=== PATIENT | male | born 1950 | race Caucasian/White ===

== ENCOUNTER → 2020-04-01 15:28 | Outpatient (BNVA) | payer MEDICARE, SELFPAY | PROVIDERS: PCP Family Medicine; Visit Provider Internal Medicine | DX: Z13.89 Encounter for screening for other disorder (principal) | CPT/HCPCS: Q3014 ==

== ENCOUNTER 2020-07-29 14:28 | Outpatient (REF) | payer MEDICARE, SELFPAY ==
[2020-07-29 14:57] LABS: MANUAL DIFF FLAG NO
[2020-07-29 15:01] LABS: Basophils Percent Auto 0.4 % (0-2); Eosinophils Absolute Auto 0.4 X10*3/uL (0.0-0.4); Eosinophils Percent Auto 4.6 % (0-4); Hematocrit 38.9 % (42-52); Hemoglobin 12.8 g/dl (14.0-18.0); Imm Gran Abs Auto 0.03 X10*3/uL (0.00-0.03); Imm Gran Pct Auto 0.4 % (0.0-0.4); Lymphocytes Absolute Auto 2.3 X10*3/uL (1.2-4.9); Lymphocytes Percent Auto 29.2 % (20-40); Mean Corpuscular HGB Conc 32.9 g/dl (31.0-36.0); Mean Corpuscular Hemoglobin 30.1 pg (27.0-33.0); Mean Corpuscular Volume 91.5 fL (80-98); Mean Platelet Volume 9.9 fL (9.4-12.4); Monocytes Absolute Auto 0.9 X10*3/uL (0.1-1.2); Monocytes Percent Auto 11.8 % (2-11); Neutrophils Absolute Auto 4.2 X10*3/uL (2.0-8.3); Neutrophils Percent Auto 53.6 % (45-73); Platelet Count 189 X10*3/uL (160-400); Red Blood Count 4.25 X10*6/uL (4.60-5.80); Red Cell Distribution Width 13.3 % (11.0-16.0); White Blood Count 7.8 X10*3/uL (4.8-10.8)
[2020-07-29 15:25] LABS: Alanine Aminotransferase 35 U/L (0-40); Anion Gap 11 (12-20); Aspartate Amino Transferase 31 U/L (5-37); Blood Urea Nitrogen 17 mg/dL (9-16); Carbon Dioxide 25 mmol/L (22-29); Chloride 110 mmol/L (96-108); Estimated Glomerular Filt Rate > 60; Potassium 3.9 mmol/L (3.3-5.1); Sodium 142 mmol/L (135-145)
== END 2020-07-29 14:29 | disposition home or self-care (01) ==
LOC: HO.LAB 14:28
PROVIDERS: PCP Family Medicine; Visit Provider Family Medicine
DX: I10 Essential (primary) hypertension (principal); E78.00 Pure hypercholesterolemia, unspecified; R06.02 Shortness of breath; Z79.899 Other long term (current) drug therapy
CPT/HCPCS: 36415; 80051; 82550; 82565; 84450; 84460; 84520; 85025

== ENCOUNTER 2020-12-30 14:30 | Outpatient (REF) | payer MEDICARE, SELFPAY ==
[2020-12-30 15:18] LABS: Cholesterol 116 mg/dL; Glucose Fasting 126 mg/dL (60-99); HDL Cholesterol 30 mg/dL; LDL Cholesterol Calculated 55 mg/dl; Triglycerides 156 mg/dL
== END 2020-12-30 14:31 | disposition home or self-care (01) ==
LOC: HO.LAB 14:30
PROVIDERS: PCP Family Medicine; Visit Provider Family Medicine
DX: E78.00 Pure hypercholesterolemia, unspecified (principal); I10 Essential (primary) hypertension; Z79.899 Other long term (current) drug therapy
CPT/HCPCS: 36415; 80061; 82947

== ENCOUNTER 2021-02-23 16:13 | Outpatient (REF) | payer MEDICARE, SELFPAY ==
[2021-02-23 19:09] LABS: Alanine Aminotransferase 35 U/L (0-40); Anion Gap 13 (12-20); Aspartate Amino Transferase 30 U/L (5-37); Blood Urea Nitrogen 15 mg/dL (9-16); Carbon Dioxide 25 mmol/L (22-29); Chloride 106 mmol/L (96-108); Estimated Glomerular Filt Rate > 60; Potassium 4.3 mmol/L (3.3-5.1); Sodium 140 mmol/L (135-145)
== END 2021-02-23 16:14 | disposition home or self-care (01) ==
LOC: HO.LAB 16:13
PROVIDERS: PCP Family Medicine; Visit Provider Family Medicine
DX: I10 Essential (primary) hypertension (principal); E78.00 Pure hypercholesterolemia, unspecified; Z79.899 Other long term (current) drug therapy
CPT/HCPCS: 36415; 80051; 82550; 82565; 84450; 84460; 84520

== ENCOUNTER → 2021-05-06 14:49 | Outpatient (BNVA) | payer MEDICARE, SELFPAY | PROVIDERS: PCP Family Medicine; Visit Provider Internal Medicine | DX: I25.10 Atherosclerotic heart disease of native coronary artery without angina pectoris (principal); I10 Essential (primary) hypertension; E78.5 Hyperlipidemia, unspecified; K21.9 Gastro-esophageal reflux disease without esophagitis; Z79.899 Other long term (current) drug therapy; Z95.5 Presence of coronary angioplasty implant and graft | CPT/HCPCS: 93005; 99212 ==

== ENCOUNTER 2021-09-25 10:37 | Outpatient (REF) | payer MEDICARE, SELFPAY ==
[2021-09-25 11:07] LABS: COVID-19 Test Negative (Negative); IDNOW Serial# 08D9AD1C
== END 2021-09-25 10:38 | disposition home or self-care (01) ==
LOC: HO.LAB 10:37
PROVIDERS: Visit Provider Internal Medicine
DX: Z20.822 Contact with and (suspected) exposure to COVID-19 (principal)
CPT/HCPCS: 87635; C9803

== ENCOUNTER 2021-09-28 13:09 | Outpatient (REF) | payer MEDICARE, SELFPAY ==
--- NOTE | ~2021-09-28 | XR_ITS ---
EXAMINATION: XR CHEST CLINICAL INFORMATION: Cough. COPD. COMPARISON: Previous chest x-ray most recent December 2018 TECHNIQUE: 2 views of the chest were obtained. FINDINGS: The cardiac and mediastinal contours are stable. The lungs are well inflated. There are increased markings seen in the left lower lobe questionable for small infiltrate. There is blunting at the left costophrenic angle questionable for small left pleural effusion. The right lung is clear. There are degenerative changes of the spine. XR/XR chest 2V IMPRESSION: Well-inflated lungs. Question small left lower lobe infiltrate and left pleural effusion.
== END 2021-09-28 13:10 | disposition home or self-care (01) ==
LOC: HO.XRAY 13:09
PROVIDERS: PCP Family Medicine; Visit Provider Family Medicine
DX: J44.9 Chronic obstructive pulmonary disease, unspecified (principal); R05.9 Cough, unspecified
CPT/HCPCS: 71046

== ENCOUNTER 2021-10-21 16:21 | Outpatient (REF) | payer MEDICARE, SELFPAY ==
[2021-10-21 17:42] LABS: Alanine Aminotransferase 26 U/L (0-40); Anion Gap 12 (12-20); Aspartate Amino Transferase 30 U/L (5-37); Blood Urea Nitrogen 16 mg/dL (9-16); Carbon Dioxide 24 mmol/L (22-29); Chloride 108 mmol/L (96-108); Estimated Glomerular Filt Rate > 60; Potassium 4.3 mmol/L (3.3-5.1); Sodium 140 mmol/L (135-145)
== END 2021-10-21 16:22 | disposition home or self-care (01) ==
LOC: HO.LAB 16:21
PROVIDERS: PCP Family Medicine; Visit Provider Family Medicine
DX: I10 Essential (primary) hypertension (principal); K75.81 Nonalcoholic steatohepatitis (NASH)
CPT/HCPCS: 36415; 80051; 82565; 84450; 84460; 84520

== ENCOUNTER → 2021-11-10 15:11 | Outpatient (BNVA) | payer MEDICARE, SELFPAY | PROVIDERS: PCP Family Medicine; Referring Provider Family Medicine; Visit Provider Internal Medicine | DX: I25.10 Atherosclerotic heart disease of native coronary artery without angina pectoris (principal); I10 Essential (primary) hypertension; E78.5 Hyperlipidemia, unspecified; E66.01 Morbid (severe) obesity due to excess calories; K21.9 Gastro-esophageal reflux disease without esophagitis; Z95.5 Presence of coronary angioplasty implant and graft; Z68.41 Body mass index [BMI] 40.0-44.9, adult | CPT/HCPCS: 99212 ==

== ENCOUNTER → 2022-03-24 16:05 | Outpatient (BNVA) | payer MEDICARE, SELFPAY | PROVIDERS: PCP Family Medicine; Visit Provider Psychiatry & Neurology Psychiatry | DX: F41.0 Panic disorder [episodic paroxysmal anxiety] (principal); F41.1 Generalized anxiety disorder; F43.10 Post-traumatic stress disorder, unspecified; G25.0 Essential tremor; Z79.899 Other long term (current) drug therapy | CPT/HCPCS: 99212 ==

== ENCOUNTER 2022-04-05 16:53 | Outpatient (REF) | payer MEDICARE, SELFPAY ==
[2022-04-05 17:03] LABS: MANUAL DIFF FLAG NO
[2022-04-05 17:28] LABS: Basophils Absolute Auto 0.1 X10*3/uL (0.0-0.2); Basophils Percent Auto 0.6 % (0-2); Eosinophils Absolute Auto 0.4 X10*3/uL (0.0-0.4); Eosinophils Percent Auto 4.3 % (0-4); Hematocrit 39.3 % (42.0-52.0); Hemoglobin 13.3 g/dl (14.0-18.0); Imm Gran Abs Auto 0.02 X10*3/uL (0.00-0.03); Imm Gran Pct Auto 0.2 % (0.0-0.4); Lymphocytes Absolute Auto 3.1 X10*3/uL (1.2-4.9); Lymphocytes Percent Auto 37.8 % (20-40); Mean Corpuscular HGB Conc 33.8 g/dl (31.0-36.0); Mean Corpuscular Hemoglobin 30.4 pg (27.0-33.0); Mean Corpuscular Volume 89.7 fL (80.0-98.0); Mean Platelet Volume 10.2 fL (9.4-12.4); Monocytes Absolute Auto 0.7 X10*3/uL (0.1-1.2); Monocytes Percent Auto 8.8 % (2-11); Neutrophils Absolute Auto 3.9 x10*3/uL (2.0-8.3); Neutrophils Percent Auto 48.3 % (45-73); Platelet Count 219 X10*3/uL (160-400); Red Blood Count 4.38 X10*6/uL (4.60-5.80); Red Cell Distribution Width 13.2 % (11.0-16.0); White Blood Count 8.2 X10*3/uL (4.8-10.8)
[2022-04-05 17:48] LABS: Alanine Aminotransferase 23 U/L (0-40); Anion Gap 12 (12-20); Aspartate Amino Transferase 25 U/L (5-37); Blood Urea Nitrogen 18 mg/dL (9-16); Carbon Dioxide 23 mmol/L (22-29); Chloride 108 mmol/L (96-108); Estimated Glomerular Filt Rate > 60; Potassium 4.2 mmol/L (3.3-5.1); Sodium 139 mmol/L (135-145)
== END 2022-04-05 16:54 | disposition home or self-care (01) ==
LOC: HO.LAB 16:53
PROVIDERS: PCP Family Medicine; Visit Provider Family Medicine
DX: I10 Essential (primary) hypertension (principal); R06.02 Shortness of breath; E78.00 Pure hypercholesterolemia, unspecified; Z79.899 Other long term (current) drug therapy
CPT/HCPCS: 36415; 80051; 82550; 82565; 84450; 84460; 84520; 85025

== ENCOUNTER → 2022-06-15 16:37 | Outpatient (BNVA) | payer MEDICARE, SELFPAY | PROVIDERS: PCP Family Medicine; Visit Provider Psychiatry & Neurology Psychiatry | DX: F43.10 Post-traumatic stress disorder, unspecified (principal); F41.1 Generalized anxiety disorder; F41.0 Panic disorder [episodic paroxysmal anxiety]; G25.0 Essential tremor; I10 Essential (primary) hypertension; E66.01 Morbid (severe) obesity due to excess calories | CPT/HCPCS: 99212 ==

== ENCOUNTER 2022-06-16 13:13 | Day surgery (SDC) | payer MEDICARE, SELFPAY ==
[2022-06-16 13:29] VITALS: BP 153/72; PULSE 90; RESP 18; TEMP 36.9; O2SAT 96; BMI 44.6
[2022-06-16 13:43] VITALS: BMI 44.6
--- NOTE | 2022-06-16 13:51 | P.CONAN_ITS ---
[facility] Active Problems Active Problems: All Active Problems (Updated 04/21/22 @ 11:22 by Alan Navarro MD) Benign essential tremor (Acute) Post traumatic stress disorder (PTSD) (Acute) Generalized anxiety disorder (Acute) Panic disorder (Acute) Morbid obesity due to excess calories (Acute) Other and unspecified hyperlipidemia (Acute) GERD (gastroesophageal reflux disease) (Acute) Essential hypertension (Acute) Stented coronary artery (Acute) Atherosclerotic cardiovascular disease (Acute) Past Medical History Medical History (Updated 04/21/22 @ 11:22 by Alan Navarro MD) Atherosclerotic cardiovascular disease Benign essential tremor Essential hypertension GERD (gastroesophageal reflux disease) Other and unspecified hyperlipidemia Panic disorder Post traumatic stress disorder (PTSD) Family History Family History Father Stroke Mother No problems noted. Family history of problems with anesthesia: No Surgical History Surgical History History of cardiac catheterization (~06/19/19) Stented coronary artery History of Problems with Anesthesia: No Social History Social History Are you DNR?: No Advance Directives: No Advance Directives Information Provided: Yes Meds Allergies Allergy/AdvReac Type Severity Reaction Status Date / Time No Known Allergies Allergy Verified 11/10/21 15:23 [No Known Allergies*] Active Medications: Current Medications Lactated Ringer's (Lr) 1,000 mls @ 50 mls/hr IVCONT .Q20H [facility] Home Medications Medication Instructions Recorded Confirmed Last Taken Type amlodipine 5 mg tablet 5 mg PO DAILY 04/01/20 06/16/22 Unknown History cholecalciferol (vitamin D3) 25 25 mcg PO DAILY 04/01/20 06/16/22 Unknown History mcg (1,000 unit) capsule fenofibrate 160 mg tablet 160 mg PO DAILY 04/01/20 06/16/22 Unknown History isosorbide mononitrate 30 mg 30 mg PO DAILY 04/01/20 06/16/22 Unknown History tablet,extended release 24 hr loratadine 10 mg tablet (Allergy 10 mg PO DAILY 04/01/20 06/16/22 Unknown History Relief (loratadine)) nitroglycerin 0.4 mg sublingual 0.4 mg sublingual Q5M 04/01/20 06/16/22 Unknown History tablet omeprazole 40 mg capsule,delayed 40 mg PO BID 03/24/22 06/16/22 Unknown History release trazodone 100 mg tablet 50 mg PO BEDTIME 03/24/22 06/15/22 Unknown History propranolol 60 mg tablet 60 mg PO BID 06/15/22 06/16/22 Unknown History Exam Exam Date and Time: June 16, 2022 1351 Height,Weight and Vital Signs: Height 5 ft 11 in Weight 145.15 kg Last Vital Signs Temp 98.4 F 06/16/22 13:29 Pulse 90 06/16/22 13:29 Resp 18 06/16/22 13:29 BP 153/72 H 06/16/22 13:29 Pulse Ox 96 06/16/22 13:29 O2 Del Method 06/16/22 13:29 Airway Mallampati Class: II (Poor dentition, noting loose) TM Dist: >3cm Neck ROM: Full Heart: rrr Lungs: cta Assessment and Plan Assessment Anesthesia Assessment: Anesthesia Plan Discussed and Chart Reviewed Final Anesthetic Review Family History of Problems with Anesthesia: No History of Problems with Anesthesia: No NPO: Yes ASA Class: III Final Preanesthetic Review: No Changes in Pt Med Stat, Meds/Allgs Chart Reviewed and Consent Obtained/Reviewed Patient Risk: Intermediate Procedure Risk: Intermediate Anesthetic Plan Anesthetic Plan: MAC: Disposition: Standard PACU
[2022-06-16 13:54] VITALS: BP 153/76; PULSE 90; RESP 18; TEMP 36.9; O2SAT 96
[2022-06-16] MEDS: Lactated Ringers 1,000 ML 50 ML IVCONT (14:10)
--- NOTE | 2022-06-16 14:46 | MHC.SHP ---
Pre-Procedural Eval Section A Date of Service: 06/16/22 The patient is an INPATIENT: No Changes since office visit: No Cold of Flu in the past 2 weeks, No New Medical Problems, No Changes in Medication and No Patient answered all questions The History & Physical has been completed within 30 days and I have reviewed it.: Yes Section B Chief Complaint: reflux disease,screening Allergies: Allergies Allergy/AdvReac Type Severity Reaction Status Date / Time No Known Allergies Allergy Verified 11/10/21 15:23 [No Known Allergies*] Plan I have reviewed the history and physical and performed a pertinent physical examination on my patient. No changes have occurred unless specified. Time Spent With Patient Time: Total time managing care of this patient today ____ minutes.
--- NOTE | 2022-06-16 15:51 | P.BOP_ITS ---
Brief Operative Note Date of Service: 06/16/22 Pre-op diagnosis: gerd screening Post-op diagnosis: same Procedure: egd/colonoscopy Surgeon: Jono Lay Anesthesia: MAC Was an Telemetry Registered Nurse used for this Procedure?: No Estimated blood loss (mL): 5 Pathology: other Condition: stable Disposition: PACU
[2022-06-16 15:53] VITALS: BP 104/40; PULSE 70; RESP 16; TEMP 36.1; O2SAT 99
[2022-06-16 16:08] VITALS: BP 140/79; PULSE 77; RESP 16; O2SAT 94
[2022-06-16 16:23] VITALS: BP 126/66; PULSE 72; RESP 17; TEMP 36.6; O2SAT 96
--- NOTE | 2022-06-17 03:27 | OP_ITS ---
SURGEON: Jono Lay MD PREOPERATIVE DIAGNOSIS: Gastroesophageal reflux disease, colon cancer screening and constipation. POSTOPERATIVE DIAGNOSIS: PROCEDURE PERFORMED: Upper endoscopy with biopsy, colonoscopy to the right colon with snare polypectomy. ESTIMATED BLOOD LOSS: COMPLICATIONS: ANESTHESIA: ASSISTANTS: SPECIMENS: MEDICATIONS: Monitored anesthesia care. PROCEDURE DESCRIPTION: The procedure was performed on 06/16/2022. A history and physical performed. The risks and benefits of the procedure were explained to the patient and informed consent was obtained. The patient was placed in the left lateral decubitus position. The Olympus video gastroscope was introduced into the esophagus, stomach, and duodenum. Examination was performed. The scope was removed. He was repositioned for colonoscopy. A digital rectal exam was performed and was found to be normal. The Olympus pediatric video colonoscope was introduced into the rectum. The scope could only be advanced to the right colon. The scope was removed. The Olympus adult colonoscope was inserted and advanced to the right colon with the assistance of abdominal wall pressure. The cecum could be identified, but the scope could not be passed down below the ileocecal valve it was estimated at 95% of the colon was examined. Examination was performed. The scope was removed. He tolerated both procedures well and was taken to the recovery area in stable condition. FINDINGS: Upper endoscopy: Esophagus, the esophagus was normal. The EG junction was biopsied. There was no esophagitis. The stomach was normal. Biopsies were obtained from the antrum. Duodenum. The bulb and 2nd portion were normal. Colonoscopy. The terminal ileum was not examined. There were some segments of the colon, particularly the sigmoid with moderate amounts of stool limiting the omkar examination for detection of small polyps this was washed and suctioned. In the right colon was a 6 mm polyp was removed with a cold snare and recovered with biopsy forceps. No other polyps were identified. Retroflexed examination showed internal hemorrhoids. There was moderate sigmoid diverticulosis. IMPRESSION: 1. Gastroesophageal reflux disease. 2. Colon polyp. RECOMMENDATION: 1. Follow up the biopsy results. 2. The colonoscopy was 95% complete, but because of looping, the cecum could not be well seen. Recommendation is for repeat colonoscopy within 12 months.. MD BETTE Rao/BECKY / [id number] [facility]
== END 2022-06-16 17:00 | disposition home or self-care (01) ==
PROVIDERS: PCP Family Medicine; Visit Provider Internal Medicine Gastroenterology
PROC: (CPT 45385; principal; 2022-06-16 14:20)
DX: Z12.11 Encounter for screening for malignant neoplasm of colon (principal); D12.2 Benign neoplasm of ascending colon; K57.30 Diverticulosis of large intestine without perforation or abscess without bleeding; K64.8 Other hemorrhoids; K59.00 Constipation, unspecified; K21.9 Gastro-esophageal reflux disease without esophagitis; I25.10 Atherosclerotic heart disease of native coronary artery without angina pectoris; Z98.61 Coronary angioplasty status; I10 Essential (primary) hypertension; E78.00 Pure hypercholesterolemia, unspecified; G25.0 Essential tremor; F43.10 Post-traumatic stress disorder, unspecified; Z79.899 Other long term (current) drug therapy; Z87.891 Personal history of nicotine dependence
CPT/HCPCS: 45385; 45380; 43239; 88305; 88342

== ENCOUNTER 2022-09-27 16:34 | Outpatient (REF) | payer MEDICARE, SELFPAY ==
[2022-09-27 16:45] LABS: MANUAL DIFF FLAG NO
[2022-09-27 17:39] LABS: Basophils Percent Auto 0.4 % (0-2); Eosinophils Absolute Auto 0.7 X10*3/uL (0.0-0.4); Eosinophils Percent Auto 8.8 % (0-4); Hematocrit 39.6 % (42.0-52.0); Hemoglobin 13.4 g/dl (14.0-18.0); Imm Gran Abs Auto 0.03 X10*3/uL (0.00-0.03); Imm Gran Pct Auto 0.4 % (0.0-0.4); Lymphocytes Absolute Auto 2.7 X10*3/uL (1.2-4.9); Lymphocytes Percent Auto 32.3 % (20-40); Mean Corpuscular HGB Conc 33.8 g/dl (31.0-36.0); Mean Corpuscular Hemoglobin 30.7 pg (27.0-33.0); Mean Corpuscular Volume 90.6 fL (80.0-98.0); Mean Platelet Volume 10.6 fL (9.4-12.4); Monocytes Absolute Auto 0.7 X10*3/uL (0.1-1.2); Monocytes Percent Auto 8.9 % (2-11); Neutrophils Absolute Auto 4.1 x10*3/uL (2.0-8.3); Neutrophils Percent Auto 49.2 % (45-73); Platelet Count 224 X10*3/uL (160-400); Red Blood Count 4.37 X10*6/uL (4.60-5.80); White Blood Count 8.3 X10*3/uL (4.8-10.8)
[2022-09-27 18:09] LABS: Alanine Aminotransferase 24 U/L (0-40); Anion Gap 14 (12-20); Aspartate Amino Transferase 26 U/L (5-37); Blood Urea Nitrogen 15 mg/dL (9-16); Carbon Dioxide 25 mmol/L (22-29); Chloride 109 mmol/L (96-108); Estimated Glomerular Filt Rate > 60; Potassium 4.5 mmol/L (3.3-5.1); Sodium 143 mmol/L (135-145)
== END 2022-09-27 16:35 | disposition home or self-care (01) ==
LOC: HO.LAB 16:34
PROVIDERS: PCP Family Medicine; Visit Provider Family Medicine
DX: I10 Essential (primary) hypertension (principal); E78.00 Pure hypercholesterolemia, unspecified; R06.02 Shortness of breath; Z79.899 Other long term (current) drug therapy
CPT/HCPCS: 36415; 80051; 82550; 82565; 84450; 84460; 84520; 85025

== ENCOUNTER 2022-09-30 14:52 | Outpatient (AMB) | payer MEDICARE, SELFPAY ==
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
== END 2022-09-30 16:33 | disposition home or self-care (01) ==
LOC: HO.HOP 14:52
PROVIDERS: PCP Family Medicine; Visit Provider Psychiatry & Neurology Psychiatry
DX: G25.0 Essential tremor (principal); F43.10 Post-traumatic stress disorder, unspecified; F41.1 Generalized anxiety disorder; F41.0 Panic disorder [episodic paroxysmal anxiety]
CPT/HCPCS: 99214

== ENCOUNTER → 2022-09-30 14:52 | Outpatient (BNVA) | payer MEDICARE, SELFPAY | PROVIDERS: PCP Family Medicine; Visit Provider Psychiatry & Neurology Psychiatry | DX: G25.0 Essential tremor (principal); G47.33 Obstructive sleep apnea (adult) (pediatric); F43.10 Post-traumatic stress disorder, unspecified; F41.1 Generalized anxiety disorder; F41.0 Panic disorder [episodic paroxysmal anxiety]; Z95.5 Presence of coronary angioplasty implant and graft; Z98.890 Other specified postprocedural states | CPT/HCPCS: 99212 ==

== ENCOUNTER 2022-11-15 15:10 | Outpatient (AMB) | payer MEDICARE, SELFPAY ==
--- NOTE | 2022-11-15 15:12 | A.OFFVIS_ITS ---
Intake Vital Signs 11/15/22 15:13 Height 5 ft 11 in Weight 318 lb 5.56 oz BMI 44.4 BP 122/76 Blood Pressure Location Rt brachial Position Sitting Pulse 56 Intake Visit Reasons: 1 YEAR FOLLOW UP Intake Note: 1 year follow up w/ EKG [employer] Professor Required: No Accompanied by: Self / Same As Patient Allergies No Known Allergies [No Known Allergies*] Allergy (Verified 11/15/22 15:15) Medication List - Last Reconciled 11/15/22 by Judah Soni MD amlodipine 5 mg PO DAILY cholecalciferol (vitamin D3) 25 mcg PO DAILY clonazepam 1 mg PO TID clopidogrel 75 mg PO DAILY escitalopram oxalate 20 mg PO DAILY 90 days fenofibrate 160 mg PO DAILY gabapentin mg PO isosorbide mononitrate ER 30 mg PO DAILY loratadine (Allergy Relief (loratadine)) 10 mg PO DAILY nitroglycerin 0.4 mg sublingual Q5M omeprazole 40 mg PO BID primidone orally; 1 tab in the am 3 tabs bedtime propranolol 60 mg PO BID rosuvastatin 40 mg PO DAILY trazodone 50 mg PO BEDTIME HPI HPI Comments History of Present Illness Details Yoshi returns for follow-up regarding coronary disease. In the past, due to symptoms of heartburn, he underwent noninvasive testing with stress testing followed by coronary CT. These were abnormal leading to cardiac catheterization. He underwent stenting of the right coronary artery. Overall, feeling good. No specific complaints like angina or shortness of breath. He also has some acid reflux symptoms but that is better now as well. He also has underlying anxiety and according to patient he feels also better from that standpoint. [facility] Medical History (Updated 04/21/22 @ 11:22 by Alan Navarro MD) Atherosclerotic cardiovascular disease Benign essential tremor Essential hypertension GERD (gastroesophageal reflux disease) Other and unspecified hyperlipidemia Panic disorder Post traumatic stress disorder (PTSD) Surgical History History of cardiac catheterization (~06/19/19) Stented coronary artery Family History Father Stroke Mother No problems noted. Review of Systems Const Denies weakness ENT Denies dizziness Card Denies chest pain, Denies chest pain with activity, Denies syncope, Denies rapid heart rate, Denies pedal edema, Denies edema, Denies leg edema, Denies lightheadedness, Denies palpitations, Denies dyspnea, Denies dyspnea on exertion and Denies orthopnea Resp Denies cough, Denies dyspnea and Denies dyspnea on exertion GI Denies hematochezia and Denies change in stool character Musc Denies abnormal gait, Denies muscle cramps, Denies muscle weakness, Denies n umbness, Denies radiating pain into limb and Denies tingling Neuro Denies abnormal gait, Denies dizziness, Denies syncope, Denies numbness, Denies tingling and Denies weakness Endo Denies palpitations Physical Exam Vital Signs: Last Vital Signs Pulse 56 11/15/22 15:13 BP 122/76 11/15/22 15:13 BMI result Body Mass Index 44.4 Const General: comfortable and no acute distress Orientation/consciousness: patient oriented x3 HEENT Other: Unremarkable Head: Yes normal to inspection Neck Neck: Yes normal visual inspection Chest Chest palpation & inspection: normal inspection of the chest Resp Auscultation: clear to auscultation bilaterally Cardio Palpation: normal PMI Heart sounds: S1 normal heart sound present, S2 normal heart sound present, no gallops, no murmurs and no rubs GI Palpation (GI): Soft to palpation Back/Spine/Pelvis Other: unremarkable Skin General skin exam: no rashes or lesions noted Neuro General: patient oriented x3 Extrem General: Yes normal to inspection Psych Mental Status: mental status grossly normal Office Procedures EKG Details: EKG with sinus rhythm at 56/Min; possible left atrial enlargement; lateral T inversions. Overall, unchanged from before. [id number], Complete Assessment & Plan Assessment & Plan (1) Atherosclerotic cardiovascular disease: Code(s): I25.10 - Atherosclerotic heart disease of [place] coronary artery without angina pectoris (2) Stented coronary artery: Code(s): Z95.5 - Presence of coronary angioplasty implant and graft (3) Essential hypertension: Code(s): I10 - Essential (primary) hypertension (4) Other and unspecified hyperlipidemia: Code(s): E78.5 - Hyperlipidemia, unspecified (5) Morbid obesity due to excess calories: Code(s): E66.01 - Morbid (severe) obesity due to excess calories (6) GERD (gastroesophageal reflux disease): Code(s): K21.9 - Gastro-esophageal reflux disease without esophagitis Qualifiers: Esophagitis presence: esophagitis presence not specified Qualified Code(s): K21.9 - Gastro-esophageal reflux disease without esophagitis Plan Cardiac catheterization in the past with moderate distal left main lesion; additional lesions in both the 1st diagonal as well as right coronary artery. He underwent intervention to right coronary artery (05/2019). He remains stable without any angina. Continue Plavix only. He does not need aspirin as he has lot of acid reflux as well. Seems he might still be taking advised to stop. Continue long-acting nitrates/amlodipine. Stable blood pressure. Continue statins. Obesity still an issue, but doubt if he can lose meaningful weight. Otherwise, stable and we will see him in 1 year. He will call us with any concerns. Medications: New nitroglycerin do not exceed 3 doses per episode 0.4 mg sublingual Q5M PRN 30 tabs 5RF chest pain R07.2 - Precordial pain Coding Level of Care Code Est Pt Level 4 (92795) Diagnoses Atherosclerotic cardiovascular disease I25.10 Stented coronary artery Z95.5 Essential hypertension I10 Other and unspecified hyperlipidemia E78.5 Morbid obesity due to excess calories E66.01 GERD (gastroesophageal reflux disease) K21.9 Esophagitis presence: esophagitis presence not specified CPT Codes EKG - CPT: 32766-[id number], Complete ([id number])
[2022-11-15 15:13] VITALS: BP 122/76; PULSE 56; BMI 44.4
== END 2022-11-15 15:34 | disposition home or self-care (01) ==
PROVIDERS: Visit Provider Internal Medicine
DX: I25.10 Atherosclerotic heart disease of native coronary artery without angina pectoris (principal); Z95.5 Presence of coronary angioplasty implant and graft; I10 Essential (primary) hypertension; E78.5 Hyperlipidemia, unspecified; E66.01 Morbid (severe) obesity due to excess calories; K21.9 Gastro-esophageal reflux disease without esophagitis
CPT/HCPCS: 93010; 99214

== ENCOUNTER → 2022-11-15 15:10 | Outpatient (BNVA) | payer MEDICARE, SELFPAY | PROVIDERS: Visit Provider Internal Medicine | DX: I25.10 Atherosclerotic heart disease of native coronary artery without angina pectoris (principal); I10 Essential (primary) hypertension; E78.5 Hyperlipidemia, unspecified; E66.01 Morbid (severe) obesity due to excess calories; K21.9 Gastro-esophageal reflux disease without esophagitis; Z95.5 Presence of coronary angioplasty implant and graft; Z68.41 Body mass index [BMI] 40.0-44.9, adult | CPT/HCPCS: 93005; 99212 ==

== ENCOUNTER 2023-01-18 16:11 | Outpatient (REF) | payer MEDICARE, SELFPAY | END 2023-01-18 16:12 | disposition home or self-care (01) | LOC: HO.US 16:11 | PROVIDERS: PCP Family Medicine; Visit Provider Family Medicine | DX: N40.1 Benign prostatic hyperplasia with lower urinary tract symptoms (principal); R35.0 Frequency of micturition | CPT/HCPCS: 76857 ==

== ENCOUNTER → 2023-02-22 16:31 | Outpatient (BNVA) | payer MEDICARE, SELFPAY | PROVIDERS: PCP Family Medicine; Visit Provider Psychiatry & Neurology Psychiatry ==

== ENCOUNTER 2023-03-29 16:50 | Outpatient (REF) | payer MEDICARE, SELFPAY ==
[2023-03-29 17:03] LABS: MANUAL DIFF FLAG NO
[2023-03-29 18:07] LABS: Alanine Aminotransferase 25 U/L (0-40); Anion Gap 12 (12-20); Aspartate Amino Transferase 29 U/L (5-37); Blood Urea Nitrogen 18 mg/dL (9-16); Carbon Dioxide 24 mmol/L (22-29); Chloride 109 mmol/L (96-108); Estimated Glomerular Filt Rate > 60; Potassium 4.2 mmol/L (3.3-5.1); Sodium 141 mmol/L (135-145)
[2023-03-29 18:08] LABS: Basophils Absolute Auto 0.1 X10*3/uL (0.0-0.2); Basophils Percent Auto 0.5 % (0-2); Eosinophils Absolute Auto 0.5 X10*3/uL (0.0-0.4); Eosinophils Percent Auto 5.8 % (0-4); Hemoglobin 13.4 g/dl (14.0-18.0); Imm Gran Abs Auto 0.02 X10*3/uL (0.00-0.03); Imm Gran Pct Auto 0.2 % (0.0-0.4); Lymphocytes Absolute Auto 2.6 X10*3/uL (1.2-4.9); Lymphocytes Percent Auto 28.5 % (20-40); Mean Corpuscular HGB Conc 33.5 g/dl (31.0-36.0); Mean Corpuscular Hemoglobin 30.7 pg (27.0-33.0); Mean Corpuscular Volume 91.7 fL (80.0-98.0); Mean Platelet Volume 10.5 fL (9.4-12.4); Monocytes Absolute Auto 0.9 X10*3/uL (0.1-1.2); Monocytes Percent Auto 9.7 % (2-11); Neutrophils Absolute Auto 5.1 x10*3/uL (2.0-8.3); Neutrophils Percent Auto 55.3 % (45-73); Platelet Count 213 X10*3/uL (160-400); Red Blood Count 4.36 X10*6/uL (4.60-5.80); Red Cell Distribution Width 13.2 % (11.0-16.0); White Blood Count 9.2 X10*3/uL (4.8-10.8)
== END 2023-03-29 16:51 | disposition home or self-care (01) ==
LOC: HO.LAB 16:50
PROVIDERS: PCP Family Medicine; Visit Provider Family Medicine
DX: I10 Essential (primary) hypertension (principal); E78.00 Pure hypercholesterolemia, unspecified; D64.9 Anemia, unspecified; Z79.899 Other long term (current) drug therapy
CPT/HCPCS: 36415; 80051; 82550; 82565; 84450; 84460; 84520; 85025

== ENCOUNTER 2023-06-28 17:22 | Outpatient (AMB) | payer MEDICARE, SELFPAY ==
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
== END 2023-06-28 17:23 | disposition home or self-care (01) ==
LOC: HO.HOP 17:23
PROVIDERS: PCP Family Medicine; Visit Provider Psychiatry & Neurology Psychiatry
DX: F43.11 Post-traumatic stress disorder, acute (principal); F41.1 Generalized anxiety disorder; G25.0 Essential tremor; E66.01 Morbid (severe) obesity due to excess calories
CPT/HCPCS: 99213

== ENCOUNTER → 2023-06-28 17:22 | Outpatient (BNVA) | payer MEDICARE, SELFPAY | PROVIDERS: PCP Family Medicine; Visit Provider Psychiatry & Neurology Psychiatry | DX: F43.10 Post-traumatic stress disorder, unspecified (principal); F41.1 Generalized anxiety disorder; G25.0 Essential tremor; E66.01 Morbid (severe) obesity due to excess calories | CPT/HCPCS: 99212 ==

== ENCOUNTER 2023-09-13 16:11 | Outpatient (REF) | payer MEDICARE, SELFPAY ==
[2023-09-13 17:04] LABS: Alanine Aminotransferase 23 U/L (0-40); Anion Gap 11 (12-20); Aspartate Amino Transferase 22 U/L (5-37); Carbon Dioxide 26 mmol/L (22-29); Chloride 107 mmol/L (96-108); Estimated Glomerular Filt Rate > 60; Potassium 4.4 mmol/L (3.3-5.1); Sodium 140 mmol/L (135-145)
[2023-09-13 17:26] LABS: Prostate Specific Antigen 0.86 ng/mL (<0.05-4.0)
== END 2023-09-13 16:12 | disposition home or self-care (01) ==
LOC: HO.LAB 16:11
PROVIDERS: PCP Family Medicine; Visit Provider Family Medicine
DX: I10 Essential (primary) hypertension (principal); E78.00 Pure hypercholesterolemia, unspecified; Z12.5 Encounter for screening for malignant neoplasm of prostate
CPT/HCPCS: 36415; 80051; 82550; 82565; 84153; 84450; 84460

== ENCOUNTER 2023-10-18 09:55 | Day surgery (SDC) | payer MEDICARE, SELFPAY ==
--- NOTE | 2023-10-10 12:37 | P.CONAN_ITS ---
Documented by User: Kiera Aldridge NP 10/10/23 12:39 HPI - Anesthesia Eval Consult details Narrative: 73yo M for Colonoscopy CAD s/p stent 2019. Follows [facility] cardiology yearly. Stable at 10/2022 visit. Plavix only (no asa d/t GI symptoms) PMFSH Active Problems Active Problems: All Active Problems Benign essential tremor (Acute) Post traumatic stress disorder (PTSD) (Acute) Generalized anxiety disorder (Acute) Panic disorder (Acute) Morbid obesity due to excess calories (Acute) Other and unspecified hyperlipidemia (Acute) GERD (gastroesophageal reflux disease) (Acute) Essential hypertension (Acute) Stented coronary artery (Acute) Atherosclerotic cardiovascular disease (Acute) Past Medical History Medical History Benign essential tremor Post traumatic stress disorder (PTSD) Panic disorder Other and unspecified hyperlipidemia GERD (gastroesophageal reflux disease) Essential hypertension Atherosclerotic cardiovascular disease Family History Family History Father Stroke Mother No problems noted. Family history of problems with anesthesia: No Surgical History Surgical History History of surgery on lower extremity Hx of decompression of ulnar nerve History of hernia repair Stented coronary artery History of cardiac catheterization (~06/19/19) History of Problems with Anesthesia: No Social History Social History Patient Tobacco Use Status: Former Tobacco user Meds Allergies Allergy/AdvReac Type Severity Reaction Status Date / Time No Known Allergies Allergy Verified 10/18/23 11:05 [No Known Allergies*] Home Medications ?Medication ?Instructions ?Recorded ?Confirmed ?Last Taken ?Type amlodipine 5 mg tablet 5 mg PO DAILY 04/01/20 10/18/23 06/16/22 History cholecalciferol (vitamin D3) 25 25 mcg PO DAILY 04/01/20 06/28/23 Unknown History mcg (1,000 unit) capsule fenofibrate 160 mg tablet 160 mg PO DAILY 04/01/20 10/18/23 Unknown History isosorbide mononitrate 30 mg 30 mg PO DAILY 04/01/20 10/18/23 Unknown History tablet,extended release 24 hr loratadine 10 mg tablet (Allergy 10 mg PO DAILY 04/01/20 10/18/23 Unknown History Relief (loratadine)) omeprazole 40 mg capsule,delayed 40 mg PO BID 03/24/22 10/18/23 Unknown History release propranolol 60 mg tablet 60 mg PO BID 06/15/22 10/18/23 Unknown History gabapentin 600 mg tablet 600 mg PO DAILY 09/30/22 10/18/23 Unknown History Exam Pertinent Lab Results Pertinent Lab Results: Laboratory Tests 03/29/23 09/13/23 17:02 16:23 WBC 9.2 Hgb 13.4 L Hct 40.0 L Plt Count 213 Sodium 140 Potassium 4.4 Chloride 107 Carbon Dioxide 26 BUN 18 H Creatinine 0.95 Narrative Narrative: EKG 10/2022 sinus rhythm at 56/Min; possible left atrial enlargement; lateral T inversions. Overall, unchanged from before. Assessment and Plan Assessment Anesthesia Assessment: Chart Reviewed Final Anesthetic Review Family History of Problems with Anesthesia: No History of Problems with Anesthesia: No Documented by User: Sarah Mendieta MD 10/18/23 11:50 HPI - Anesthesia Eval Consult details Narrative: 73yo M for Colonoscopy CAD s/p stent 2019. Follows [facility] cardiology yearly. Stable at 10/2022 visit. Plavix only (no asa d/t GI symptoms). Patient states taking Atenolol now, not propanolol PMFSH Active Problems Active Problems: All Active Problems Benign essential tremor (Acute) Post traumatic stress disorder (PTSD) (Acute) Generalized anxiety disorder (Acute) Panic disorder (Acute) Morbid obesity due to excess calories (Acute) Other and unspecified hyperlipidemia (Acute) GERD (gastroesophageal reflux disease) (Acute) Essential hypertension (Acute) Stented coronary artery (Acute) Atherosclerotic cardiovascular disease (Acute) DANK. Uses CPAP nightly Past Medical History Medical History Benign essential tremor Post traumatic stress disorder (PTSD) Panic disorder Other and unspecified hyperlipidemia GERD (gastroesophageal reflux disease) Essential hypertension Atherosclerotic cardiovascular disease Family History Family History Father Stroke Mother No problems noted. Family history of problems with anesthesia: No Surgical History Surgical History History of surgery on lower extremity Hx of decompression of ulnar nerve History of hernia repair Stented coronary artery History of cardiac catheterization (~06/19/19) History of Problems with Anesthesia: No Social History Social History Patient Tobacco Use Status: Former Tobacco user Meds Allergies Allergy/AdvReac Type Severity Reaction Status Date / Time No Known Allergies Allergy Verified 10/18/23 11:05 [No Known Allergies*] Home Medications ?Medication ?Instructions ?Recorded ?Confirmed ?Last Taken ?Type amlodipine 5 mg tablet 5 mg PO DAILY 04/01/20 10/18/23 06/16/22 History cholecalciferol (vitamin D3) 25 25 mcg PO DAILY 04/01/20 06/28/23 Unknown History mcg (1,000 unit) capsule fenofibrate 160 mg tablet 160 mg PO DAILY 04/01/20 10/18/23 Unknown History isosorbide mononitrate 30 mg 30 mg PO DAILY 04/01/20 10/18/23 Unknown History tablet,extended release 24 hr loratadine 10 mg tablet (Allergy 10 mg PO DAILY 04/01/20 10/18/23 Unknown History Relief (loratadine)) omeprazole 40 mg capsule,delayed 40 mg PO BID 03/24/22 10/18/23 Unknown History release propranolol 60 mg tablet 60 mg PO BID 06/15/22 10/18/23 Unknown History gabapentin 600 mg tablet 600 mg PO DAILY 09/30/22 10/18/23 Unknown History Exam Height,Weight and Vital Signs: Height 5 ft 11 in Weight 143.789 kg Vital Signs Temp Pulse Resp BP Pulse Ox O2 Del Method 10/18/23 11:27 98.2 F 60 18 147/75 H 96 Room Air Airway Mallampati Class: III TM Dist: >3cm Neck ROM: Full Loose/Missing/Broken Teeth: Yes (Poor dentition. Many broken. Many missing. Denies loose) Heart: RRR Lungs: CTAB Assessment and Plan Assessment Anesthesia Assessment: Anesthesia Plan Discussed and Chart Reviewed Final Anesthetic Review Family History of Problems with Anesthesia: No History of Problems with Anesthesia: No NPO: Yes ASA Class: III Final Preanesthetic Review: No Changes in Pt Med Stat, Meds/Allgs Chart Reviewed, Consent Obtained/Reviewed and Anes Risks/Benef Reviewed Patient Risk: Intermediate Procedure Risk: Low Assessment/Block/Sedation in SS: Assess/Block/Sedation-SS Anesthetic Plan Anesthetic Plan: GA and TIVA Disposition: Standard PACU
--- NOTE | ~2023-10-18 | CT_ITS ---
EXAMINATION: CT COLONOGRAPHY CLINICAL INFORMATION: Incomplete colonoscopy. COMPARISON: None available. TECHNIQUE: Bowel preparation: There is some retained fecal residue. Stool tagging with Gastrografin and barium: Stool tagging was not used. Colonic distention: CO2 mechanical insufflator used via enema tube with incomplete distention. Acquisition: Low dose imaging targeted to colonic was performed in the supine and prone positions. Procedure: No immediate complication reported. Review: The acquired images were reviewed in axial, coronal and sagittal planes. Additional 3-D fly through images were reviewed at an independent workstation. This CT examination was performed using dose optimization techniques as appropriate, variously including the following: *Automated exposure control *Adjustment of mA and/or kV according to patient size (this includes techniques or standardized protocols for targeted exams where dose is matched to indication/reason for exam; i.e. extremities or head) *Use of iterative reconstruction technique DLP: 784 mGy-cm FINDINGS: Colonic findings: The colon is tortuous. The colon is not fully distended. There are colonic diverticula with muscular wall thickening. There is no large colonic mass or large polyp demonstrated. Non-colonic findings: Multiple varying sized renal cysts. Due to the patient habitus and low dose technique these are not fully characterized but there is no convincing solid mass. These do not require any specific imaging follow-up. There has been abdominal wall repair. I suspect the prone images are incorrectly annotated right versus left. Some nonspecific chronic changes in the visualized lower lungs. CT/CT colonography IMPRESSION: Limited study. No large colonic mass or polyp demonstrated
[2023-10-18 11:27] VITALS: BP 147/75; PULSE 60; RESP 18; TEMP 36.8; O2SAT 96; BMI 44.2
[2023-10-18] MEDS: Lactated Ringers 1,000 ML 100 ML IVCONT (11:31)
--- NOTE | 2023-10-18 11:49 | MHC.SHP ---
Pre-Procedural Eval Section A - 24 Hr Update-Section A only Date of Service: 10/18/23 The patient is an INPATIENT: No Changes since office visit: No Cold of Flu in the past 2 weeks, No New Medical Problems, No Changes in Medication and No Patient answered all questions The patient has been examined within 24 hours of the surgical procedure. The History & Physical has been completed within 30 days and I have reviewed it.: Yes Section B - Complete if H&P > 30 days Chief Complaint: Encounter for screening for malignant neoplasm of Allergies: Allergies Allergy/AdvReac Type Severity Reaction Status Date / Time No Known Allergies Allergy Verified 10/18/23 11:05 [No Known Allergies*] Plan I have reviewed the history and physical and performed a pertinent physical examination on my patient. No changes have occurred unless specified. Time Spent With Patient Time: Total time managing care of this patient today ____ minutes.
[2023-10-18 12:31] VITALS: BP 94/40; PULSE 63; RESP 16; TEMP 36.1; O2SAT 97
--- NOTE | 2023-10-18 12:45 | OP_ITS ---
DATE OF SERVICE: 10/18/2023 SURGEON: Jono Lay MD INDICATIONS: Colon cancer screening and incomplete colonoscopy with poor prep at last visit. PREOPERATIVE DIAGNOSIS: POSTOPERATIVE DIAGNOSIS: PROCEDURE PERFORMED: Colonoscopy to the right colon. ESTIMATED BLOOD LOSS: COMPLICATIONS: ANESTHESIA: Monitored anesthesia care. ASSISTANTS: SPECIMENS: DESCRIPTION OF PROCEDURE: A history and physical was performed. The risks and benefits of the procedure were explained to the patient and informed consent was obtained. The patient was placed in the left lateral decubitus position. The Olympus video colonoscope was introduced into the rectum after digital rectal exam was performed and was found to be normal. The scope was advanced to the right colon, but could be advanced no further due to looping in the sigmoid despite the application of abdominal wall pressure. The ileocecal valve was visible, but the area below the valve could not be seen. It is estimated that 95% of the colon was examined. Examination was performed and the scope was removed. He tolerated the procedure well and was returned to recovery area in stable condition. FINDINGS: The visualized colonic mucosa was normal. There was some liquid stool left, which was suctioned. This limited the sensitivity examination for detection of small polyps. There was moderate sigmoid diverticulosis. Retroflexed examination showed small internal hemorrhoids and hypertrophic anal papillae. IMPRESSION: 1. Normal colonoscopy. 2. Incomplete examination. RECOMMENDATION: The patient will be sent x-ray for imaging with either CT colonography or barium enema if he is agreeable. MD BETTE Rao/BOBBYL / [phone]
[2023-10-18 12:46] VITALS: BP 122/30; PULSE 68; RESP 16; O2SAT 97
--- NOTE | 2023-10-18 12:58 | PC.NURSE ---
Transport here to take pt to CT
[2023-10-18 13:38] VITALS: BP 150/76; PULSE 83; RESP 16; TEMP 36.1; O2SAT 96
--- NOTE | 2023-10-18 14:24 | PC.NURSE ---
DR. RAMIREZ'S OFFICE CALLED AND LEFT. REQUESTED THAT HIS OFFICE KNOW WHETHER OR NOT TO RESTART HIS BABY ASA AND PLAVIX TODAY.
== END 2023-10-18 14:25 | disposition home or self-care (01) ==
PROVIDERS: PCP Family Medicine; Visit Provider Internal Medicine Gastroenterology
PROC: 0DJD8ZZ Inspection of Lower Intestinal Tract, Via Natural or Artificial Opening Endoscopic (ICD-10-PCS; CPT 45378; principal; 2023-10-18 12:20)
DX: Z12.11 Encounter for screening for malignant neoplasm of colon (principal); K57.30 Diverticulosis of large intestine without perforation or abscess without bleeding; K64.8 Other hemorrhoids; K56.2 Volvulus; K62.89 Other specified diseases of anus and rectum; Z86.010 Personal history of colon polyps; I10 Essential (primary) hypertension; E78.5 Hyperlipidemia, unspecified; K21.9 Gastro-esophageal reflux disease without esophagitis; F41.1 Generalized anxiety disorder; G25.0 Essential tremor; F43.10 Post-traumatic stress disorder, unspecified; F41.0 Panic disorder [episodic paroxysmal anxiety]; Z95.5 Presence of coronary angioplasty implant and graft; Z79.82 Long term (current) use of aspirin; Z79.899 Other long term (current) drug therapy; Z79.02 Long term (current) use of antithrombotics/antiplatelets
CPT/HCPCS: G0105; 74261

== ENCOUNTER 2023-11-22 14:17 | Outpatient (AMB) | payer MEDICARE, SELFPAY ==
[2023-11-22 14:20] VITALS: BP 122/70; PULSE 66; BMI 43.5
--- NOTE | 2023-11-22 14:20 | A.OFFVIS_ITS ---
Vital Signs 11/22/23 14:20 Height 5 ft 11 in Weight 312 lb 2.793 oz BMI 43.5 BP 122/70 Blood Pressure Location Rt brachial Position Sitting Pulse 66 Intake Visit Reasons: 1 YEAR FOLLOW UP Console Assembler Required: No Accompanied by: Self / Same As Patient Allergies No Known Allergies [No Known Allergies*] Allergy (Verified 10/18/23 11:05) Medication List - Last Reconciled 11/22/23 by Judah Soni MD amlodipine 5 mg PO DAILY aspirin (Adult Low Dose Aspirin) 81 mg PO DAILY cetirizine (Zyrtec) 10 mg PO DAILY PRN cholecalciferol (vitamin D3) 25 mcg PO DAILY clonazepam 1 mg PO TID clopidogrel 75 mg PO DAILY escitalopram oxalate 20 mg PO DAILY gabapentin 600 mg PO DAILY isosorbide mononitrate ER 30 mg PO DAILY nitroglycerin 0.4 mg sublingual Q5M PRN omeprazole 40 mg PO BID oxybutynin chloride 5 mg PO DAILY primidone orally; 1 tab in the am 3 tabs bedtime propranolol 60 mg PO BID rosuvastatin 40 mg PO DAILY trazodone 50 mg (1/2 x 100 mg) PO BEDTIME 90 days HPI Comments Details: Yoshi returns for follow-up regarding coronary disease. In the past, due to symptoms of heartburn, he underwent noninvasive testing with stress testing followed by coronary CT. These were abnormal leading to cardiac catheterization. He underwent stenting of the right coronary artery. For the most part, he is doing fine. He still gets the acid reflux type symptoms but that is very erratic and can happen any time. No clear exertional pattern. He also has significant anxiety at baseline but that seems controlled as well. [facility] Medical History Benign essential tremor Post traumatic stress disorder (PTSD) Panic disorder Other and unspecified hyperlipidemia GERD (gastroesophageal reflux disease) Essential hypertension Atherosclerotic cardiovascular disease Surgical History History of surgery on lower extremity Hx of decompression of ulnar nerve History of hernia repair Stented coronary artery History of cardiac catheterization (~06/19/19) Family History Father Stroke Mother No problems noted. Social History (Updated 11/22/23 @ 14:29 by Precious White CMA) Alcohol intake: former Patient Tobacco Use Status: Former Tobacco user Review of Systems Const Denies chills, Denies fatigue, Denies fever(s), Denies weight gain and Denies weight loss ENT Denies dizziness Card Denies chest pain, Denies leg edema, Denies lightheadedness, Denies palpitations, Denies dyspnea on exertion, Denies orthopnea and Denies other Resp Denies cough and Denies dyspnea on exertion GI Denies hematochezia and Denies change in stool character Musc Denies abnormal gait, Denies muscle weakness, Denies numbness, Denies radiating pain into limb and Denies tingling Neuro Denies abnormal gait, Denies dizziness, Denies numbness and Denies tingling Endo Denies fatigue and Denies palpitations Physical Exam Vital Signs: Last Vital Signs Pulse 66 11/22/23 14:20 BP 122/70 11/22/23 14:20 BMI result Body Mass Index 43.5 Const General: comfortable and no acute distress Orientation/consciousness: patient oriented x3 HEENT Other: Unremarkable Head: Yes normal to inspection Neck Neck: Yes normal visual inspection Chest Chest palpation & inspection: normal inspection of the chest Resp Auscultation: clear to auscultation bilaterally Cardio Palpation: normal PMI Heart sounds: S1 normal heart sound present, S2 normal heart sound present, no gallops, no murmurs and no rubs GI Palpation (GI): Soft to palpation Back/Spine/Pelvis Other: unremarkable Skin General skin exam: no rashes or lesions noted Neuro General: patient oriented x3 Extrem General: Yes normal to inspection Psych Mental Status: mental status grossly normal Office Procedures EKG Details: EKG with underlying sinus rhythm at 66/Min; possible left atrial enlargement; nonspecific ST-[place] [id number], Complete Assessment & Plan Assessment & Plan (1) Atherosclerotic cardiovascular disease: Code(s): I25.10 - Atherosclerotic heart disease of [place] coronary artery without angina pectoris Category: Medical (2) Stented coronary artery: Code(s): Z95.5 - Presence of coronary angioplasty implant and graft Category: Surgical (3) Essential hypertension: Code(s): I10 - Essential (primary) hypertension Category: Medical (4) Other and unspecified hyperlipidemia: Code(s): E78.5 - Hyperlipidemia, unspecified Category: Medical (5) Morbid obesity due to excess calories: Code(s): E66.01 - Morbid (severe) obesity due to excess calories Category: Medical (6) GERD (gastroesophageal reflux disease): Code(s): K21.9 - Gastro-esophageal reflux disease without esophagitis Category: Medical Qualifiers: Esophagitis presence: esophagitis presence not specified Qualified Code(s): K21.9 - Gastro-esophageal reflux disease without esophagitis Plan Cardiac catheterization from 2019 with moderate distal left main lesion; additional lesions in both the 1st diagonal as well as right coronary artery. He underwent intervention to right coronary artery (05/2019). Because of the acid reflux type symptoms, we will stop his aspirin and just keep him on Plavix. Considering his risk factor profile including morbid obesity, we will repeat a stress test to assess ischemic burden. Echocardiogram for cardiac function. Regarding other medications, he is on long-acting nitrates, amlodipine and statins. Blood pressure seems stable. No recent lipids but previously, well controlled. With regard to weight, long-term issue and doubt any meaningful change. Orders: Orders CA echo transthoracic complete Today I25.10 - Atherosclerotic heart disease of [place] coronary artery without angina pectoris CA lexiscan stress w yin Today I20.9 - Angina pectoris, unspecified, I25.10 - Atherosclerotic heart disease of [place] coronary artery without angina pectoris NM cardiolite stress test Today I25.10 - Atherosclerotic heart disease of [place] coronary artery without angina pectoris, R07.2 - Precordial pain Coding Level of Care Code Est Pt Level 4 (29489) Diagnoses Atherosclerotic cardiovascular disease I25.10 Stented coronary artery Z95.5 Essential hypertension I10 Other and unspecified hyperlipidemia E78.5 Morbid obesity due to excess calories E66.01 Gastroesophageal reflux disease, unspecified whether esophagitis present K21.9 Esophagitis presence: esophagitis presence not specified CPT Codes EKG - CPT: 20366-[id number], Complete ([id number])
== END 2023-11-22 14:48 | disposition home or self-care (01) ==
PROVIDERS: PCP Family Medicine; Visit Provider Internal Medicine
DX: I25.10 Atherosclerotic heart disease of native coronary artery without angina pectoris (principal); Z95.5 Presence of coronary angioplasty implant and graft; I10 Essential (primary) hypertension; E78.5 Hyperlipidemia, unspecified; E66.01 Morbid (severe) obesity due to excess calories; K21.9 Gastro-esophageal reflux disease without esophagitis
CPT/HCPCS: 93010; 99214

== ENCOUNTER → 2023-11-22 14:17 | Outpatient (BNVA) | payer MEDICARE, SELFPAY | PROVIDERS: PCP Family Medicine; Visit Provider Internal Medicine | DX: I25.10 Atherosclerotic heart disease of native coronary artery without angina pectoris (principal); I10 Essential (primary) hypertension; E78.5 Hyperlipidemia, unspecified; E66.01 Morbid (severe) obesity due to excess calories; K21.9 Gastro-esophageal reflux disease without esophagitis; R07.2 Precordial pain; Z95.5 Presence of coronary angioplasty implant and graft | CPT/HCPCS: 93005; 99212 ==

== ENCOUNTER 2023-12-12 14:36 | Outpatient (AMB) | payer MEDICARE, SELFPAY ==
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
== END 2023-12-12 16:24 | disposition home or self-care (01) ==
LOC: HO.HOP 14:36
PROVIDERS: PCP Family Medicine; Visit Provider Psychiatry & Neurology Psychiatry
DX: F41.1 Generalized anxiety disorder (principal); F43.10 Post-traumatic stress disorder, unspecified
CPT/HCPCS: 90833; 99213

== ENCOUNTER → 2023-12-12 14:36 | Outpatient (BNVA) | payer MEDICARE, SELFPAY | PROVIDERS: PCP Family Medicine; Visit Provider Psychiatry & Neurology Psychiatry | DX: F41.1 Generalized anxiety disorder (principal); F43.10 Post-traumatic stress disorder, unspecified | CPT/HCPCS: 99212 ==

== ENCOUNTER → 2023-12-30 08:53 | Outpatient (REF) | payer MEDICARE, SELFPAY ==
--- NOTE | ~2023-12-30 | NM_ITS ---
Lexiscan Myocardial perfusion study Indication: Coronary artery disease Technique: The patient was brought in for a Lexiscan perfusion study on 12/30/2023 and was injected 0.4 mg of Lexiscan intravenously. Within a minute of this injection 40 mCi of sestamibi was given intravenously. Images were obtained using the SPECT gamma camera interlaced with the gating device. Images were obtained in supine position. Resting perfusion study was performed on 01/02/2024. Patient was administered 40 mCi of sestamibi intravenously at rest. Images were then obtained in supine position. Total DLP 165 mGy-cm. Images were processed with the software and compared side to side in short axis, horizontal long axis and vertical long axis views. Findings: Raw aquisition reviewed. The stress perfusion study showed diminished tracer uptake along the inferior wall. There is improvement with CT attenuation correction and hence could indicate components of diaphragmatic attenuation artifact. The gated study shows normal LV systolic function with calculated LVEF of 69%. LV cavity is normal in size. The gated study shows reduced thickening in the basal to mid inferior wall. Resting study shows diminished tracer uptake in the basal to mid inferior wall. There is improvement with CT attenuation correction and hence could indicate components of diaphragmatic attenuation artifact. Gating at rest reveals reduced thickening in the basal to mid inferior wall and LVEF of 67% The findings are consistent with mostly fixed perfusion defect in the basal to mid inferior wall with some reversibility. There is also improvement with CT attenuation correction during both stress and rest. NM/NM cardiolite stress test Impression: 1. Myocardial perfusion imaging study shows probable basal to mid inferior infarct pattern with gutierrez-infarct ischemia and additionally components of diaphragmatic attenuation artifact. Difficult to differentiate the extent of perfusion defect vs attenuation artifact. 2. Gated LVEF is 69% during stress and 67% during rest. 3. Transient ischemic dilatation not present. EKG component of the test reported separately. Electronically signed by: Judah Soni MD 01/02/2024 04:10 PM EDT
--- NOTE | 2023-12-30 08:57 | CA_ITS ---
Acquisition Time: 2023-12-30 09:52:14 Total Exercise Time: 00:02:00 Test Indications: Precordial Pain. ASHD Medications: see med sheet Protocol: LEXISCAN Max HR: 076 BPM 51% of Pred: 149 BPM Max BP: 120/062 mmHG Max Work Load: 1.0 METS Pharmacological stress test with Lexiscan injection while sitting and kicking his legs, without anginal symptoms, without arrhythmias, with normotensive response to injection, with nondiagnoisitic EKGs. Aminophylline 75mg IVP given to reverse Lexiscan injection. Nuclear images pending. Test reviewed with Dr. Strickland . Referred By: Judah Soni Overread By: Airam White
--- NOTE | 2023-12-30 08:57 | CA_ITS ---
Transthoracic Echocardiogram Patient (Last, First, Middle): Yoshi Mackenzie A Gender: Male Date of : 1950 Age: 73 Procedure Date: 12/30/2023 Procedure Type: Transthoracic Echocardiogram Location: OP Height: 180. cm Weight: 145.15 kg BSA: 2.57 m2 Heart Rate: 55 bpm BP: 125 / 75 mmHg Crab Butcher: MADHAVI Referring MD: Judah Soni MD Symptoms: I25.10 - Atherosclerotic heart disease of [place] coronary artery without... Study Quality: Adequate w/Contrast ECG Rhythm: Bradycardia Conclusions: - Normal left ventricular size and systolic function. There is severely increased left ventricular wall thickness. The visually estimated ejection fraction is between 60-65%. - E/E prime ratio is between 8 and 15 consistent with indeterminate filling pressures. - Normal right ventricular cavity size and systolic function. - There is mild dilatation of the sinuses of Valsalva measuring 4.20 cm and mild dilatation of the ascending aorta measuring 3.90 cm. Findings Procedure Information Contrast agent, definity, is being given per protocol without apparent complications. Left Ventricle Normal left ventricular size and systolic function. There is severely increased left ventricular wall thickness. The visually estimated ejection fraction is between 60-65%. There is no evidence of regional wall motion abnormalities. Abnormal diastolic function is noted. Spectral Doppler is indicative of an impaired relaxation filling pattern. E/E prime ratio is between 8 and 15 consistent with indeterminate filling pressures. Right Ventricle Normal right ventricular cavity size and systolic function. Atria The left atrium is normal in size. The right atrium is normal in size. Aortic Valve Normal aortic valve structure and function. There is no aortic valve stenosis. There is no aortic valve regurgitation. Mitral Valve The mitral valve appears normal. There is no mitral valve regurgitation. There is no mitral valve stenosis. Pulmonic Valve The pulmonic valve is normal. There is no pulmonic valve regurgitation. Tricuspid Valve Normal tricuspid valve structure. There is no tricuspid valve regurgitation. Tricuspid regurgitation envelope is inadequate for calculation of right ventricular systolic pressure. Normal right atrial pressure. Great Vessels There is mild dilatation of the sinuses of Valsalva measuring 4.20 cm and mild dilatation of the ascending aorta measuring 3.90 cm. Venous The inferior vena cava is normal in size and collapses greater than 50% with inspiration. Pericardium/Pleural There is no evidence of pericardial effusion. Prior Study Comparison Changes noted compared to prior study dated: 03/29/2019. Severe LVH. Mild dilation of aorta. Measurements 2D Linear Measurements IVSd: 1.63 0.6-0.9/0.6-1.0 cm LVIDd: 5.00 3.9-5.3/4.2-5.9 cm LVIDd Index: 1.95 2.4-3.2/2.2-3.1 cm/m2 LVIDs: 3.00 2.0-3.6 cm LVPWd: 1.47 0.7-1.1 cm LA Diam: 3.40 2.7-3.8/3.0-4.0 cm LAIDs Index: 1.32 1.5-2.3 cm/m2 LV Mass: 422.70 67-162/88-224 g LV Mass Index: 164.47 43-95/49-115 g/m2 LVOT Diam: 2.20 3.0+(-)1.3 cm 2D Systolic Function EF 4C: 60.10 >55% EF 2C: 76.60 >55% EF BiP: 67.90 >55% Mitral Valve MV Pk E: 0.79 MV PK A: 0.85 MV Decel Time: 239.00 E/A: 0.90 E'Lateral: 6.74 E'Medial: 5.55 E/E' Med: 14.20 E/E' Lat: 11.70 PHT: 70.00 MVA PHT: 3.14 Decel Ventura: 3.29 Aortic Valve AoV Pk Justin: 1.39 AoV Mn Justin: 0.91 AoV VTI: 0.32 AoV Pk Grad: 8.00 Aov Mn Grad: 4.00 KAREN Cont.VTI: 3.38 LVOT LVOT Pk Justin: 1.37 LVOT Mn Justin: 0.83 LVOT VTI: 0.28 LVOT Pk Grad: 8.00 LVOT Mn Grad: 3.00 LVOT Diam: 2.20 LVOT Area: 3.80 Diastolic Function MV Pk E: 0.79 MV Pk A: 0.85 E/A: 0.90 E'Medial: 5.55 E/E' Med: 14.20 E' Laterial: 6.74 E/E' Lat: 11.70 Right Ventricle TAPSE (mm): 24.40 TVS' Justin: 14.60 Tricuspid Valve TR Pk Justin: 2.20 TR Pk Grad: 19.00 Great Vessels Aorta Sinus of Valsalva: 4.20 2.0-3.5 cm Ao Asc: 3.90 2.1-3.4 cm Ao Arch: 3.30 Pulmonary Valve PV Pk Justin: 0.98 Peak PV Grad: 4.00 Updated in Other Vendor System with Status of Final Renato Strickland MD electronically signed on 12/31/2023 11:35:45 PM with status of Final
== END ==
LOC: HO.CARD 08:53
PROVIDERS: PCP Family Medicine; Visit Provider Internal Medicine
DX: R07.2 Precordial pain (principal); I25.119 Atherosclerotic heart disease of native coronary artery with unspecified angina pectoris
CPT/HCPCS: 78452; 93017; 93306; A9500; J0280; J2785; Q9957

== ENCOUNTER → 2023-12-30 08:57 | Outpatient (BNV) | payer MEDICARE, SELFPAY | PROVIDERS: PCP Family Medicine; Visit Provider Nurse Practitioner | DX: I25.10 Atherosclerotic heart disease of native coronary artery without angina pectoris (principal); R93.1 Abnormal findings on diagnostic imaging of heart and coronary circulation | CPT/HCPCS: 78452; 93016; 93018; 93320; 93325; 93350; 93352 ==

== ENCOUNTER 2024-03-21 15:22 | Outpatient (AMB) | payer MEDICARE, SELFPAY ==
--- NOTE | 2024-03-21 15:27 | A.OFFVIS_ITS ---
Intake Visit Reasons: urinary incontinence Intake Note: Patient is present for URINARY INCONTINENCE Urology Medication:TAMSULOSIN,OXYBUTYNIN Antibiotic Allergy:NONE Blood Thinner:NONE TODAY'S PVR: 17ML'S Nutrition Intern Required: No Allergies No Known Allergies [No Known Allergies*] Allergy (Verified 03/21/24 15:28) HPI Comments Details: Yoshi is a pleasant male. He is a patient of Dr. Delgado. He is seen for the following urologic conditions - urinary urgency and frequency Lower urinary tract symptoms Primarily urinary urgency and frequency PSA 09/08 0.86 Current medications include tamsulosin and oxybutynin [facility] Medical History Benign essential tremor Post traumatic stress disorder (PTSD) Panic disorder Other and unspecified hyperlipidemia GERD (gastroesophageal reflux disease) Essential hypertension Atherosclerotic cardiovascular disease Surgical History History of surgery on lower extremity Hx of decompression of ulnar nerve History of hernia repair Stented coronary artery History of cardiac catheterization (~06/19/19) Family History Father Stroke Mother No problems noted. Social History (Updated 11/22/23 @ 14:29 by Precious White CMA) Alcohol intake: former Patient Tobacco Use Status: Former Tobacco user Office Procedures Post Void Residual Post Residual Void Post Void Residual (PVR): 17 [id number] Void Residual by ultrasound Results AMB Urinalysis, Automated UA Leukoctes 0 Leena/uL Last Edit by SONIA Chua on 03/21/24 15:46 UA Nitrite Negative Last Edit by SONIA Chua on 03/21/24 15:46 UA Urobilinogen 0.2 mg/dL Last Edit by SONIA Chua on 03/21/24 15:4 6 UA Protein 0 mg/dL Last Edit by SONIA Chua on 03/21/24 15:46 UA pH 6.5 Last Edit by SONIA Chua on 03/21/24 15:46 UA Blood 0 Moy/uL Last Edit by SONIA Chua on 03/21/24 15:46 UA Specific [facility] [place] 1.010 Last Edit by SONIA Chua on 03/21/24 15: 46 UA Ketone Negative Last Edit by SONIA Chua on 03/21/24 15:46 UA Bilirubin 0 mg/dL Last Edit by SONIA Chua on 03/21/24 15:46 UA Glucose 0 mg/dL Last Edit by SONIA Chua on 03/21/24 15:46 Results Reviewed Results Reviewed: Laboratory Last Values Urine pH (Auto) 6.5 03/21/24 15:45 Specific [facility] [place] (Auto) 1.010 03/21/24 15:45 Urine Protein (Auto) 0 mg/dL 03/21/24 15:45 Glucose (UA)(Auto) 0 mg/dL 03/21/24 15:45 Urine Ketones (Auto) Negative 03/21/24 15:45 Urine Blood (Auto) 0 Moy/uL 03/21/24 15:45 Urine Nitrite (Auto) Negative 03/21/24 15:45 Urine Bilirubin (Auto) 0 mg/dL 03/21/24 15:45 Urine Urobilinogen (Auto) 0.2 mg/dL 03/21/24 15:45 Leukocyte Esterase (Auto) 0 Leena/uL 03/21/24 15:45 Assessment & Plan Assessment & Plan (1) Urinary urgency: Code(s): R39.15 - Urgency of urination Category: Medical Orders: Orders AMB Urinalysis Automated Today Z13.9 - Encounter for screening, unspecified Medications: New fesoterodine ER 8 mg PO DAILY 30 days 30 tabs 1RF R39.15 - Urgency of urination Coding Diagnoses Urinary urgency R39.15 CPT Codes Post Residual Void - PVR CPT Code: 29902-Ytzf Void Residual by ultrasound ([id number])
--- OUTSIDE RECORDS SUMMARY | 2024-03-27 20:58 | XMS_ITS ---
Author Organization [facility] Address [address] [place] [address] Care Team Providers Care Water Server Name Role Phone Danny BENSON, Osorio Primary Care Provider Unavailab Jono Arana Jr Unavailable [phone] REASON FOR VISIT can pt resume plavix and aspirin Encounters Encounter Location Date Provider Diagnosis [facility] [address] [place] [address] 10/18/2023 Jono Lay Jr PLAN OF TREATMENT No Information
--- OUTSIDE RECORDS SUMMARY | 2024-03-27 20:58 | XMS_ITS ---
Author Organization [facility] Address [address] [place] [address] Care Team Providers Care Air Cargo Agent Name Role Phone Danny BENSON, Osorio Primary Care Provider Unavailab Jono Arana Jr Unavailable [phone] REASON FOR VISIT screening Encounters Encounter Location Date Provider Diagnosis [facility] Outpatient [address] [place] [id number] 10/18/2023 Jono Lay Jr Encounter for screening colonoscopy Z12.11 and Personal history of colonic polyps Z86.010 ASSESSMENTS Encounter Date Diagnosis Assessment Notes Treatment Notes Treatment Clinical Notes 10/18/2023 Encounter for screening colonoscopy (ICD-10 - Z12.11) 10/18/2023 Personal history of colonic polyps (ICD-10 - Z86.010) PLAN OF TREATMENT No Information
--- OUTSIDE RECORDS SUMMARY | 2024-03-27 20:58 | XMS_ITS ---
Author Organization [facility] Address [address] [place] [address] Care Team Providers Care Track Repair Worker Name Role Phone Danny BENSON, Osorio Primary Care Provider Unavailab Jono Arana Jr Unavailable REASON FOR VISIT requesting CT results done at [facility]/ update. been unable to get CT Encounters Encounter Location Date Provider Diagnosis [facility] [address] [place] [id number] 11/08/2023 Jono Lay Jr PLAN OF TREATMENT No Information
--- OUTSIDE RECORDS SUMMARY | 2024-03-27 20:59 | XMS_ITS | Continuity of Care Document ---
Author Name [facility] Organization [facility] Care Team Providers Care Residence Life Coordinator Name Role Phone [facility] Unavailable Unavailable Problems Combined list of problems from Department of Defense and Veterans Affairs facilities. It does not include entries that were removed or entered in error. Problem Status Onset Date Problem Type Date of Resolution Comments Source Dermatitis or Eczema * (ICD-9-CM 692.9) Active Condition [facility] Hyperlipidemia * (ICD-9-CM 272.4) Active Condition [facility] Hypertension * (ICD-9-CM 401.9) Active Condition [facility] [place] [facility] Immunizations Combined list of available immunizations from the Department of Defense and Veterans Affairs facilities. Immunization Series Date Given Administered By Site Reaction Lot Number CVX Code Drug Senior Military Analyst Status Comments Source FLU,3 YRS (HISTORICAL) 2007 88 complet ed [facility] Social History Combined list of available smoking, tobacco, and other social history from Department of Defense and Veterans Affairs facilities. Social History Type Response Date Comment Source Tobacco smoking status NCIS QUIT TOBACCO USE 1-7 YEARS AGO 09/13/2008 [facility] History of tobacco use QUIT TOBACCO USE 1-7 YEARS AGO 09/13/2008 Quit smoking about 5-6 years ago. 1 1/2- 2 PPD x 30 years [facility]
--- OUTSIDE RECORDS SUMMARY | 2024-03-27 20:59 | XMS_ITS | Patient Health Record ---
Author Organization [facility] Address [address] [place] [address] Care Team Providers Care Inspector Eyeglass Name Role Phone Danny BENSON, Osorio Primary Care Provider Unavailab Jono Arana Jr Unavailable ALLERGIES No Known Allergies RESULTS Component Value Reference Range Notes CT colonography Reviewed date:11/15/2023 04:36:56 PM Interpretation: Performing Lab: Notes/Report: [facility] [address] [place] [address] Scan Report Signed Patient: Yoshi Rinaldi MR#: [id number] 1446 : 1950 Acct:[id number] Age/Sex: 73 / M ADM Date: 10/18/23 Loc: .[facility] Attending Dr: Jono Lay MD Ordering Physician: Jono Lay MD Date of Service: 10/18/23 Procedure(s): CT colonography Accession Number(s): [id number] cc: Jono Lay MD; Osorio Delgado MD EXAMINATION: CT COLONOGRAPHY CLINICAL INFORMATION: Incomplete colonoscopy. COMPARISON: None available. TECHNIQUE: Bowel preparation: There is some retained fecal residue. Stool tagging with Gastrografin and barium: Stool tagging was not used. Colonic distention: CO2 mechanical insufflator used via enema tube with incomplete distention. Acquisition: Low dose imaging targeted to colonic was performed in the supine and prone positions. Procedure: No immediate complication reported. Review: The acquired images were reviewed in axial, coronal and sagittal planes. Additional 3-D fly through images were reviewed at an independent workstation. This CT examination was performed using dose optimization techniques as appropriate, variously including the following: *Automated exposure control *Adjustment of mA and/or kV according to patient size (this includes techniques or standardized protocols for targeted exams where dose is matched to indication/reason for exam; i.e. extremities or head) *Use of iterative reconstruction technique DLP: 784 mGy-cm FINDINGS: Colonic findings: The colon is tortuous. The colon is not fully distended. There are colonic diverticula with muscular wall thickening. There is no large colonic mass or large polyp demonstrated. Non-colonic findings: Multiple varying sized renal cysts. Due to the patient habitus and low dose technique these are not fully characterized but there is no convincing solid mass. These do not require any specific imaging follow-up. There has been abdominal wall repair. I suspect the prone images are incorrectly annotated right versus left. Some nonspecific chronic changes in the visualized lower lungs. CT/CT colonography IMPRESSION: Limited study. No large colonic mass or polyp demonstrated Dictated By: Floyd Amaral MD Signed By: <Electronically signed by Floyd Amaral MD in OV> 11/15/23 0641 DD/ 1322 TD/TT: Abrasive Mixer: BETTE REASON FOR REFERRAL No Information MEDICATIONS Medication SIG (Take, Route, Frequency, Duration) Notes Start Date End Date Status MiraLax (colon prep) 17 GM/SCOOP mixed with Gatorade or Crystal Light Orally begin at 5:00 p.m. the day before the procedure for 1 day 09/29/2023 Active Clopidogrel Bisulfate 75 MG Oral for 90 Active Rosuvastatin Calcium 40 MG 1 tablet Oral ly Once a day Active amLODIPine Besylate 5 MG Oral for 90 Active Zinc Active Isosorbide Mononitrate ER 30 MG Oral for 90 Active Vitamin C Active Escitalopram Oxalate 20 MG Oral for 90 Active Vitamin D3 Active Fenofibrate 160 MG Oral for 90 Active Gabapentin 600 MG Oral for 90 Active Magnesium 250 MG 1 tablet with a meal Orally Once a day for 30 day(s) Active traZODone HCl 100 MG Oral for 90 Active Aspir-81 81mg Active Propranolol HCl 60 MG Oral for 90 Active clonazePAM 1 MG Oral for 30 Ac tive Metoprolol Tartrate 50 MG Oral for 90 Active Omeprazole 40 MG 1 capsule 30 minutes before morning meal Orally Once a day for 30 day(s) Active LORazepam 1 MG Oral for 30 Act mariam Nitroglycerin Active IMMUNIZATIONS Vaccine Route Administration Date Status Comme nts Influenza Unknown 02/16/2017 Administered Influenza Unknown 01/16/2022 Administered SOCIAL HISTORY Sex Assigned At : Social History Observation Description Sex Assigned At Unknown PROBLEMS Problem Type ICD Code Onset Dates Problem Status W/U Status Risk SNOMED Code Notes Problem Colon cancer screening (Z12.11) Active confirmed 718410175 Problem Personal history of colonic polyps (Z86.010) Active confirmed 319879692 Problem Gastroesophageal reflux disease (K21.9) Active confirmed Gastroesophagea l reflux disease (492856445) Problem Gastroesophageal reflux disease without esophagitis (K21.9) Active confirmed 677134891 Problem Long-term use of aspirin therapy (Z79.82) Active confirmed 297645067 Problem Constipation, unspecified constipation type (K59.00) Active confirmed 17832530 VITAL SIGNS Blood pressure diastolic 00 mm Hg 09/29/2023 Height 71.5 in 09/29/2023 Blood pressure systolic 000 mm Hg 09/29/2023 Weight 316 lbs 09/29/2023 BMI 43.45 kg/m2 09/29/2023 Encounters Encounter Location Date Provider Diagnosis [facility] Out[place] [address] [place] [phone] 10/11/2023 Jono Lay Jr [facility] Out[place] [address] [place] [address] [id number] 10/18/2023 Jono Lay Jr Encounter for screening colonoscopy Z12.11 and Personal history of colonic polyps Z86.010 [facility] [address] [place] [phone] 09/29/2023 Jono Lay Jr Colon cancer screening Z12.11 ; Long-term use of aspirin therapy Z79.82 and Personal history of colonic polyps Z86.010 [facility] [address] [place] [phone] 10/18/2023 Jono Lay Jr [facility] [address] [place] [phone] 11/08/2023 Jono Lay Jr ASSESSMENTS Encounter Date Diagnosis Assessment Notes Treatment Notes Treatment Clinical Notes 10/18/2023 Encounter for screening colonoscopy (ICD-10 - Z12.11) 10/18/2023 Personal history of colonic polyps (ICD-10 - Z86.010) 09/29/2023 Colon cancer screening (ICD-10 - Z12.11) With standard adult colonoscope 09/29/2023 Long-term use of aspirin therapy (ICD-10 - Z79.82) 09/29/2023 Personal history of colonic polyps (ICD-10 - Z86.010) PLAN OF TREATMENT Future Test Test Name Order Date COLONOSCOPY 09/16/2011 UPPER GI ENDOSCOPY 09/29/2017 COLONOSCOPY 09/29/2017 UPPER GI ENDOSCOPY 05/20/2022 COLONOSCOPY 05/20/2022 COLONOSCOPY 09/29/2023 Insurance Providers Payer Name Payer Address Payer Phone Subscriber Number Group Number Insured Name Patient Relationship to Insured Coverage Start Date Coverage End Date MEDICARE OF [place] [address] [place] [address] [id number] YOSHI RINALDI Self - patient is the insured MEDEX ATTN CLAIMS [address] [place] [address] [id number] YOSHI RINALDI Self - patient is the insured MEDICAL (GENERAL) HISTORY Medical History History ICD Code Hyperlipidemia hypertension Gastroesophageal reflux dise ase, EGD 12/03 no H. pylori or Chatterjee's esophagus. Allergies Acne Anxiety Colonoscopy 07/08, multiple p olyps, poor prep, incomplete examination, one year followup with 2 day prep. obstructive sleep apnea, CPAP COPD cardiac stent Surgical History Surgery Date(Month/Year) Abdominal wall hernia repair with mesh Ulnar nerve repair Left right knee surgery kidney stones removed cardiac stent 2020
== END 2024-03-21 16:20 | disposition home or self-care (01) ==
PROVIDERS: PCP Family Medicine; Visit Provider Urology
DX: Z13.9 Encounter for screening, unspecified (principal)

== ENCOUNTER → 2024-03-21 15:22 | Outpatient (BNVA) | payer MEDICARE, SELFPAY | PROVIDERS: PCP Family Medicine; Visit Provider Urology | DX: R39.15 Urgency of urination (principal) | CPT/HCPCS: 51798; 81003; 99202 ==

== ENCOUNTER 2024-03-26 14:35 | Outpatient (AMB) | payer MEDICARE, SELFPAY ==
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
--- OUTSIDE RECORDS SUMMARY | 2024-03-28 16:11 | XMS_ITS ---
Author Organization [facility] Address [address] [place] [address] Care Team Providers Care Coremaker Supervisor Name Role Phone Danny BENSON, Osorio Primary Care Provider Unavailab Jono Arana Jr Unavailable REASON FOR VISIT requesting CT [place] [facility] update. been unable to get CT Encounters Encounter Location Date Provider Diagnosis [facility] [address] [place] [phone] 11/08/2023 Jono Lay Jr PLAN OF TREATMENT No Information
--- OUTSIDE RECORDS SUMMARY | 2024-03-28 16:11 | XMS_ITS ---
Author Organization [facility] Address [address] [place] [address] Care Team Providers Care Mangle Feeder Name Role Phone Danny BENSON, Osorio Primary Care Provider Unavailab Jono Arana Jr Unavailable REASON FOR VISIT screening Encounters Encounter Location Date Provider Diagnosis [facility] [facility] Out[place] [address] [place] [phone] 10/18/2023 Jono Lay Jr Encounter for screening colonoscopy Z12.11 and Personal history of colonic polyps Z86.010 ASSESSMENTS Encounter Date Diagnosis Assessment Notes Treatment Notes Treatment Clinical Notes 10/18/2023 Encounter for screening colonoscopy (ICD-10 - Z12.11) 10/18/2023 Personal history of colonic polyps (ICD-10 - Z86.010) PLAN OF TREATMENT No Information
--- OUTSIDE RECORDS SUMMARY | 2024-03-28 16:11 | XMS_ITS ---
Author Organization [facility] Address [address] [place] [address] Care Team Providers Care Nuclear Reactor Operator Name Role Phone Danny BENSON, Osorio Primary Care Provider Unavailab Jono Arana Jr Unavailable [phone] REASON FOR VISIT can pt resume plavix and aspirin Encounters Encounter Location Date Provider Diagnosis [facility] [address] [place] [address] 10/18/2023 Jono Lay Jr PLAN OF TREATMENT No Information
--- OUTSIDE RECORDS SUMMARY | 2024-03-28 16:12 | XMS_ITS | Continuity of Care Document ---
Author Name [facility] Organization [facility] Care Team Providers Care Pay Clerk Name Role Phone [facility] Unavailable Unavailable Problems Combined list of problems from Department of Defense and Veterans Affairs facilities. It does not include entries that were removed or entered in error. Problem Status Onset Date Problem Type Date of Resolution Comments Source Dermatitis or Eczema * (ICD-9-CM 692.9) Active Condition [facility] Hyperlipidemia * (ICD-9-CM 272.4) Active Condition [facility] Hypertension * (ICD-9-CM 401.9) Active Condition [facility] [place] [facility] Immunizations Combined list of available immunizations from the Department of Defense and Veterans Affairs facilities. Immunization Series Date Given Administered By Site Reaction Lot Number CVX Code Drug Market Basket Maker Status Comments Source FLU,3 YRS (HISTORICAL) 2007 88 complet ed [facility] [place] [facility] Social History Combined list of available smoking, tobacco, and other social history from Department of Defense and Veterans Affairs facilities. Social History Type Response Date Comment Source Tobacco smoking status NDIS QUIT TOBACCO USE 1-7 YEARS AGO 09/13/2008 [facility] History of tobacco use QUIT TOBACCO USE 1-7 YEARS AGO 09/13/2008 Quit smoking about 5-6 years ago. 1 1/2- 2 PPD x 30 years [facility]
--- OUTSIDE RECORDS SUMMARY | 2024-03-28 16:12 | XMS_ITS | Patient Health Record ---
Author Organization [facility] Address [address] [place] [address] Care Team Providers Care Mill Work Name Role Phone Danny BENSON, Osorio Primary Care Provider Unavailab Jono Arana Jr Unavailable ALLERGIES No Known Allergies RESULTS Component Value Reference Range Notes CT colonography Reviewed date:11/15/2023 04:36:56 PM Interpretation: Performing Lab: Notes/Report: [facility] [address] [place] [address] Scan Report Signed Patient: Yoshi Rinaldi MR#: [id number] 1446 : 1950 Acct:[id number] Age/Sex: 73 / M ADM Date: 10/18/23 Loc: .[facility] Attending Dr: Jono Lay MD Ordering Physician: Jono Lay MD Date of Service: 10/18/23 Procedure(s): CT colonography Accession Number(s): [id number] cc: Jono Lay MD; Osorio Delgado MD [...] in OV> 11/15/23 0641 DD/ 1322 TD/TT: Insole Beveler: BETTE REASON FOR REFERRAL No Information MEDICATIONS [...] Problem Colon cancer screening (Z12.11) Active confirmed 007589405 Problem Personal history of colonic polyps (Z86.010) Active confirmed 051800640 Problem Gastroesophageal reflux disease (K21.9) Active confirmed Gastroesophagea l reflux disease (718456263) Problem Gastroesophageal reflux disease without esophagitis (K21.9) Active confirmed 825106315 Problem Long-term use of aspirin therapy (Z79.82) Active confirmed 649273059 Problem Constipation, unspecified constipation type (K59.00) Active confirmed 30326449 VITAL SIGNS Blood pressure diastolic 00 mm Hg 09/29/2023 Height 71.5 in 09/29/2023 Blood pressure systolic 000 mm Hg 09/29/2023 Weight 316 lbs 09/29/2023 BMI 43.45 kg/m2 09/29/2023 Encounters Encounter Location Date Provider Diagnosis [facility] Out[facility] [address] [place] [id number] 10/11/2023 Jono Lay Jr [facility] Outpatient [address] [place] [id number] 10/18/2023 Jono Lay Jr Encounter for screening colonoscopy Z12.11 and Personal history of colonic polyps Z86.010 [facility] [address] [place] [phone] 09/29/2023 Jono Lay Jr Colon cancer screening Z12.11 ; Long-term use of aspirin therapy Z79.82 and Personal history of colonic polyps Z86.010 [facility] [address] [place] [phone] 10/18/2023 Jono Lay Jr [facility] [address] [place] [phone] 11/08/2023 Jono Lay Jr ASSESSMENTS Encounter Date [...] OF [place] [address] [place] [address] [phone] [id number] YOSHI RINALDI Self - patient is the insured [employer] ATTN CLAIMS [address] [place] [address] [id number] YOSHI RINALDI Self - patient is the [...]
== END 2024-03-26 17:24 | disposition home or self-care (01) ==
LOC: HO.HOP 14:35
PROVIDERS: PCP Family Medicine; Visit Provider Psychiatry & Neurology Psychiatry
DX: F32.89 Other specified depressive episodes (principal)
CPT/HCPCS: 90833; 99213

== ENCOUNTER → 2024-03-26 14:35 | Outpatient (BNVA) | payer MEDICARE, SELFPAY | PROVIDERS: PCP Family Medicine; Visit Provider Psychiatry & Neurology Psychiatry | DX: F32.A Depression, unspecified (principal); Z79.899 Other long term (current) drug therapy; Z79.01 Long term (current) use of anticoagulants | CPT/HCPCS: 99212 ==

== ENCOUNTER 2024-05-15 16:38 | Outpatient (REF) | payer MEDICARE, SELFPAY ==
--- OUTSIDE RECORDS SUMMARY | 2024-05-15 16:41 | XMS_ITS | Continuity of Care Document ---
Author Name [facility] Organization [facility] Care Team Providers Care Photographic Lithographer Name Role Phone [facility] Unavailable Unavailable Problems Combined list of problems from Department of Defense and Veterans Affairs facilities. It does not include entries that were removed or entered in error. Problem Status Onset Date Problem Type Date of Resolution Comments Source Dermatitis or Eczema * (ICD-9-CM 692.9) Active Condition [facility] Hyperlipidemia * (ICD-9-CM 272.4) Active Condition [facility] Hypertension * (ICD-9-CM 401.9) Active Condition [facility] [place] [facility] Immunizations Combined list of available immunizations from the Department of Defense and Veterans Affairs facilities. Immunization Series Date Given Administered By Site Reaction Lot Number CVX Code Drug Load Tallier Status Comments Source FLU,3 YRS (HISTORICAL) 2007 88 complet ed [facility] [place] [facility] Social History Combined list of available smoking, tobacco, and other social history from Department of Defense and Veterans Affairs facilities. Social History Type Response Date Comment Source Tobacco smoking status CAIS QUIT TOBACCO USE 1-7 YEARS AGO 09/13/2008 [facility] History of tobacco use QUIT TOBACCO USE 1-7 YEARS AGO 09/13/2008 Quit smoking about 5-6 years ago. 1 1/2- 2 PPD x 30 years [facility]
--- OUTSIDE RECORDS SUMMARY | 2024-05-15 16:41 | XMS_ITS ---
Author Organization [facility] Address [address] [place] [address] Care Team Providers Care Drying Machine Back Tender Name Role Phone Danny BENSON, Osorio Primary Care Provider Unavailab Jono Arana Jr Unavailable [phone] REASON FOR VISIT screening Encounters Encounter Location Date Provider Diagnosis [facility] Outpatient [address] [place] [phone] 10/18/2023 Jono Lay Jr Encounter for screening colonoscopy Z12.11 and Personal history of colonic polyps Z86.010 ASSESSMENTS Encounter Date Diagnosis Assessment Notes Treatment Notes Treatment Clinical Notes 10/18/2023 Encounter for screening colonoscopy (ICD-10 - Z12.11) 10/18/2023 Personal history of colonic polyps (ICD-10 - Z86.010) PLAN OF TREATMENT No Information
--- OUTSIDE RECORDS SUMMARY | 2024-05-15 16:42 | XMS_ITS ---
Author Organization [facility] Address [address] [place] [address] Care Team Providers Care Sweet Dough Mixer Name Role Phone Danny BENSON, Osorio Primary Care Provider Unavailab Jono Arana Jr Unavailable [phone] REASON FOR VISIT can pt resume plavix and aspirin Encounters Encounter Location Date Provider Diagnosis [facility] [address] [place] [address] 10/18/2023 Jono Lay Jr PLAN OF TREATMENT No Information
--- OUTSIDE RECORDS SUMMARY | 2024-05-15 16:42 | XMS_ITS | Patient Health Record ---
Author Organization [facility] Address [address] [place] [address] Care Team Providers Care Answering Service Operator Name Role Phone Danny BENSON, Osorio Primary Care Provider Unavailab Jono Arana Jr Unavailable ALLERGIES No Known Allergies RESULTS Component Value Reference Range Notes CT colonography Reviewed date:11/15/2023 04:36:56 PM Interpretation: Performing Lab: Notes/Report: [facility] [address] [place] [address] Scan Report Signed Patient: Yoshi Rinaldi MR#: [id number] 1446 : 1950 Acct:[id number] Age/Sex: 73 / M ADM Date: 10/18/23 Loc: [facility] Attending Dr: Jono Lay MD Ordering Physician: Jono Lay MD Date of Service: 10/18/23 Procedure(s): CT colonography Accession Number(s): [id number] cc: Jono Lay MD; Osorio Delgado MD [...] in OV> 11/15/23 0641 DD/ 1322 TD/TT: Strip Mine Supervisor: BETTE REASON FOR REFERRAL No Information MEDICATIONS [...] Problem Colon cancer screening (Z12.11) Active confirmed 818106985 Problem Personal history of colonic polyps (Z86.010) Active confirmed 987473295 Problem Gastroesophageal reflux disease (K21.9) Active confirmed Gastroesophagea l reflux disease (442546124) Problem Gastroesophageal reflux disease without esophagitis (K21.9) Active confirmed 330008308 Problem Long-term use of aspirin therapy (Z79.82) Active confirmed 062883994 Problem Constipation, unspecified constipation type (K59.00) Active confirmed 90911444 VITAL SIGNS Blood pressure diastolic 00 mm Hg 09/29/2023 Height 71.5 in 09/29/2023 Blood pressure systolic 000 mm Hg 09/29/2023 Weight 316 lbs 09/29/2023 BMI 43.45 kg/m2 09/29/2023 Encounters Encounter Location Date Provider Diagnosis [facility] [place] [address] [place] [phone] 10/11/2023 Jono Lay Jr [facility] [place] [address] [place] [address] [phone] 10/18/2023 Jono Lay Jr Encounter for screening colonoscopy Z12.11 and Personal history of colonic polyps Z86.010 [facility] [address] [place] [phone] 09/29/2023 Jono Lay Jr Colon cancer screening Z12.11 ; Long-term use of aspirin therapy Z79.82 and Personal history of colonic polyps Z86.010 [facility] [address] [place] [phone] 10/18/2023 Jono Lay Jr [facility] [address] [place] [phone] 11/08/2023 Jono Lay Jr ASSESSMENTS Encounter Date [...] OF [place] [address] [place] [address] [id number] YOSHI RINALDI Self - patient is the insured [employer] ATTN CLAIMS [address] [place] [address] [phone] [id number] YOSHI RINALDI Self - patient is the [...]
[2024-05-15 17:45] LABS: Alanine Aminotransferase 30 U/L (0-40); Anion Gap 12 (12-20); Aspartate Amino Transferase 36 U/L (5-37); Blood Urea Nitrogen 19 mg/dL (9-16); Carbon Dioxide 24 mmol/L (22-29); Chloride 108 mmol/L (96-108); Estimated Glomerular Filt Rate > 60; Potassium 4.4 mmol/L (3.3-5.1); Sodium 140 mmol/L (135-145)
== END 2024-05-15 16:39 | disposition home or self-care (01) ==
LOC: HO.LAB 16:38
PROVIDERS: PCP Family Medicine; Visit Provider Family Medicine
DX: I10 Essential (primary) hypertension (principal); E78.00 Pure hypercholesterolemia, unspecified
CPT/HCPCS: 36415; 80051; 82550; 82565; 84450; 84460; 84520

== ENCOUNTER → 2024-05-23 14:55 | Outpatient (BNVA) | payer MEDICARE, SELFPAY | PROVIDERS: PCP Family Medicine; Visit Provider Urology | DX: R39.15 Urgency of urination (principal) | CPT/HCPCS: 52000; 81003; 99212 ==

== ENCOUNTER 2024-06-18 15:52 | Outpatient (AMB) | payer MEDICARE, SELFPAY ==
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
--- OUTSIDE RECORDS SUMMARY | 2024-06-18 18:37 | XMS_ITS | Patient Health Record ---
Author Organization [facility] Address [address] [place] [address] Care Team Providers Care Sulfur Chloride Operator Name Role Phone Danny BENSON, Osorio Primary Care Provider Unavailab Jono Arana Jr Unavailable ALLERGIES No Known Allergies RESULTS Component Value Reference Range Notes CT colonography Reviewed date:11/15/2023 04:36:56 PM Interpretation: Performing Lab: Notes/Report: [facility] [address] [place] [id number] Scan Report Signed Patient: Yoshi Rinaldi MR#: [id number] : 1950 Acct:[id number] Age/Sex: 73 / M ADM Date: 10/18/23 Loc: .[facility] Attending Dr: Jono Lay MD Ordering Physician: Joon Lay MD Date of Service: 10/18/23 Procedure(s): CT colonography Accession Number(s): [id number] cc: Jono Lay MD; Osorio Delgado MD [...] in OV> 11/15/23 0641 DD/ 1322 TD/TT: Paradichlorobenzene Machine Operator: BETTE REASON FOR REFERRAL No Information MEDICATIONS [...] Problem Colon cancer screening (Z12.11) Active confirmed 880806300 Problem Personal history of colonic polyps (Z86.010) Active confirmed 725043283 Problem Gastroesophageal reflux disease (K21.9) Active confirmed Gastroesophagea l reflux disease (202333870) Problem Gastroesophageal reflux disease without esophagitis (K21.9) Active confirmed 495348849 Problem Long-term use of aspirin therapy (Z79.82) Active confirmed 821347548 Problem Constipation, unspecified constipation type (K59.00) Active confirmed 97718830 VITAL SIGNS Blood pressure diastolic 00 mm Hg 09/29/2023 Height 71.5 in 09/29/2023 Blood pressure systolic 000 mm Hg 09/29/2023 Weight 316 lbs 09/29/2023 BMI 43.45 kg/m2 09/29/2023 Encounters Encounter Location Date Provider Diagnosis [facility] Outpatient [address] [place] [address] [id number] 10/11/2023 Jono Lay Jr [facility] Outpatient [address] [place] [address] [id number] 10/18/2023 Jono Lay Jr Encounter for screening colonoscopy Z12.11 and Personal history of colonic polyps Z86.010 [facility] [address] [place] [phone] 09/29/2023 Jono Lay Jr Colon cancer screening Z12.11 ; Long-term use of aspirin therapy Z79.82 and Personal history of colonic polyps Z86.010 [facility] [address] [place] [id number] 10/18/2023 Jono Lay Jr [facility] [address] [place] [phone] 11/08/2023 Jono Lay Jr ASSESSMENTS Encounter Date [...] OF [place] [address] [place] [address] [id number] YOSHI RINALDI Self - patient is the insured [employer] ATT[employer] CLAIMS [address] [place] [phone] [id number] YOSHI RINALDI Self - patient is the [...]
--- OUTSIDE RECORDS SUMMARY | 2024-06-18 18:37 | XMS_ITS ---
Author Organization [facility] Address [address] [place] [address] Care Team Providers Care Foundry Worker Name Role Phone Danny BENSON, Osorio Primary Care Provider Unavailab Jono Arana Jr Unavailable [phone] REASON FOR VISIT screening Encounters Encounter Location Date Provider Diagnosis [facility] Outpatient [address] [place] [id number] 10/18/2023 Jono Lay Jr Encounter for screening colonoscopy Z12.11 and Personal history of colonic polyps Z86.010 ASSESSMENTS Encounter Date Diagnosis Assessment Notes Treatment Notes Treatment Clinical Notes 10/18/2023 Encounter for screening colonoscopy (ICD-10 - Z12.11) 10/18/2023 Personal history of colonic polyps (ICD-10 - Z86.010) PLAN OF TREATMENT No Information
--- OUTSIDE RECORDS SUMMARY | 2024-06-18 18:37 | XMS_ITS ---
Author Organization [facility] Address [address] [place] [address] Care Team Providers Care Space Physicist Name Role Phone Danny BENSON, Osorio Primary Care Provider Unavailab Jono Arana Jr Unavailable REASON FOR VISIT requesting CT results done at [facility]/ update. been unable to get CT Encounters Encounter Location Date Provider Diagnosis [facility] [address] [place] [phone] 11/08/2023 Jono Lay Jr PLAN OF TREATMENT No Information
--- OUTSIDE RECORDS SUMMARY | 2024-06-18 18:37 | XMS_ITS ---
Author Organization [facility] Address [address] [place] [address] Care Team Providers Care Casing Builder Name Role Phone Danny BENSON, Osorio Primary Care Provider Unavailab Jono Arana Jr Unavailable REASON FOR VISIT can pt resume plavix and aspirin Encounters Encounter Location Date Provider Diagnosis [facility] [address] [place] [address] 10/18/2023 Jono Lay Jr PLAN OF TREATMENT No Information
--- OUTSIDE RECORDS SUMMARY | 2024-06-18 18:37 | XMS_ITS | Continuity of Care Document ---
Author Name [facility] Organization [facility] Care Team Providers Care Riding Teacher Name Role Phone [facility] Unavailable Unavailable Problems Combined list of problems from Department of Defense and Veterans Affairs facilities. It does not include entries that were removed or entered in error. Problem Status Onset Date Problem Type Date of Resolution Comments Source Dermatitis or Eczema * (ICD-9-CM 692.9) Active Condition [facility] Hyperlipidemia * (ICD-9-CM 272.4) Active Condition [facility] Hypertension * (ICD-9-CM 401.9) Active Condition [facility] Immunizations Combined list of available immunizations from the Department of Defense and Veterans Affairs facilities. Immunization Series Date Given Administered By Site Reaction Lot Number CVX Code Drug Medicare Insurance Specialist Status Comments Source FLU,3 YRS (HISTORICAL) 2007 88 complet ed [facility] Social History Combined list of available smoking, tobacco, and other social history from Department of Defense and Veterans Affairs facilities. Social History Type Response Date Comment Source Tobacco smoking status PRIS QUIT TOBACCO USE 1-7 YEARS AGO 09/13/2008 [facility] History of tobacco use QUIT TOBACCO USE 1-7 YEARS AGO 09/13/2008 Quit smoking about 5-6 years ago. 1 1/2- 2 PPD x 30 years [facility]
== END 2024-06-18 16:42 | disposition home or self-care (01) ==
LOC: HO.HOP 15:52
PROVIDERS: PCP Family Medicine; Visit Provider Psychiatry & Neurology Psychiatry
DX: F41.1 Generalized anxiety disorder (principal); F43.10 Post-traumatic stress disorder, unspecified
CPT/HCPCS: 99214

== ENCOUNTER → 2024-06-18 15:52 | Outpatient (BNVA) | payer MEDICARE, SELFPAY | PROVIDERS: PCP Family Medicine; Visit Provider Psychiatry & Neurology Psychiatry | DX: F41.1 Generalized anxiety disorder (principal); F43.10 Post-traumatic stress disorder, unspecified | CPT/HCPCS: 99212 ==

== ENCOUNTER 2024-10-12 10:57 | Outpatient (REF) | payer MEDICARE, SELFPAY ==
--- OUTSIDE RECORDS SUMMARY | 2024-10-12 12:07 | XMS_ITS | Patient Health Record ---
Author Organization [facility] [place] Address [address] [place] [address] Care Team Providers Care Metal Machine Operator Name Role Phone Osorio Delgado MD Primary Care Provider Shmuel Villarreal Unavailable [phone] Reason For Referral No Information Medications Medication SIG (Take, Route, Frequency, Duration) Notes Start Date End Date Status amLODIPine Besylate 5 MG 1 1/2 tablet Or ally Once a day Active Aspirin 81 MG 1 tablet Orally Once a day; Duration: 30 day(s) Active Night Splint AFO - L1930 as directed 03/28/2019 Active Omeprazole 20 MG 1 tablet 30 minutes before morning meal Orally Once a day; Duration: 30 day(s) Active Metoprolol Succinate 50 MG 1 capsule Ora lly twice a day Active Primidone 50 MG 3 at bed Orally Active Fenofibrate 160 MG 1 tablet with food O rally Once a day; Duration: 30 day(s) Active traZODone HCl 100 MG 1/2 at bedtime Oral ly Once a day Active Escitalopram Oxalate 20 MG 1 tablet Oral ly Once a day at bed Active clonazePAM 2 MG 1 tablet Orally 1/2 in morning and 1 at bed Active Advair Diskus 100-50 MCG/DOSE 1 puff Inhalation Twice a day Active Ketoconazole 2 % 5 ml Externally Active Gabapentin 600 MG 1 tablet Orally Once a day at bed Active Wal-itin 10 MG 1 tablet Orally Once a day; Duration: 30 day(s) Active Social History Tobacco Use: Social History Observation Description Date Details (start date - stop date) Former Smoker NA - NA Tobacco Use/Smoking Question Answer Notes Are you a: former smoker Alcohol Screen Question Answer Notes Did you have a drink containing alcohol in the p ast year? No Points 0 Interpretation Negative Tobacco use other than smoking: Question Answer Notes Are you an other tobacco user? No Problems Problem Type SNOMED Code ICD Code Onset Dates Problem Status W/U Status Risk Notes Problem Acquired hallux rigidus (0190032) Hallux rigidus, left foot (M20.22) Active confirmed Problem Hallux rigidus, right foot (M20.21) Active confirmed Plan Of Treatment Pending Test Test Name Order Date X ray : Foot, left 3V 03/28/2019 Insurance Providers Payer Name Payer Address Payer Phone Subscriber Number Group Number Insured Name Patient Relationship to Insured Coverage Start Date Coverage End Date Medicare National Govt Svcs Inc [address] [place] [address] [id number] Yoshi Mackenzie Self - patient is the insured [employer] [address] [place] [address] [phone] [id number] Yoshi Mackenzie Self - patient is the insured Medical (General) History Medical History History ICD Code Anxiety Arthritis Back,Hip,and Knee pain CAD (Cholesterol) Hiatal hernia High blood pressure Reflux ( GERD) Chicken pox Surgical History Surgery Date(Month/Year) hernia knee surgery, right Stent put in 07/05
== END 2024-10-12 10:58 | disposition home or self-care (01) ==
LOC: HO.LAB 10:57
PROVIDERS: PCP Family Medicine; Visit Provider Family Medicine
DX: Z13.89 Encounter for screening for other disorder (principal)

== ENCOUNTER 2024-10-19 11:30 | Emergency (ER) | payer MEDICARE, SELFPAY ==
--- OUTSIDE RECORDS SUMMARY | 2008-09-13 11:00 | XMS_ITS | Continuity of Care Document ---
Author Name [facility] Organization [facility] Care Team Providers Care Service Cleaner Name Role Phone [facility] Unavailable Unavailable Problems Combined list of problems from Department of Defense and Veterans Affairs facilities. It does not include entries that were removed or entered in error. Problem Status Onset Date Problem Type Date of Resolution Comments Source Dermatitis or Eczema * (ICD-9-CM 692.9) Active Condition [facility] Hyperlipidemia * (ICD-9-CM 272.4) Active Condition [facility] Hypertension * (ICD-9-CM 401.9) Active Condition [facility] [place] [facility] Immunizations Combined list of available immunizations from the Department of Defense and Veterans Affairs facilities. Immunization Series Date Given Administered By Site Reaction Lot Number CVX Code Drug Event Attendant Status Comments Source FLU,3 YRS (HISTORICAL) 2007 88 complet ed [place] [facility] [place] [facility] Social History Combined list of available smoking, tobacco, and other social history from Department of Defense and Veterans Affairs facilities. Social History Type Response Date Comment Source Tobacco smoking status SDIS QUIT TOBACCO USE 1-7 YEARS AGO 09/13/2008 [facility] [place] [facility] History of tobacco use QUIT TOBACCO USE 1-7 YEARS AGO 09/13/2008 Quit smoking about 5-6 years ago. 1 1/2- 2 PPD x 30 years [facility]
--- OUTSIDE RECORDS SUMMARY | 2023-10-18 10:10 | XMS_ITS ---
Author Organization [facility] Address [address] [place] [address] Care Team Providers Care Lead Sql Developer Name Role Phone Danny BENSON, Osorio Primary Care Provider Jono Negron Jr Unavailable REASON FOR VISIT screening Encounters Encounter Location Date Provider Diagnosis [facility] Outpatient [address] [place], [place] [phone] 10/18/2023 Jono Lay Jr Encounter for screening colonoscopy Z12.11 and Personal history of colonic polyps Z86.010 Assessments Encounter Date Diagnosis (ICD Code) Assessment Notes Treatment Notes Treatment Clinical Notes Section Notes 10/18/2023 Encounter for screening colonoscopy (ICD-10 - Z12.11) 10/18/2023 Personal history of colonic polyps (ICD-10 - Z86.010) Plan Of Treatment No Information Progress Notes * NIMCO, JAK ADOB: [birth year] (74 yo M)Acc No.[id number]:10/18/2023 COLON WITH MAC Patient: JAK GUZMÁN Provider: Fritz Lay MD :1950 A ge:73 Y S ex:Male Date:10/18/2023 Address:[address] [place] [address] [id number] Pcp:Osorio Delgado MD Subjective: * Chief Complaints: * 1 . Screening. * Medical History: Objective: * Vitals: Assessment: * Assessment: 1. E ncounter for screening colonoscopy - Z12.11 (Primary) 2 . P ersonal history of colonic polyps - Z86.010 Plan: * Treatment: * Procedure Codes: G 0105 COLOREC CANCR SCR; COLNSCPY HI RISK, 57582 DIAGNOSTIC COLONOSCOPY, Modifiers: 53 , 0529F INTRVL [...] 0 10/18/2023 Generated for Nanci carter/Elo/Rowenaitting on: 10/19/2024 11:47 AM EDT
[2024-10-19] VITALS (8 sets, daily range): BP systolic 74–111; BP diastolic 38–80; PULSE 59–73; RESP 15–18; TEMP 36.2–37; O2SAT 94–95; BMI 50.0
--- NOTE | 2024-10-19 | ECG_ITS ---
Test Reason : dizziness Blood Pressure : */* mmHG Vent. Rate : 56 BPM Atrial Rate : 56 BPM P-R Int : 158 ms QRS Dur : 84 ms QT Int : 444 ms P-R-T Axes : 25 -22 91 degrees QTcB Int : 428 ms Poor data quality, interpretation may be adversely affected Sinus bradycardia Abnormal QRS-T angle, consider primary T wave abnormality Abnormal ECG When compared with ECG of 06-Oct-2019 20:56, Borderline criteria for Inferior infarct are no longer Present T wave inversion less evident in Lateral leads Referred By: Namrata Ramos Electronically Signed By: CAT WALTON MD
--- NOTE | 2024-10-19 11:33 | ED_ITS ---
History of Present Illness General Chief Complaint: Epistaxis Stated Complaint: nose bleed Time Seen by Provider: 10/19/24 11:53 Related Data Home Medications ?Medication ?Instructions ?Recorded ?Confirmed amlodipine 5 mg tablet 5 mg PO DAILY 04/01/2006/18 cholecalciferol (vitamin D3) 25 25 mcg PO DAILY 06/18/24 mcg (1,000 unit) capsule isosorbide mononitrate 30 mg 30 mg PO DAILY 04/01/20 0 06/18/24 tablet,extended release 24 hr omeprazole 40 mg capsule,delayed 40 mg PO BID 03/24/22 06/18/24 release propranolol 60 mg tablet 60 mg PO BID 06/15/22 gabapentin 600 mg tablet 600 mg PO DAILY 09/30/2207/10 cetirizine 10 mg capsule (Zyrtec) 10 mg PO DAILY PRN 0 11/22/23 06/18/24 fenofibrate 160 mg tablet mg PO 12/12/23 06/18/24 Previous Rx's ?Medication ?Instructions ?Recorded nitroglycerin 0.4 mg sublingual 0.4 mg sublingual Q5M PRN chest 11/15/22 tablet pain #30 tabs rosuvastatin 40 mg tablet 40 mg PO DAILY #90 tabs 07/10 clopidogrel 75 mg tablet 75 mg PO DAILY #90 tabs 04/18 07/10 clonazepam 1 mg tablet 1 mg PO TID 30 days #90 tabs 06/18/24 escitalopram oxalate 20 mg tablet 20 mg PO DAILY #90 t abs 06/18/24 primidone 50 mg tablet See Rx Instructions PO .COMP KELLEY 06/18/24 #360 tabs trazodone 100 mg tablet 50 mg (1/2 x 100 mg) PO BEDT LUZ ELENA 90 06/18/24 days #45 tabs fesoterodine 8 mg tablet,extended 8 mg PO DAILY 90 day s #90 tabs 10/12/24 release 24 hr tamsulosin 0.4 mg capsule 0.4 mg PO BEDTIME 90 days #9 0 caps 10/12/24 Allergies Allergy/AdvReac Type Severity Reaction Status Date / Time No Known Allergies (No Known Allergy Verified 10/19/24 11:35 Allergies*) [facility] Past Medical History Medical History Benign essential tremor Post traumatic stress disorder (PTSD) Panic disorder Other and unspecified hyperlipidemia GERD (gastroesophageal reflux disease) Essential hypertension Atherosclerotic cardiovascular disease Surgical History History of surgery on lower extremity Hx of decompression of ulnar nerve History of hernia repair Stented coronary artery History of cardiac catheterization (~06/19/19) Family History Family History Father Stroke Mother No problems noted. Social History Social History Alcohol intake: former Patient Tobacco Use Status: Former Tobacco user Smoked in Last 30 Days: No Use of substances other than those prescribed or required for medical reasons: No Advance Directives: Yes Advance Directives Information Provided: No Advance Directives on File: No Physical Exam 2 Vital Signs: Vital Signs: Last Vital Signs Temp 98.6 F 10/19/24 11:31 Pulse 70 10/19/24 14:27 Resp 16 10/19/24 14:09 BP 100/80 10/19/24 15:54 Pulse Ox 94 10/19/24 14:09 O2 Del Method Room Air 10/19/24 14:09 BMI result Body Mass Index 50.0 Course Course Course Narrative: This is an RME: Additional HPI, ROS, PE not included below will be deferred to primary provider. RME assessment and note performed by: Janae Saleem PA-C This is a 29-tnzq-tga-male, PTSD, GERD, HTN, who presents to the ER with a complaint of episode of epistaxis which started [address] TECHNOLOGIST. He denies any trauma to his nose. He is on a baby aspirin. He reports that he is feeling nauseous which he believes is due to him swallowing his blood. Reporting some lightheadedness, no headache or vision changes. No obvious septal hematoma noted, +actively bleeding from right nare. Placed nare clamp and sent to main ED for further ER eval. Plan: Labs Medications Administered Discontinued Medications Generic Name Dose Route Start Last Admin Trade Name Freq PRN Reason Stop Dose Admin Sodium Chloride 1,000 mls @ 999 mls/hr 10/19/24 13:15 10/19/24 14:26 Ns IV 10/19/24 14:15 Infused .Q1H1M GISELA Infusion Sodium Chloride 1,000 mls @ 999 mls/hr 10/19/24 14:30 10/19/24 15:53 Ns IV 10/19/24 15:30 Infused .Q1H1M GISELA Infusion Sodium Chloride 1,000 mls @ 999 mls/hr 10/19/24 14:45 10/19/24 15:54 Ns IV 10/19/24 15:45 Not Given .Q1H1M GISELA Medical Decision Making Medical Decision Making [facility] Narrative: Had nosebleed from the right nostril. On Plavix. Patient's hemoglobin is proximally baseline. No symptom no bleed while we were observing him in the emergency department. He did have episode of low blood pressure we did give him some fluids. He has no signs of infection he is well-appearing he was sleeping patient's blood pressure recovered he is in no distress will discharge home no blood in the stool that he noticed. Differential Diagnosis Differential Diagnoses: The differential diagnosis associated with the presentation includes Admission/Observation Consideration of admission/observation: Escalation of care including admission/observation considered Lab Data [facility] Lab Attestation statement: I reviewed the patient's lab results. 10/19/24 11:58 10/19/24 11:58 Labs: Lab Results 10/19/24 Range/Units 11:58 WBC 7.4 (4.8-10.8) X10*3/uL RBC 3.88 L (4.60-5.80) X10*6/uL Hgb 12.1 L (14.0-18.0) g/dl Hct 35.0 L (42.0-52.0) % MCV 90.2 (80.0-98.0) fL MCH 31.2 (27.0-33.0) pg MCHC 34.6 (31.0-36.0) g/dl RDW 13.6 (11.0-16.0) % Plt Count 187 (160-400) X10*3/uL MPV 10.0 (9.4-12.4) fL Immature Gran % (Auto) 0.1 (0.0-0.4) % Neut % (Auto) 54.9 (45-73) % Lymph % (Auto) 30.9 (20-40) % Hinds % (Auto) 9.9 (2-11) % Eos % (Auto) 3.7 (0-4) % Baso % (Auto) 0.5 (0-2) % Lymph # (Auto) 2.3 (1.2-4.9) X10*3/uL Hinds # (Auto) 0.7 (0.1-1.2) X10*3/uL Eos # (Auto) 0.3 (0.0-0.4) X10*3/uL Baso # (Auto) 0.0 (0.0-0.2) X10*3/uL Abs Immat Gran (auto) 0.01 (0.00-0.03) X10*3/uL Absolute Neuts (auto) 4.0 (2.0-8.3) x10*3/uL Absolute Nucleated RBC 0.000 (0.0-0.012) X10*3/uL Nucleated RBC % (auto) 0.0 (0.0-0.2) /100WBC Sodium 141 (135-145) mmol/L Potassium 4.2 (3.3-5.1) mmol/L Chloride 111 H (96-108) mmol/L Carbon Dioxide 22 (22-29) mmol/L Anion Gap 12 (12-20) BUN 31 H (9-16) mg/dL Creatinine 1.21 (0.5-1.4) mg/dL Estim Creat Clear Calc 73.7 Estimated GFR 59 Random Glucose 114 (60-115) mg/dL Calcium 8.8 (8.4-10.2) mg/dL Total Bilirubin 0.3 (0.0-1.0) mg/dL AST 26 (5-37) U/L ALT 17 (0-40) U/L Alkaline Phosphatase 39 (39-117) U/L Total Protein 5.9 L (6.5-8.0) g/dL Albumin 3.7 (3.5-5.0) g/dL Social Determinants Patient?s care significantly limited by Social Determinants of Health including: Problems related to primary support group Discharge Plan Discharge Clinical Impression: Anterior epistaxis Instructions: Nosebleed (ED) Prescriptions: No Action rosuvastatin 40 mg tablet 40 mg PO DAILY Qty: 90 3RF clopidogrel 75 mg tablet 75 mg PO DAILY Qty: 90 3RF tamsulosin 0.4 mg capsule 0.4 mg PO BEDTIME 90 Days Qty: 90 1RF fesoterodine 8 mg tablet extended release 24 hr 8 mg PO DAILY 90 Days Qty: 90 1RF cholecalciferol (vitamin D3) 25 mcg (1,000 unit) capsule 25 mcg PO DAILY isosorbide mononitrate 30 mg tablet extended release 24 hr 30 mg PO DAILY amlodipine 5 mg tablet 5 mg PO DAILY nitroglycerin 0.4 mg tablet, sublingual 0.4 mg sublingual Q5M PRN (Reason: chest pain) Qty: 30 5RF Rx Instructions: do not exceed 3 doses per episode propranolol 60 mg tablet 60 mg PO BID gabapentin 600 mg tablet 600 mg PO DAILY omeprazole 40 mg capsule,delayed release(DR/EC) 40 mg PO BID clonazepam 1 mg tablet 1 mg PO TID 30 Days Qty: 90 2RF primidone 50 mg tablet See Rx Instructions PO .COMPLEX Qty: 360 1RF Rx Instructions: orally; 1 tab in the am 3 tabs bedtime escitalopram oxalate 20 mg tablet 20 mg PO DAILY Qty: 90 3RF trazodone 100 mg tablet 50 mg PO BEDTIME 90 Days Qty: 45 1RF fenofibrate 160 mg tablet PO Zyrtec 10 mg capsule 10 mg PO DAILY PRN Referrals: Josh Sequeira [Physician, Ear, Nose, Throat] - 3 days Print Language: Chadian
[2024-10-19 12:02] LABS: MANUAL DIFF FLAG NO
[2024-10-19 12:05] LABS: Hematocrit 35.0 % (42.0-52.0); Hemoglobin 12.1 g/dl (14.0-18.0); Imm Gran Abs Auto 0.01 X10*3/uL (0.00-0.03); Imm Gran Pct Auto 0.1 % (0.0-0.4); Lymphocytes Absolute Auto 2.3 X10*3/uL (1.2-4.9); Mean Corpuscular HGB Conc 34.6 g/dl (31.0-36.0); Mean Corpuscular Hemoglobin 31.2 pg (27.0-33.0); Mean Corpuscular Volume 90.2 fL (80.0-98.0); NRBC Abs Auto 0.000 X10*3/uL (0.0-0.012); NRBC Pct Auto 0.0 /100WBC (0.0-0.2); Platelet Count 187 X10*3/uL (160-400); Red Blood Count 3.88 X10*6/uL (4.60-5.80); White Blood Count 7.4 X10*3/uL (4.8-10.8)
[2024-10-19 12:21] LABS: Alanine Aminotransferase 17 U/L (0-40); Albumin Level 3.7 g/dL (3.5-5.0); Alkaline Phosphatase 39 U/L (39-117); Anion Gap 12 (12-20); Aspartate Amino Transferase 26 U/L (5-37); Blood Urea Nitrogen 31 mg/dL (9-16); Calcium 8.8 mg/dL (8.4-10.2); Carbon Dioxide 22 mmol/L (22-29); Chloride 111 mmol/L (96-108); Creatinine Clr Calc Pharmacy 73.7; Estimated Glomerular Filt Rate 59; Potassium 4.2 mmol/L (3.3-5.1); Sodium 141 mmol/L (135-145); Total Protein 5.9 g/dL (6.5-8.0)
--- NOTE | 2024-10-19 13:02 | ED_ITS ---
History of Present Illness General Chief Complaint: Epistaxis Stated Complaint: nose bleed Time Seen by Provider: 10/19/24 11:53 History of Present Illness HPI Narrative: Patient is a 74-year-old male presented today with having bleeding from the right nostril. No systemic complaints patient has a history of hypertension is on Plavix. Not on Coumadin not on Xarelto not on Eliquis. From home. Related Data Home Medications ?Medication ?Instructions ?Recorded ?Confirmed amlodipine 5 mg tablet 5 mg PO DAILY 04/01/2006/18 cholecalciferol (vitamin D3) 25 25 mcg PO DAILY 06/18/24 mcg (1,000 unit) capsule isosorbide mononitrate 30 mg 30 mg PO DAILY 04/01/20 0 06/18/24 tablet,extended release 24 hr omeprazole 40 mg capsule,delayed 40 mg PO BID 03/24/22 06/18/24 release propranolol 60 mg tablet 60 mg PO BID 06/15/22 gabapentin 600 mg tablet 600 mg PO DAILY 09/30/2207/10 cetirizine 10 mg capsule (Zyrtec) 10 mg PO DAILY PRN 0 11/22/23 06/18/24 fenofibrate 160 mg tablet mg PO 12/12/23 06/18/24 Previous Rx's ?Medication ?Instructions ?Recorded nitroglycerin 0.4 mg sublingual 0.4 mg sublingual Q5M PRN chest 11/15/22 tablet pain #30 tabs rosuvastatin 40 mg tablet 40 mg PO DAILY #90 tabs 07/10 clopidogrel 75 mg tablet 75 mg PO DAILY #90 tabs 04/18 07/10 clonazepam 1 mg tablet 1 mg PO TID 30 days #90 tabs 06/18/24 escitalopram oxalate 20 mg tablet 20 mg PO DAILY #90 t abs 06/18/24 primidone 50 mg tablet See Rx Instructions PO .COMP KELLEY 06/18/24 #360 tabs trazodone 100 mg tablet 50 mg (1/2 x 100 mg) PO BEDT LUZ ELENA 90 06/18/24 days #45 tabs fesoterodine 8 mg tablet,extended 8 mg PO DAILY 90 day s #90 tabs 10/12/24 release 24 hr tamsulosin 0.4 mg capsule 0.4 mg PO BEDTIME 90 days #9 0 caps 06/27/25 Allergies Allergy/AdvReac Type Severity Reaction Status Date / Time No Known Allergies (No Known Allergy Verified 10/19/24 11:35 Allergies*) Review of Systems 2 Review of Systems: No fever no chills no systemic complaints no dizziness Yes all other systems are reviewed and are negative [facility] Past Medical History Attestation statement: The following information was validated with the patient. Medical History Benign essential tremor Post traumatic stress disorder (PTSD) Panic disorder Other and unspecified hyperlipidemia GERD (gastroesophageal reflux disease) Essential hypertension Atherosclerotic cardiovascular disease Surgical History History of surgery on lower extremity Hx of decompression of ulnar nerve History of hernia repair Stented coronary artery History of cardiac catheterization (~06/19/19) Family History Family History Father Stroke Mother No problems noted. Social History Social History Alcohol intake: former Patient Tobacco Use Status: Former Tobacco user Smoked in Last 30 Days: No Use of substances other than those prescribed or required for medical reasons: No Advance Directives: Yes Advance Directives Information Provided: No Advance Directives on File: No Physical Exam 2 Vital Signs: Vital Signs: Last Vital Signs Temp 98.6 F 10/19/24 11:31 Pulse 71 10/19/24 11:31 Resp 18 10/19/24 11:31 BP 111/68 10/19/24 11:31 Pulse Ox 95 10/19/24 11:31 O2 Del Method Room Air 10/19/24 11:31 BMI result Body Mass Index 50.0 Appearance: Alert. Oriented X3. No acute distress. Eyes: Pupils equal, round and reactive to light. ENT: Pharynx normal. Neck: Normal inspection. Neck supple. No lymph nodes noted. No crepitus CVS: Normal heart rate and rhythm. Pulses normal. Normal S1 and S2 Respiratory: No respiratory distress. Breath sounds normal. No Wheezing. No rales Abdomen: Soft and nontender. No rigidity. No distention. good BS x4 Skin: Skin warm and dry. Normal skin color. Normal skin turgor. Extremities: No lower extremity edema. Neurovascular intact to all extremities. No Lacerations. No Rash Neuro: Oriented X 3. No motor deficit. No sensory deficit. Moving all extermities. No slurred speech Medical Decision Making Medical Decision Making [facility] Narrative: Upon my initial evaluation bleeding has stopped patient in no acute distress his hemoglobin is 12 baseline is approximately 13 no dizziness no nausea no vomiting symptom free. Explained to patient she he can still get nosebleed that comes and go. Will require localized pressure from time to time worsened condition can always come back. In no distress. More likely an anterior bleed as patient's symptoms. For at least hour and a half while he was in the emergency department. In no distress. Differential Diagnosis Differential Diagnoses: The differential diagnosis associated with the presentation includes Admission/Observation Consideration of admission/observation: Escalation of care including admission/observation considered Lab Data [facility] Lab Attestation statement: I reviewed the patient's lab results. 10/19/24 11:58 10/19/24 11:58 Labs: Lab Results 10/19/24 Range/Units 11:58 WBC 7.4 (4.8-10.8) X10*3/uL RBC 3.88 L (4.60-5.80) X10*6/uL Hgb 12.1 L (14.0-18.0) g/dl Hct 35.0 L (42.0-52.0) % MCV 90.2 (80.0-98.0) fL MCH 31.2 (27.0-33.0) pg MCHC 34.6 (31.0-36.0) g/dl RDW 13.6 (11.0-16.0) % Plt Count 187 (160-400) X10*3/uL MPV 10.0 (9.4-12.4) fL Immature Gran % (Auto) 0.1 (0.0-0.4) % Neut % (Auto) 54.9 (45-73) % Lymph % (Auto) 30.9 (20-40) % [place] % (Auto) 9.9 (2-11) % Eos % (Auto) 3.7 (0-4) % Baso % (Auto) 0.5 (0-2) % Lymph # (Auto) 2.3 (1.2-4.9) X10*3/uL [place] # (Auto) 0.7 (0.1-1.2) X10*3/uL Eos # (Auto) 0.3 (0.0-0.4) X10*3/uL Baso # (Auto) 0.0 (0.0-0.2) X10*3/uL Abs Immat Gran (auto) 0.01 (0.00-0.03) X10*3/uL Absolute Neuts (auto) 4.0 (2.0-8.3) x10*3/uL Absolute Nucleated RBC 0.000 (0.0-0.012) X10*3/uL Nucleated RBC % (auto) 0.0 (0.0-0.2) /100WBC Sodium 141 (135-145) mmol/L Potassium 4.2 (3.3-5.1) mmol/L Chloride 111 H (96-108) mmol/L Carbon Dioxide 22 (22-29) mmol/L Anion Gap 12 (12-20) BUN 31 H (9-16) mg/dL Creatinine 1.21 (0.5-1.4) mg/dL Estim Creat Clear Calc 73.7 Estimated GFR 59 Random Glucose 114 (60-115) mg/dL Calcium 8.8 (8.4-10.2) mg/dL Total Bilirubin 0.3 (0.0-1.0) mg/dL AST 26 (5-37) U/L ALT 17 (0-40) U/L Alkaline Phosphatase 39 (39-117) U/L Total Protein 5.9 L (6.5-8.0) g/dL Albumin 3.7 (3.5-5.0) g/dL External Record Review External record reviewed: Office record Chronic Conditions History of CVA Social Determinants Patient?s care significantly limited by Social Determinants of Health including: Problems related to primary support group Discharge Plan Discharge Clinical Impression: Anterior epistaxis Prescriptions: No Action rosuvastatin 40 mg tablet 40 mg PO DAILY Qty: 90 3RF clopidogrel 75 mg tablet 75 mg PO DAILY Qty: 90 3RF tamsulosin 0.4 mg capsule 0.4 mg PO BEDTIME 90 Days Qty: 90 1RF fesoterodine 8 mg tablet extended release 24 hr 8 mg PO DAILY 90 Days Qty: 90 1RF cholecalciferol (vitamin D3) 25 mcg (1,000 unit) capsule 25 mcg PO DAILY isosorbide mononitrate 30 mg tablet extended release 24 hr 30 mg PO DAILY amlodipine 5 mg tablet 5 mg PO DAILY nitroglycerin 0.4 mg tablet, sublingual 0.4 mg sublingual Q5M PRN (Reason: chest pain) Qty: 30 5RF Rx Instructions: do not exceed 3 doses per episode propranolol 60 mg tablet 60 mg PO BID gabapentin 600 mg tablet 600 mg PO DAILY omeprazole 40 mg capsule,delayed release(DR/EC) 40 mg PO BID clonazepam 1 mg tablet 1 mg PO TID 30 Days Qty: 90 2RF primidone 50 mg tablet See Rx Instructions PO .COMPLEX Qty: 360 1RF Rx Instructions: orally; 1 tab in the am 3 tabs bedtime escitalopram oxalate 20 mg tablet 20 mg PO DAILY Qty: 90 3RF trazodone 100 mg tablet 50 mg PO BEDTIME 90 Days Qty: 45 1RF fenofibrate 160 mg tablet PO Zyrtec 10 mg capsule 10 mg PO DAILY PRN Print Language: Gabonese
--- NOTE | 2024-10-19 13:18 | PC.NURSE ---
Pt BP noted to be low when he sat up (85/50)L arm; retaken R arm 92/56; on standing, pt denies dizziness but bp was 74/38; MD made aware; IV access established and IVF's infusing per MD; pt state this morning at home he felt funny, like I was going to pass out but didn't ; SB/SR per monitor
--- NOTE | 2024-10-19 15:54 | PC.NURSE ---
Pt ambulated to/from B R with steady, independent gait
== END 2024-10-19 16:28 | disposition home or self-care (01) ==
PROVIDERS: Physician Assistant Medical; Emergency Provider Emergency Medicine Emergency Medical Services
DX: R04.0 Epistaxis (principal); R11.0 Nausea; R00.1 Bradycardia, unspecified; R94.31 Abnormal electrocardiogram [ECG] [EKG]; R42 Dizziness and giddiness; I10 Essential (primary) hypertension; Z79.899 Other long term (current) drug therapy; Z87.891 Personal history of nicotine dependence
CPT/HCPCS: 36415; 80053; 85025; 93005; 96360; 96361; 99284; 99285

== ENCOUNTER → 2024-10-19 13:24 | Outpatient (BNV) | payer MEDICARE, SELFPAY | PROVIDERS: Emergency Provider Emergency Medicine Emergency Medical Services; Visit Provider Internal Medicine Cardiovascular Disease | DX: R00.1 Bradycardia, unspecified (principal) | CPT/HCPCS: 93010 ==

== ENCOUNTER 2024-10-23 15:40 | Outpatient (AMB) | payer MEDICARE, SELFPAY ==
--- OUTSIDE RECORDS SUMMARY | 2008-09-13 11:00 | XMS_ITS | Continuity of Care Document ---
Author Name [facility] Organization [facility] Care Team Providers Care Fee Clerk Name Role Phone [facility] Unavailable Unavailable Problems Combined list of problems from Department of Defense and Veterans Affairs facilities. It does not include entries that were removed or entered in error. Problem Status Onset Date Problem Type Date of Resolution Comments Source Dermatitis or Eczema * (ICD-9-CM 692.9) Active Condition [facility] Hyperlipidemia * (ICD-9-CM 272.4) Active Condition [facility] Hypertension * (ICD-9-CM 401.9) Active Condition [facility] [place] [facility] Immunizations Combined list of available immunizations from the Department of Defense and Veterans Affairs facilities. Immunization Series Date Given Administered By Site Reaction Lot Number CVX Code Drug Business Unit Leader Status Comments Source FLU,3 YRS (HISTORICAL) 2007 88 complet ed [place] [facility] [place] [facility] Social History Combined list of available smoking, tobacco, and other social history from Department of Defense and Veterans Affairs facilities. Social History Type Response Date Comment Source Tobacco smoking status MOIS QUIT TOBACCO USE 1-7 YEARS AGO 09/13/2008 [facility] [place] [facility] History of tobacco use QUIT TOBACCO USE 1-7 YEARS AGO 09/13/2008 Quit smoking about 5-6 years ago. 1 1/2- 2 PPD x 30 years [facility]
--- OUTSIDE RECORDS SUMMARY | 2023-10-18 10:10 | XMS_ITS ---
Author Organization [facility] Address [address] [place] [address] Care Team Providers Care Nuclear Plant Instrument Technician Name Role Phone Danny BENSON, Osorio Primary Care Provider Jono Negron Jr Unavailable [phone] REASON FOR VISIT screening Encounters Encounter Location Date Provider Diagnosis [facility] Outpatient [address] [place], [place] [phone] 10/18/2023 Jono Lay Jr Encounter for screening colonoscopy Z12.11 and Personal history of colonic polyps Z86.010 Assessments Encounter Date Diagnosis (ICD Code) Assessment Notes Treatment Notes Treatment Clinical Notes Section Notes 10/18/2023 Encounter for screening colonoscopy (ICD-10 - Z12.11) 10/18/2023 Personal history of colonic polyps (ICD-10 - Z86.010) Plan Of Treatment No Information Progress Notes * NIMCO, JAK ADOB: [birth year] (74 yo M)Acc No.[id number]:10/18/2023 COLON WITH MAC Patient: JAK GUZMÁN Provider: Fritz Lay MD :1950 A ge:73 Y S ex:Male Date:10/18/2023 Address:[address] [place] [address] [id number] Pcp:Osorio Delgado MD Subjective: * Chief Complaints: * 1 . Screening. * Medical History: Objective: * Vitals: Assessment: * Assessment: 1. E ncounter for screening colonoscopy - Z12.11 (Primary) 2 . P ersonal history of colonic polyps - Z86.010 Plan: * Treatment: * Procedure Codes: G 0105 COLOREC CANCR SCR; COLNSCPY HI RISK, [address]381 DIAGNOSTIC COLONOSCOPY, Modifiers: 53 , 0529F INTRVL [...] Date: 10/18/2023 Generated for Nanci carter/Elo/Rowenaitting on: 10/23/2024 04:02 PM EDT
--- NOTE | 2024-10-23 15:40 | A.OFFVIS_ITS ---
Intake Visit Reasons: 6m followup Intake Note: Patient is present for 6 mo follow up for URINARY URGENCY Urology Medication:TAMSULOSIN PVR:79 mls Antibiotic Allergy:NONE Blood Thinner:NONE Metallurgist Process Required: No Accompanied by: Self / Same As Patient Allergies No Known Allergies (No Known Allergies*) Allergy (Verified 10/23/24 15:40) HPI Comments Details: Yoshi is a pleasant male. He is a patient of Dr. Delgado. He is seen for the following urologic conditions - urinary urgency and frequency Six-month follow-up Remains on high-dose Toviaz and tamsulosin PVR 80 cc Good control for urge during the day Has issues with large volumes urination at nighttime Pitting edema bilateral to mid thigh Emphasized either use of compression stockings or positional drainage in the afternoon to reduce nighttime urination Prior Office cystoscopy - Open bladder neck Lower urinary tract symptoms Primarily urinary urgency and frequency PSA 09/08 0.86 Bladder ultrasound 03/10 40cc Office cystoscopy open bladder neck Current medications include tamsulosin and oxybutynin PFSH Medical History Benign essential tremor Post traumatic stress disorder (PTSD) Panic disorder Other and unspecified hyperlipidemia GERD (gastroesophageal reflux disease) Essential hypertension Atherosclerotic cardiovascular disease Surgical History History of surgery on lower extremity Hx of decompression of ulnar nerve History of hernia repair Stented coronary artery History of cardiac catheterization (~06/19/19) Family History Father Stroke Mother No problems noted. Social History Alcohol intake: former Patient Tobacco Use Status: Former Tobacco user Review of Systems Const Denies chills and Denies fever(s) Card Reports no additional complaints and Denies syncope Resp Denies cough GI Denies abdominal pain and Denies heartburn Reports as per HPI and Denies change in libido Neuro Denies syncope Psych Denies change in libido Endo Denies change in libido Physical Exam Const General: cooperative, healthy appearing, comfortable and no acute distress Orientation/consciousness: patient oriented x3 HEENT Face and sinus: Yes normal facial exam Mouth: moist mucous membranes Neck Neck: Yes normal visual inspection, Yes full ROM and Yes trachea midline Chest Chest palpation & inspection: normal inspection of the chest Resp Effort & Inspection: normal respiratory effort, able to speak in complete sentences and no respiratory distress GI Inspection: Yes normal to inspection Back/Spine/Pelvis Cervical Spine: normal cervical lordosis Thoracic/Lumbar Spine: thoracic and lumbar spine normal to inspection Skin General skin exam: no rashes or lesions noted Neuro General: patient oriented x3, gait normal, tone normal and moves all extremities Extrem General: Yes normal to inspection and Yes capillary refill normal Office Procedures Post Void Residual Post Residual Void Post Void Residual (PVR): [id number] Void Residual by ultrasound Results AMB Urinalysis, Automated UA Leukoctes 0 Leena/uL Last Edit by Krystal Montes MA on 10/23/24 16:03 UA Nitrite Negative Last Edit by Krystal Montes MA on 10/23/24 16:03 UA Urobilinogen 3.5 mg/dL Last Edit by Krystal Montes MA on 10/23/24 16:03 UA Protein 0 mg/dL Last Edit by Krystal Montes MA on 10/23/24 16:03 UA pH 6.5 Last Edit by Krystal Montes MA on 10/23/24 16:03 UA Blood 0 Moy/uL Last Edit by Krystal Montes MA on 10/23/24 16:03 UA Specific [place] 1.005 Last Edit by Krystal Montes MA on 10/23/24 16:03 UA Ketone Negative Last Edit by Krystal Montes MA on 10/23/24 16:03 UA Bilirubin 0 mg/dL Last Edit by Krystal Montes MA on 10/23/24 16:03 UA Glucose 0 mg/dL Last Edit by Krystal Montes MA on 10/23/24 16:03 Assessment & Plan Assessment & Plan (1) Urinary urgency: Code(s): R39.15 - Urgency of urination Category: Medical (2) Overactive bladder: Code(s): N32.81 - Overactive bladder Category: Medical Plan Continue medications Recommend postural drainage for legs each day Orders: Orders AMB Urinalysis Automated Today Z13.9 - Encounter for screening, unspecified Patient Instructions: This note is constructed using voice recognition software. While every effort has been made to ensure accuracy continuous improvement coach errors may have been included. Imaging studies, laboratory and physical exam results were discussed and reviewed in detail. No major barriers to patient understanding were identified. An opportunity to ask questions regarding the treatment plan was provided. All questions were answered. The patient expressed understanding and agreement with the above treatment plan. The patient is aware they should contact our office by phone for worsening of their current condition or the appearance of new urologic symptoms. Compliance is encouraged with any medications and followup testing that is ordered. It is a privilege to participate in the urologic care of your patient. If you have any questions or concerns regarding treatment for the above conditions, or other urologic issues, please do not hesitate to contact me. The office telephone contact is [phone]. Sincerely, Dr Samir Garcia MD, [facility] - Urology Compassionate Specialist Care for the Genitourinary System Coding Level of Care Code Est Pt Level 3 (19823) Complex EM visit Add On G2211 Diagnoses Urinary urgency R39.15 Overactive bladder N32.81 CPT Codes Post Residual Void - PVR CPT Code: 72081-Znko Void Residual by ultrasound ([id number])
--- OUTSIDE RECORDS SUMMARY | 2024-10-23 16:02 | XMS_ITS | Patient Health Record ---
Author Organization [facility] y[place] Address [address] [place] [address] Care Team Providers Care Motel Clerk Name Role Phone Osorio Delgado MD Primary Care Provider Shmuel Villarreal Unavailable [phone] Reason For Referral No Information Medications Medication [...] Status Risk Notes Problem Acquired hallux rigidus (2840493) Hallux rigidus, left foot (M20.22) Active confirmed Problem Acquired hallux rigidus (6197324) Hallux rigidus, right foot (M20.21) Active confirmed Plan Of Treatment Pending Test Test Name Order Date X ray : Foot, left 3V 03/28/2019 Insurance Providers Payer Name Payer Address Payer Phone Subscriber Number Group Number Insured Name Patient Relationship to Insured Coverage Start Date Coverage End Date Medicare National [employer] [address] [facility] [place] [address] [id number] Yoshi Mackenzie Self - patient is the insured [employer] [facility] [address] [place] [address] [phone] [id number] Yoshi Mackenzie Self - patient is the insured Medical (General) History Medical History History ICD Code Anxiety Arthritis Back,Hip,and Knee pain CAD (Cholesterol) Hiatal hernia High blood pressure Reflux ( GERD) Chicken pox Surgical History Surgery Date(Month/Year) hernia knee surgery, right Stent put in 07/05
== END 2024-10-23 16:19 | disposition home or self-care (01) ==
LOC: HO.HUSH 15:41
PROVIDERS: PCP Family Medicine; Visit Provider Urology
DX: R39.15 Urgency of urination (principal); N32.81 Overactive bladder; Z13.9 Encounter for screening, unspecified
CPT/HCPCS: 99213; G2211

== ENCOUNTER → 2024-10-23 15:40 | Outpatient (BNVA) | payer MEDICARE, SELFPAY | PROVIDERS: PCP Family Medicine; Visit Provider Urology | DX: R39.15 Urgency of urination (principal); N32.81 Overactive bladder | CPT/HCPCS: 51798; 81003; 99212 ==

== ENCOUNTER 2024-11-15 14:29 | Outpatient (AMB) | payer MEDICARE, SELFPAY ==
--- OUTSIDE RECORDS SUMMARY | 2008-09-13 11:00 | XMS_ITS | Continuity of Care Document ---
Author Name [facility] Organization [facility] Care Team Providers Care Child Care Coordinator Name Role Phone [facility] Unavailable Unavailable Problems Combined list of problems from Department of Defense and Veterans Affairs facilities. It does not include entries that were removed or entered in error. Problem Status Onset Date Problem Type Date of Resolution Comments Source Dermatitis or Eczema * (ICD-9-CM 692.9) Active Condition [facility] Hyperlipidemia * (ICD-9-CM 272.4) Active Condition [facility] Hypertension * (ICD-9-CM 401.9) Active Condition [facility] [place] [facility] Immunizations Combined list of available immunizations from the Department of Defense and Veterans Affairs facilities. Immunization Series Date Given Administered By Site Reaction Lot Number CVX Code Drug Chart Computer Status Comments Source FLU,3 YRS (HISTORICAL) 2007 88 complet ed [facility] [place] [facility] Social History Combined list of available smoking, tobacco, and other social history from Department of Defense and Veterans Affairs facilities. Social History Type Response Date Comment Source Tobacco smoking status MSIS QUIT TOBACCO USE 1-7 YEARS AGO 09/13/2008 [facility] History of tobacco use QUIT TOBACCO USE 1-7 YEARS AGO 09/13/2008 Quit smoking about 5-6 years ago. 1 1/2- 2 PPD x 30 years [facility]
--- OUTSIDE RECORDS SUMMARY | 2023-10-18 10:10 | XMS_ITS ---
Author Organization [facility] Address [address] [place] [address] Care Team Providers Care Drafting Clerk Name Role Phone Danny (RETIRED) , Osorio Primary Care Provider Unavailable Jono Lay Jr Unavailable [phone] REASON FOR VISIT screening Encounters Encounter Location Date Provider Diagnosis [facility] [place] Outpatient [address] [place] [id number] 10/18/2023 Jono Lay Jr Encounter for screening colonoscopy Z12.11 and Personal history of colonic polyps Z86.010 Assessments Encounter Date Diagnosis (ICD Code) Assessment Notes Treatment Notes Treatment Clinical Notes Section Notes 10/18/2023 Encounter for screening colonoscopy (ICD-10 - Z12.11) 10/18/2023 Personal history of colonic polyps (ICD-10 - Z86.010) Plan Of Treatment No Information Progress Notes * NIMCOJAK ADOB: [birth year] (74 yo M)Acc No.[id number]:10/18/2023 COLON WITH MAC Patient: JAK GUZMÁN Provider: Fritz Lay MD :1950 A ge:73 Y S ex:Male Date:10/18/2023 Address:[address] [place] [address] [id number] Pcp:Osorio Delgado (RETIRED) MD Subjective: * Chief Complaints: * 1 . Screening. * Medical History: Objective: * Vitals: Assessment: * Assessment: 1. E ncounter for screening colonoscopy - Z12.11 (Primary) 2 . P ersonal history of colonic polyps - Z86.010 Plan: * Treatment: * Procedure Codes: G 0105 COLOREC CANCR SCR; COLNSCPY HI RISK, 20685 DIAGNOSTIC COLONOSCOPY, Modifiers: 53 , 0529F INTRVL [...] Pending * Provider: Fritz Lay MD Date: 10/18/2023 Generated for Nanci carter/Elo/Rowenaitting on: 11/15/2024 02:37 PM EDT
[2024-11-15 15:08] VITALS: BP 134/68
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
== END 2024-11-15 17:01 | disposition home or self-care (01) ==
LOC: HO.HOP 14:29
PROVIDERS: PCP Family Medicine; Visit Provider Psychiatry & Neurology Psychiatry
DX: F41.0 Panic disorder [episodic paroxysmal anxiety] (principal); F41.1 Generalized anxiety disorder; F43.10 Post-traumatic stress disorder, unspecified; M25.561 Pain in right knee; R26.89 Other abnormalities of gait and mobility; R55 Syncope and collapse
CPT/HCPCS: 90833; 99213

== ENCOUNTER 2024-11-15 14:29 | Outpatient (REF) | payer MEDICARE, SELFPAY ==
--- NOTE | 2024-11-15 15:31 | ECG_ITS ---
Test Reason : HTN Blood Pressure : */* mmHG Vent. Rate : 64 BPM Atrial Rate : 64 BPM P-R Int : 160 ms QRS Dur : 86 ms QT Int : 422 ms P-R-T Axes : 28 -12 78 degrees QTcB Int : 435 ms Sinus rhythm with Premature atrial complexes Nonspecific T wave abnormality Abnormal ECG When compared with ECG of 19-Oct-2024 13:24, Premature atrial complexes are now Present Referred By: Alan Navarro Electronically Signed By: CAT WALTON MD
[2024-11-15 15:46] LABS: MANUAL DIFF FLAG NO
[2024-11-15 16:22] LABS: Hematocrit 35.4 % (42.0-52.0); Hemoglobin 12.0 g/dl (14.0-18.0); Imm Gran Abs Auto 0.02 X10*3/uL (0.00-0.03); Imm Gran Pct Auto 0.2 % (0.0-0.4); Lymphocytes Absolute Auto 2.7 X10*3/uL (1.2-4.9); Mean Corpuscular HGB Conc 33.9 g/dl (31.0-36.0); Mean Corpuscular Hemoglobin 31.5 pg (27.0-33.0); Mean Corpuscular Volume 92.9 fL (80.0-98.0); NRBC Abs Auto 0.000 X10*3/uL (0.0-0.012); NRBC Pct Auto 0.0 /100WBC (0.0-0.2); Platelet Count 203 X10*3/uL (160-400); Red Blood Count 3.81 X10*6/uL (4.60-5.80); White Blood Count 9.3 X10*3/uL (4.8-10.8)
[2024-11-15 16:53] LABS: Alanine Aminotransferase 19 U/L (0-40); Albumin Level 3.8 g/dL (3.5-5.0); Alkaline Phosphatase 42 U/L (39-117); Anion Gap 13 (12-20); Aspartate Amino Transferase 27 U/L (5-37); Blood Urea Nitrogen 17 mg/dL (9-16); Calcium 9.1 mg/dL (8.4-10.2); Carbon Dioxide 25 mmol/L (22-29); Chloride 108 mmol/L (96-108); Cholesterol 117 mg/dL (<200); Estimated Glomerular Filt Rate 53; HDL Cholesterol 30 mg/dL (>40); Magnesium 1.8 mg/dL (1.6-2.6); Potassium 3.9 mmol/L (3.3-5.1); Sodium 142 mmol/L (135-145); Total Protein 6.3 g/dL (6.5-8.0); Triglycerides 197 mg/dL (<150)
[2024-11-15 17:19] LABS: Folate 9.6 ng/mL (> or = 4.0); Vitamin B12 617 pg/mL (200-900)
== END 2024-11-15 14:30 | disposition home or self-care (01) ==
LOC: HO.LAB 14:29
PROVIDERS: PCP Family Medicine; Visit Provider Psychiatry & Neurology Psychiatry
DX: R42 Dizziness and giddiness (principal); F41.0 Panic disorder [episodic paroxysmal anxiety]; F41.1 Generalized anxiety disorder; F43.10 Post-traumatic stress disorder, unspecified; M25.561 Pain in right knee; R26.89 Other abnormalities of gait and mobility; R55 Syncope and collapse; I10 Essential (primary) hypertension; E66.01 Morbid (severe) obesity due to excess calories; Z68.42 Body mass index [BMI] 45.0-49.9, adult; G25.0 Essential tremor
CPT/HCPCS: 36415; 80053; 80061; 82607; 82746; 83735; 84443; 85025; 93005; 99212

== ENCOUNTER → 2024-11-15 15:31 | Outpatient (BNV) | payer MEDICARE, SELFPAY | PROVIDERS: PCP Family Medicine; Visit Provider Internal Medicine Cardiovascular Disease | DX: I49.1 Atrial premature depolarization (principal) | CPT/HCPCS: 93010 ==

== ENCOUNTER 2024-11-15 16:08 | Outpatient (AMB) | payer MEDICARE, SELFPAY ==
[2024-11-15 16:22] VITALS: BP 100/60; PULSE 72; TEMP 36.7; O2SAT 96; BMI 46.5
--- NOTE | 2024-11-15 16:22 | AM.OFFWIN_ITS ---
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 states he had bloodwork & ecg at [facility] today Patient Tobacco Use Status: Former Tobacco user Allergies No Known Allergies (No Known Allergies*) Allergy (Verified 11/15/24 16:27) Do you need a note to return to daycare/school/sports/work: No HPI HPI Comments History of Present Illness Details 74 y/o Male patient who presents to the walk in clinic with c/o Blood Pressure concerns. Pt reports Lightheadedness, feeling unbalanced and Body Hotness for 2-3 weeks. He was seen today by his Psychiatrist (Dr. Navarro) who ordered Lab work and ECG (Both pending results). Pt states that Dr. Navarro ordered B/P monitoring and noticed that Patient was having BP changes from high to low with position changes. He noticed BP change/drop of 40 points from standing to sitting. Patient has been monitoring his BP at home - randomly different times. He does not remember all the readings at this time. He would check his BP when he has the symptoms. Patient currently takes Propranolol 60 mg, Imdur 30 mg and Amlodipine 5 mg. He has an appointment with PCP 11/2024. [facility] Medical History (Updated 11/15/24 @ 17:08 by Isabell Sarmiento NP) Positional lightheadedness Benign essential tremor Post traumatic stress disorder (PTSD) Panic disorder Other and unspecified hyperlipidemia GERD (gastroesophageal reflux disease) Essential hypertension Atherosclerotic cardiovascular disease Surgical History History of surgery on lower extremity Hx of decompression of ulnar nerve History of hernia repair Stented coronary artery History of cardiac catheterization (~06/19/19) Family History Father Stroke Mother No problems noted. Social History Alcohol intake: former Patient Tobacco Use Status: Former Tobacco user Review of Systems Const All systems reviewed & are unremarkable except as noted in HPI and below Physical Exam Vital Signs: Last Vital Signs Temp 98.1 F 11/15/24 16:22 Pulse 72 11/15/24 16:22 BP 118/80 11/15/24 16:33 Pulse Ox 96 11/15/24 16:22 Oxygen Delivery Method Room Air 11/15/24 16:22 BMI result Body Mass Index 46.5 Const General: no acute distress Nutritional Appearance: obese Orientation/consciousness: patient oriented x3 HEENT Head: Yes normocephalic Ears: external ears normal and TM's normal bilaterally General nose exam: Normal external nose present Resp Effort & Inspection: normal respiratory effort and able to speak in complete sentences Auscultation: clear to auscultation bilaterally, no crackles, no rales, no rhonchi and no wheezes Cardio Heart sounds: S1 normal heart sound present and S2 normal heart sound present Neuro General: patient oriented x3, gait normal and moves all extremities Psych Speech and movement: Normal speech and movement present Assessment & Plan Assessment & Plan (1) Positional lightheadedness: Code(s): R42 - Dizziness and giddiness Plan: Advised to check his bP at home and keep a Log. Advised to change positions slowly F/U with PCP for possible Medication changes. Hydrate well with fluids. F/U with Dr. Navarro for results review. Coding Level of Care Code Est Pt Level 4 (66051) Diagnoses Positional lightheadedness R42 Time Spent (min) 20
[2024-11-15 16:33] VITALS: BP 118/80
== END 2024-11-15 17:07 | disposition home or self-care (01) ==
PROVIDERS: PCP Family Medicine; Visit Provider Nurse Practitioner Family
DX: R42 Dizziness and giddiness (principal)

== ENCOUNTER 2024-12-12 15:44 | Outpatient (AMB) | payer MEDICARE, SELFPAY ==
--- OUTSIDE RECORDS SUMMARY | 2008-09-13 11:00 | XMS_ITS | Continuity of Care Document ---
Author Name [facility] Organization [facility] Care Team Providers Care Mosaic Technician Name Role Phone [facility] Unavailable Unavailable Problems Combined list of problems from Department of Defense and Veterans Affairs facilities. It does not include entries that were removed or entered in error. Problem Status Onset Date Problem Type Date of Resolution Comments Source Dermatitis or Eczema * (ICD-9-CM 692.9) Active Condition [facility] Hyperlipidemia * (ICD-9-CM 272.4) Active Condition [facility] Hypertension * (ICD-9-CM 401.9) Active Condition [facility] [place] [facility] Immunizations Combined list of available immunizations from the Department of Defense and Veterans Affairs facilities. Immunization Series Date Given Administered By Site Reaction Lot Number CVX Code Drug Youth Probation Officer Status Comments Source FLU,3 YRS (HISTORICAL) 2007 88 complet ed [facility] Social History Combined list of available smoking, tobacco, and other social history from Department of Defense and Veterans Affairs facilities. Social History Type Response Date Comment Source Tobacco smoking status DCIS QUIT TOBACCO USE 1-7 YEARS AGO 09/13/2008 [facility] History of tobacco use QUIT TOBACCO USE 1-7 YEARS AGO 09/13/2008 Quit smoking about 5-6 years ago. 1 1/2- 2 PPD x 30 years [facility]
--- OUTSIDE RECORDS SUMMARY | 2023-10-11 09:40 | XMS_ITS ---
Author Organization [facility] Address [address] [place] [address] Care Team Providers Care Wood Setter Name Role Phone Danny (RETIRED) , Osorio Primary Care Provider Jono Livingston Jr [phone] REASON FOR VISIT screening Encounters Encounter Location Date Provider Diagnosis [facility] Outpatient [address] [place], [place] [phone] 10/11/2023 Jono Lay Jr Plan Of Treatment No Information Progress Notes * JAK RINALDI ADOB: [birth year] (74 yo M)Acc No.[id number]:10/11/2023 COLON WITH MAC Patient: JAK GUZMÁN Provider: Fritz Lay MD :1950 A ge:73 Y S ex:Male Date:10/11/2023 Address:[address] [place], [place] [phone] Pcp:Osorio Delgado (RETIRED) MD Subjective: * Chief [...] Date: 10/11/2023 Generated for Printi ng/Faxing/eTransmitting on: 12/12/2024 04:52 PM EDT
--- OUTSIDE RECORDS SUMMARY | 2023-10-18 10:10 | XMS_ITS ---
Author Organization [facility] Address [address] [place] [address] Care Team Providers Care Nematology Teacher Name Role Phone Danny (RETIRED) , Osorio Primary Care Provider Unavailable Jono Lay Jr Unavailable REASON FOR VISIT screening Encounters Encounter Location Date Provider Diagnosis [facility] Outpatient [address] [place] [id number] 10/18/2023 Jono Lay Jr Encounter for screening colonoscopy Z12.11 and Personal history of colonic polyps Z86.010 Assessments Encounter Date Diagnosis (ICD Code) Assessment Notes Treatment Notes Treatment Clinical Notes Section Notes 10/18/2023 Encounter for screening colonoscopy (ICD-10 - Z12.11) 10/18/2023 Personal history of colonic polyps (ICD-10 - Z86.010) Plan Of Treatment No Information Progress Notes * NIMCO, JAK ADOB: [birth year] (74 yo M)Acc No.[id number]:10/18/2023 COLON WITH MAC Patient: JAK GUZMÁN Provider: Fritz Lay MD :1950 A ge:73 Y S ex:Male Date:10/18/2023 Address:[address] [place] [address] [id number] Pcp:Osorio Delgado (RETIRED) MD Subjective: * Chief Complaints: * 1 . Screening. * Medical History: Objective: * Vitals: Assessment: * Assessment: 1. E ncounter for screening colonoscopy - Z12.11 (Primary) 2 . P ersonal history of colonic polyps - Z86.010 Plan: * Treatment: * Procedure Codes: G 0105 COLOREC CANCR SCR; COLNSCPY HI RISK, [address]324 DIAGNOSTIC COLONOSCOPY, Modifiers: 53 , 0529F INTRVL [...] 0 10/18/2023 Generated for Nanci carter/Elo/Rowenaitting on: 0 12/12/2024 04:52 PM EDT
--- NOTE | 2024-12-12 15:52 | A.OFFPC_ITS ---
Vital Signs 12/12/24 15:58 12/12/24 16:02 Height 5 ft 11 in Weight 129.727 kg BMI 39.9 BP 82/50 L 94/60 Blood Pressure Location Lt brachial Rt brachial Position Sitting Sitting Respiration 18 Pulse 67 Pulse Source Pulse Oximeter Temp 97.7 F Temp Source Temporal Artery Scan Pulse Oximetry (%) 95 Oxygen Delivery Method Room Air Intake Visit Reasons: 3 month follow up-elizabeth pt Machine Set Up Technician Required: No Accompanied by: Self / Same As Patient Allergies No Known Allergies (No Known Allergies*) Allergy (Verified 12/12/24 15:53) Medication List - Last Reconciled 12/12/24 by GERMAINE Yin cholecalciferol (vitamin D3) 25 mcg PO DAILY clonazepam 1 mg PO TID 30 days escitalopram oxalate 10 mg (1/2 x 20 mg) PO DAILY fenofibrate mg PO fesoterodine ER 8 mg PO DAILY 90 days gabapentin 300 mg PO DAILY isosorbide mononitrate ER 30 mg PO DAILY nitroglycerin 0.4 mg sublingual Q5M PRN omeprazole 40 mg PO BID oxybutynin chloride ER mg PO primidone orally; 1 tab in the am 3 tabs bedtime 3 months propranolol 60 mg PO BID rosuvastatin 40 mg PO DAILY tamsulosin 0.4 mg PO BEDTIME 90 days Held on 12/12/24. Instructions: Doctor's Order trazodone 50 mg (1/2 x 100 mg) PO BEDTIME 90 days Tobacco use date assessed: 12/12/24 Fall risk assessment: 1 Fall in past year Last assessed Fall Risk: 12/12/24 Dental Screening Dental Screen Date: 12/12/24 Did you have a dental visit in the last 12 months?: No Did you have a dental problem in the last 6 months where you did not have access to dental care?: No Was dental information given to patient?: No HPI HPI Comments History of Present Illness Details 74-year-old male with history of hyperte nsion, COPD, venous insufficiency, coronary artery disease, hyperlipidemia, major depressive disorder and anxiety, GERD, DANK presents to the office today for management of chronic conditions and to establish care. Depression/anxiety-following with Psychiatry. On escitalopram 10 mg, propranolol, clonazepam 1 mg t.i.d. and trazodone COPD-no recent exacerbation. Not on inhalers Venous insufficiency-bilateral with venous stasis changes noted and edema. Does report some discomfort as well as some paresthesias in the area Hyperlipidemia/CAD-on isosorbide, rosuvastatin. Following with Cardiology annually BPH-follows with Urology. On fesoterodine, oxybutynin, tamsulosin GERD-omeprazole Concerns: Lightheadedness-he reports positional lightheadedness ongoing for several years. He has not syncopized. This primarily happens when going from sitting to standing or squatting to standing. He reports he drinks about 516 oz glasses of water per day. Denies any associated symptoms including palpitations, dyspnea, vision changes, shortness of breath. No slurred speech or facial droop. No unilateral weakness or numbness. He is able to ambulate without assistive device Right knee pain-ongoing for years. No injury noted. He is able to ambulate Swelling in the bilateral lower extremities with pain in the right calf-again ongoing for years ROS: General: No fevers, malaise, unintentional weight loss HEENT: No blurred vision, diplopia. No sore throat, nasal congestion, rhinorrhea, sinus pain, ear pain Cardiovascular: No chest pain, palpitations. See HPI Respiratory: No shortness of breath, wheezing, cough GI: No abdominal pain, nausea, vomiting, diarrhea, constipation, melena, hematochezia : No dysuria, hematuria, increased urinary frequency, decreased urinary output MSK: No myalgia, back pain. See HPI Neuro: No headaches, weakness, paresthesias Skin: No rashes or lesions EXAM: Constitutional - Awake and Alert, No apparent distress Eyes - PERRL Cardiovascular - S1S2, RRR, No edema Respiratory - Normal lung expansion, Normal respiratory effort, No respiratory distress, CTA bilaterally Extremities - no calf tenderness bilaterally, no swelling MSK- focal tenderness over the medial aspect of the right knee-possibly overlying a varicose vein though barely palpable. Full range of motion Skin - Warm/Dry. Venous stasis changes in the bilateral lower extremities Neurological - Alert & oriented x3, CN II-XII in tact Psychological - Appropriate affect [facility] Medical History (Updated 12/12/24 @ 16:50 by GERMAINE Yin) Venous insufficiency Positional lightheadedness Benign essential tremor Post traumatic stress disorder (PTSD) Panic disorder Other and unspecified hyperlipidemia GERD (gastroesophageal reflux disease) Essential hypertension Atherosclerotic cardiovascular disease Surgical History History of colonoscopy (~10/18/23) History of surgery on lower extremity Hx of decompression of ulnar nerve History of hernia repair Stented coronary artery History of cardiac catheterization (~06/19/19) Family History Father Stroke Mother No problems noted. Social History Housing: House Alcohol intake: former Patient Tobacco Use Status: Former Tobacco user (Quite in 2004) e-Cigarette/Vaping Use: Never Used service: Yes Current occupational status: retired Cognitive needs: No Hearing needs: No Vision needs: Yes (Reading) Questionnaire PHQ-9 Over the last 2 weeks, how often have you been bothered by any of the following problems? 1. Little interest or pleasure in doing things: not at all 2. Feeling down, depressed, or hopeless: not at all 3. Trouble falling or staying asleep, or sleeping too much: several days 4. Feeling tired or having little energy: several days 5. Poor appetite or overeating: several days 6. Feeling bad about yourself - or that you are a failure or have let yourself or your family down: not at all 7. Trouble concentrating on things, such as reading the newspaper or watching television: not at all 8. Moving or speaking so slowly that other people could have noticed. Or the opposite - being so fidgety or restless that you have been moving around a lot more than usual: not at all 9. Thoughts that you would be better off or of hurting yourself in some way: not at all Total score: 3 Source: Developed by Drs. Chilo Piper, Santa Robbins, Andry Mclaughlin and colleagues, with an educational nadira from [employer]. Thrive Questionnaire Date Thrive assessed: 12/12/24 I am a: Patient What is your living situation today?: I have a steady place to live Within the past 12 months, did the food you bought not last and you didn't have the money to get more?: Never true Within the past 12 months, did you worry whether your food would run out before you got money to buy more?: Never true Do you have trouble paying for medicines?: No Do you have trouble getting transportation to medical appointments?: No Do you have trouble paying your heating and electricity bill?: No Do you have trouble taking care of your child, family member or friend?: Yes Do you have trouble with day-to-day activities such as bathing, preparing meals, shopping, managing finances, etc.?: No Are you currently unemployed and looking for a job?: No Are you interested in more education?: No Please select the resources that you would like help with: None THRIVE Score: 0 AARON-7 AMB Questionnaire AARON-7 Date AARON - 7 assessed: 12/12/24 Feeling nervous, anxious, or on edge: 0 = Not at all Not being able to stop or control worryin = Not at all Worrying too much about different things: 0 = Not at all Trouble relaxin = Not at all Being so restless that it is hard to sit still: 0 = Not at all Becoming easily annoyed or irritable: 0 = Not at all Feeling afraid as if something awful might happen: 0 = Not at all Total AARON-7 score (0-4 normal; 5-9 mild; 10-14 moderate; 15-21 severe): 0 Source: Developed by Drs. Chilo Piper, Santa Robbins, Andry Mclaughlin and colleagues, with an educational nadira from [employer]. Physical exam (Primary Care) Vital Signs: Last Vital Signs Temp 97.7 F 12/12/24 15:58 Pulse 67 12/12/24 15:58 Resp 18 12/12/24 15:58 BP 94/60 12/12/24 16:02 Pulse Ox 95 12/12/24 15:58 Oxygen Delivery Method Room Air 12/12/24 15:58 BMI result Body Mass Index 39.9 Tobacco/Smoking Status: Tobacco use Status Tobacco use date assessed 12/12/24 12/12/24 16:02 Patient Tobacco Use Status Former Tobacco user (Quite 12/12/24 16:02 in 2004) e-Cigarette/Vaping Use Never Used 12/12/24 16:02 PHQ-9: PHQ-9 Score PHQ-9: Total score 3 12/12/24 16:08 Thrive Assessment: Date of Thrive Assessment Date Thrive assessed 12/12/24 12/12/24 16:04 Coding Level of Care Code New Pt Level 4 (10336) Complex EM visit Add On G2211 Diagnoses Positional lightheadedness R42 Right knee pain M25.561 Right calf pain M79.661 Essential hypertension I10 Venous insufficiency I87.2 Panic disorder F41.0 Assessment & Plan Assessment & Plan (1) Positional lightheadedness: Code(s): R42 - Dizziness and giddiness Category: Medical Plan: Orthostatic vital signs positive. Hold tamsulosin and discontinue amlodipine. Advised to continue with increased hydration and use caution when changing positions. Follow-up in 1 week (2) Right knee pain: Code(s): M25.561 - Pain in right knee Category: Medical Plan: X-ray of the right knee ordered. Plan to be adjusted pending results (3) Right calf pain: Code(s): M79.661 - Pain in right lower leg Category: Medical Plan: Ultrasound of the right lower extremity ordered (4) Essential hypertension: Code(s): I10 - Essential (primary) hypertension Category: Medical Plan: Borderline hypotensive at baseline. He is hypotensive with position changes. Discontinue amlodipine. He can continue Imdur for now but may need to discuss lowering dose of this versus propranolol (5) Venous insufficiency: Code(s): I87.2 - Venous insufficiency (chronic) (peripheral) Category: Medical Plan: Compression stockings ordered. Also advised to elevate legs. Ammonium lactate ordered (6) Panic disorder: Code(s): F41.0 - Panic disorder [episodic paroxysmal anxiety] Category: Medical Plan: Discussed with psychiatry about possibly lowering clonazepam dose Plan f/up in 1 week Orders: Orders US venous duplex LE RT Today M79.661 - Pain in right lower leg XR knee RT 3V Today M25.561 - Pain in right knee, M79.661 - Pain in right lower leg Medications: New ammonium lactate 12% 1 appl topical BID 400 grams 1RF compr.stocking,knee,long,x-lrg As directed 12 ea 0RF I87.2 - Venous insufficiency (chronic) (peripheral), R60.9 - Edema, unspecified compr.stocking,knee,long,x-lrg As directed 12 ea 0RF I87.2 - Venous insufficiency (chronic) (peripheral), R60.9 - Edema, unspecified On Hold tamsulosin Hold Comment: Doctor's Order 0.4 mg PO BEDTIME 90 days 90 caps 1RF
[2024-12-12 15:58] VITALS: BP 82/50; PULSE 67; RESP 18; TEMP 36.5; O2SAT 95; BMI 39.9
[2024-12-12 16:02] VITALS: BP 94/60
--- OUTSIDE RECORDS SUMMARY | 2024-12-12 16:52 | XMS_ITS | Patient Health Record ---
Author Organization [facility] [place] Address [address] [place] [address] Care Team Providers Care Client Manager Large Law Name Role Phone Osorio Delgado MD Primary Care Provider Shmuel Villarreal Unavailable [phone] Reason For Referral No Information Medications Medication [...] Status Risk Notes Problem Acquired hallux rigidus (5011326) Hallux rigidus, left foot (M20.22) Active confirmed Problem Acquired hallux rigidus (4154372) Hallux rigidus, right foot (M20.21) Active confirmed Plan Of Treatment Pending Test Test Name Order Date X ray : Foot, left 3V 03/28/2019 Insurance Providers Payer Name Payer Address Payer Phone Subscriber Number Group Number Insured Name Patient Relationship to Insured Coverage Start Date Coverage End Date Medicare National Govt Svcs Inc [address] [facility] [address] [id number] Yoshi Mackenzie Self - patient is the insured Med[employer] Blue [facility] [address] [place] [address] [phone] [id number] Yoshi Mackenzie Self - patient is the insured Medical (General) History Medical History History ICD Code Anxiety Arthritis Back,Hip,and Knee pain CAD (Cholesterol) Hiatal hernia High blood pressure Reflux ( GERD) Chicken pox Surgical History Surgery Date(Month/Year) hernia knee surgery, right Stent put in 07/05
--- OUTSIDE RECORDS SUMMARY | 2024-12-12 16:53 | XMS_ITS | Patient Health Record ---
Author Organization [facility] Address [address] [place] [id number] Care Team Providers Care Client Support Consultant Name Role Phone Danny (RETIRED) Osorio BENSON Primary Care Provider Unavailable Jono Lay Jr Unavailable [phone] Allergies No Known Allergies Reason For Referral No Information Medications Medication [...] Oral for 30 Act mariam Nitroglycerin Active Immunizations Vaccine Route Administration Date Status Comme nts Influenza Unknown 02/16/2017 Administered Influenza Unknown 01/16/2022 Administered Problems Problem Type SNOMED Code ICD Code Onset Dates Problem Status W/U Status Risk Notes Problem 836903843 Colon cancer screening (Z12.11) Active confirmed Problem 514644773 Personal history of colonic polyps (Z86.010) Active confirmed Problem Gastroesophageal reflux disease (K21.9) Active confirmed Problem 623381250 Gastroesophageal reflux disease without esophagitis (K21.9) Active confirmed Problem 064520747 Long-term use of aspirin therapy (Z79.82) Active confirmed Problem 12126076 Constipation, unspecified constipation type (K59.00) Active confirmed Plan Of Treatment Future Test Test Name Order Date COLONOSCOPY 09/16/2011 UPPER GI ENDOSCOPY 09/29/2017 COLONOSCOPY 09/29/2017 UPPER GI ENDOSCOPY 05/20/2022 COLONOSCOPY 05/20/2022 COLONOSCOPY 09/29/2023 Insurance Providers Payer Name Payer Address Payer Phone Subscriber Number Group Number Insured Name Patient Relationship to Insured Coverage Start Date Coverage End Date MEDICARE OF [place] [address] [facility] [place] [address] [phone] [id number] JAK RINALDI Self - patient is the insured MED[employer] ATT[employer] CLAIMS [address] [place] [address] [id number] JAK RINALDI Self - patient is the insured Medical (General) History Medical History History ICD Code Hyperlipidemia hypertension [...]
== END 2024-12-12 16:46 | disposition home or self-care (01) ==
LOC: HO.HMCHD 15:45
PROVIDERS: PCP Family Medicine; Visit Provider Physician Assistant
DX: R42 Dizziness and giddiness (principal); M25.561 Pain in right knee; M79.661 Pain in right lower leg; I10 Essential (primary) hypertension; I87.2 Venous insufficiency (chronic) (peripheral); F41.0 Panic disorder [episodic paroxysmal anxiety]

== ENCOUNTER → 2024-12-12 15:44 | Outpatient (BNVA) | payer MEDICARE, SELFPAY | PROVIDERS: PCP Family Medicine; Visit Provider Physician Assistant | DX: Z76.89 Persons encountering health services in other specified circumstances (principal); R42 Dizziness and giddiness; M25.561 Pain in right knee; M79.661 Pain in right lower leg; I10 Essential (primary) hypertension; I87.2 Venous insufficiency (chronic) (peripheral); F41.0 Panic disorder [episodic paroxysmal anxiety]; J44.9 Chronic obstructive pulmonary disease, unspecified; I25.10 Atherosclerotic heart disease of native coronary artery without angina pectoris; E78.5 Hyperlipidemia, unspecified; F32.A Depression, unspecified; N40.0 Benign prostatic hyperplasia without lower urinary tract symptoms; K21.9 Gastro-esophageal reflux disease without esophagitis; Z79.899 Other long term (current) drug therapy; Z13.39 Encounter for screening examination for other mental health and behavioral disorders; Z13.30 Encounter for screening examination for mental health and behavioral disorders, unspecified | CPT/HCPCS: 96127; 99202 ==

== ENCOUNTER 2024-12-13 14:51 | Outpatient (REF) | payer MEDICARE, SELFPAY ==
--- OUTSIDE RECORDS SUMMARY | 2008-09-13 11:00 | XMS_ITS | Continuity of Care Document ---
Author Name [facility] Organization [facility] Care Team Providers Care Anodiser Name Role Phone [facility] Unavailable Unavailable Problems Combined list of problems from Department of Defense and Veterans Affairs facilities. It does not include entries that were removed or entered in error. Problem Status Onset Date Problem Type Date of Resolution Comments Source Dermatitis or Eczema * (ICD-9-CM 692.9) Active Condition [facility] Hyperlipidemia * (ICD-9-CM 272.4) Active Condition [facility] Hypertension * (ICD-9-CM 401.9) Active Condition [facility] [place] [facility] Immunizations Combined list of available immunizations from the Department of Defense and Veterans Affairs facilities. Immunization Series Date Given Administered By Site Reaction Lot Number CVX Code Drug Service Center Appraiser Status Comments Source FLU,3 YRS (HISTORICAL) 2007 88 complet ed [facility] [place] [facility] Social History Combined list of available smoking, tobacco, and other social history from Department of Defense and Veterans Affairs facilities. Social History Type Response Date Comment Source Tobacco smoking status NCIS QUIT TOBACCO USE 1-7 YEARS AGO 09/13/2008 [facility] History of tobacco use QUIT TOBACCO USE 1-7 YEARS AGO 09/13/2008 Quit smoking about 5-6 years ago. 1 1/2- 2 PPD x 30 years [facility]
--- OUTSIDE RECORDS SUMMARY | 2023-10-11 09:40 | XMS_ITS ---
Author Organization [facility] Address [address] [place] [address] Care Team Providers Care Field Rep Name Role Phone Danny (RETIRED) , Osorio Primary Care Provider Jono Livingston Jr REASON FOR VISIT screening Encounters Encounter Location Date Provider Diagnosis [facility] [place] [address] [place], [place] [phone] 10/11/2023 Jono Lay Jr Plan Of Treatment No Information Progress Notes * JAK RINALDI ADOB: [birth year] (74 yo M)Acc No.[id number]:10/11/2023 COLON WITH MAC Patient: JAK GUZMÁN Provider: Fritz Lay MD :1950 A ge:73 Y S ex:Male Date:10/11/2023 Address:[address] [place], [place] [phone] Pcp:Osorio Delgado (RETIRED) MD Subjective: * Chief Complaints: * 1 . Screening. * Medical History: Objective: * Vitals: Assessment: Plan: * Treatment: * * The named appointment provid er may or may not be the originator of this progress note, and it is not deemed complete until electronically signed by the appointment provider. Sign off status: Pending * Provider: Fritz Lay MD Date: 10/11/2023 Generated for Printi ng/Faxing/eTransmitting on: 12/13/2024 03:32 PM EDT
--- OUTSIDE RECORDS SUMMARY | 2023-10-18 10:10 | XMS_ITS ---
Author Organization [facility] Address [address] [place] [address] Care Team Providers Care Telecommunications Network Engineer Name Role Phone Danny (RETIRED) , Osorio Primary Care Provider Unavailable Jono Lay Jr Unavailable REASON FOR VISIT screening Encounters Encounter Location Date Provider Diagnosis [facility] [place] [address] [place] [id number] 10/18/2023 Jono Lay Jr Encounter for screening colonoscopy Z12.11 and Personal history of colonic polyps Z86.010 Assessments Encounter Date Diagnosis (ICD Code) Assessment Notes Treatment Notes Treatment Clinical Notes Section Notes 10/18/2023 Encounter for screening colonoscopy (ICD-10 - Z12.11) 10/18/2023 Personal history of colonic polyps (ICD-10 - Z86.010) Plan Of Treatment No Information Progress Notes * NIMCO, JAK ADOB: [birth year] (74 yo M)Acc No.[id number]:10/18/2023 COLON WITH MAC Patient: JAK GUZMÁN Provider: Fritz Lay MD :1950 A ge:73 Y S ex:Male Date:10/18/2023 Address:[address] [place] [address] [id number] Pcp:Osorio Delgado (RETIRED) MD Subjective: * Chief Complaints: * 1 . Screening. * Medical History: Objective: * Vitals: Assessment: * Assessment: 1. E ncounter for screening colonoscopy - Z12.11 (Primary) 2 . P ersonal history of colonic polyps - Z86.010 Plan: * Treatment: * Procedure Codes: G 0105 COLOREC CANCR SCR; COLNSCPY HI RISK, 29921 DIAGNOSTIC COLONOSCOPY, Modifiers: 53 , 0529F INTRVL [...] 10/18/2023 Generated for Nanci carter/Elo/Rowenaitting on: 0 12/13/2024 03:32 PM EDT
--- NOTE | ~2024-12-13 | XR_ITS ---
EXAMINATION: XR KNEE, RIGHT CLINICAL INFORMATION: M25.561 - Pain in right knee COMPARISON: None available. TECHNIQUE: Three views of the right knee. FINDINGS: There is no joint effusion. There is mild narrowing of the medial joint space greater than the lateral. Patellofemoral joint spaces preserved. There are small osteophytes involving patella, lateral femoral condyle, and intercondylar spines. Vascular calcification is evident in the distal femoral and popliteal artery. XR/XR knee RT 3V IMPRESSION: Mild changes consistent with osteoarthritis. Electronically signed by: Kristian Payne MD 12/13/2024 03:40 PM EDT
--- OUTSIDE RECORDS SUMMARY | 2024-12-13 15:32 | XMS_ITS | Patient Health Record ---
Author Organization [facility] [place] Address [address] [place] [address] Care Team Providers Care Oracle Programmer Analyst Name Role Phone Osorio Delgado MD Primary Care Provider Shmuel Villarreal Unavailable [phone] Reason For Referral No Information Medications Medication [...] Problem Status W/U Status Risk Notes Problem Hallux rigidus, left foot (M20.22) Active confirmed Problem Acquired hallux rigidus (0281417) Hallux rigidus, right foot (M20.21) Active confirmed Plan Of Treatment Pending Test Test Name Order Date X ray : Foot, left 3V 03/28/2019 Insurance Providers Payer Name Payer Address Payer Phone Subscriber Number Group Number Insured Name Patient Relationship to Insured Coverage Start Date Coverage End Date Medicare National Govt Svcs Inc [address] [place] [address] [id number] Yoshi Mackenzie Self - patient is the insured Med[employer] Blue Shield [address] [place] [address] [phone] [id number] Yoshi Mackenzie Self - patient is the insured Medical (General) History Medical History History ICD Code Anxiety Arthritis Back,Hip,and Knee pain CAD (Cholesterol) Hiatal hernia High blood pressure Reflux ( GERD) Chicken pox Surgical History Surgery Date(Month/Year) hernia knee surgery, right Stent put in 07/05
--- OUTSIDE RECORDS SUMMARY | 2024-12-13 15:32 | XMS_ITS | Patient Health Record ---
Author Organization [facility] Address [address] [place] [address] Care Team Providers Care Energy Professional Name Role Phone Danny (RETIRED) Osorio BENSON Primary Care Provider Unavailable Jono Lay Jr Unavailable [phone] Allergies No Known Allergies Reason For Referral [...] Problem Status W/U Status Risk Notes Problem 215118088 Colon cancer screening (Z12.11) Active confirmed Problem 919290136 Personal history of colonic polyps (Z86.010) Active confirmed Problem Gastroesophageal reflux disease (K21.9) Active confirmed Problem 931223740 Gastroesophageal reflux disease without esophagitis (K21.9) Active confirmed Problem 964725955 Long-term use of aspirin therapy (Z79.82) Active confirmed Problem 97424827 Constipation, unspecified constipation type (K59.00) Active confirmed Plan Of Treatment Future Test Test Name Order Date COLONOSCOPY 09/16/2011 UPPER GI ENDOSCOPY 09/29/2017 COLONOSCOPY 09/29/2017 UPPER GI ENDOSCOPY 05/20/2022 COLONOSCOPY 05/20/2022 COLONOSCOPY 09/29/2023 Insurance Providers Payer Name Payer Address Payer Phone Subscriber Number Group Number Insured Name Patient Relationship to Insured Coverage Start Date Coverage End Date MEDICARE OF [place] [address] [facility] [place] [place] [address] [id number] JAK RINALDI Self - patient is the insured MEDEX ATTN CLAIMS [address] [place] [address] [id number] JAK RINALDI Self - patient is the [...]
== END 2024-12-13 14:52 | disposition home or self-care (01) ==
LOC: HO.XRAY 14:51
PROVIDERS: PCP Physician Assistant; Visit Provider Physician Assistant
DX: M25.561 Pain in right knee (principal); M79.661 Pain in right lower leg
CPT/HCPCS: 73562

== ENCOUNTER → 2024-12-13 14:57 | Outpatient (BNV) | payer MEDICARE, SELFPAY | PROVIDERS: PCP Physician Assistant; Visit Provider Radiology Diagnostic Radiology | DX: M25.561 Pain in right knee (principal) | CPT/HCPCS: 73562 ==

== ENCOUNTER 2024-12-18 15:43 | Outpatient (AMB) | payer MEDICARE, SELFPAY ==
--- OUTSIDE RECORDS SUMMARY | 2008-09-13 11:00 | XMS_ITS | Continuity of Care Document ---
Author Name [facility] Organization [facility] Care Team Providers Care Audio Production Instructor Name Role Phone [facility] Unavailable Unavailable Problems Combined list of problems from Department of Defense and Veterans Affairs facilities. It does not include entries that were removed or entered in error. Problem Status Onset Date Problem Type Date of Resolution Comments Source Dermatitis or Eczema * (ICD-9-CM 692.9) Active Condition [facility] Hyperlipidemia * (ICD-9-CM 272.4) Active Condition [facility] Hypertension * (ICD-9-CM 401.9) Active Condition [facility] [place] [facility] Immunizations Combined list of available immunizations from the Department of Defense and Veterans Affairs facilities. Immunization Series Date Given Administered By Site Reaction Lot Number CVX Code Drug Scarf And Anneal Operator Status Comments Source FLU,3 YRS (HISTORICAL) 2007 88 complet ed [facility] Social History Combined list of available smoking, tobacco, and other social history from Department of Defense and Veterans Affairs facilities. Social History Type Response Date Comment Source Tobacco smoking status NCIS QUIT TOBACCO USE 1-7 YEARS AGO 09/13/2008 [facility] History of tobacco use QUIT TOBACCO USE 1-7 YEARS AGO 09/13/2008 Quit smoking about 5-6 years ago. 1 1/2- 2 PPD x 30 years [facility]
--- NOTE | 2024-12-18 15:55 | A.OFFPC_ITS ---
Vital Signs 12/18/24 16:01 Height 5 ft 11 in Weight 130.181 kg BMI 40.0 BP 122/84 Respiration 18 Pulse 68 Pulse Source Pulse Oximeter Temp 97.8 F Temp Source Temporal Artery Scan Pulse Oximetry (%) 97 Oxygen Delivery Method Room Air Intake Visit Reasons: 1 week BP f/u Perpetual Inventory Clerk Required: No Accompanied by: self Allergies No Known Allergies (No Known Allergies*) Allergy (Verified 12/18/24 15:55) Medication List - Last Reconciled 12/18/24 by GERMAINE Yin amlodipine 5 mg PO DAILY ammonium lactate 12% 1 appl topical BID aspirin 81 mg PO DAILY cholecalciferol (vitamin D3) 25 mcg PO DAILY clonazepam 1 mg PO TID 30 days compr.stocking,knee,long,x-lrg As directed escitalopram oxalate 10 mg (1/2 x 20 mg) PO DAILY fenofibrate mg PO furosemide (Lasix) 20 mg PO DAILY gabapentin 300 mg PO DAILY isosorbide mononitrate ER 30 mg PO DAILY magnesium oxide 500 mg PO DAILY nitroglycerin 0.4 mg sublingual Q5M PRN omeprazole 40 mg PO BID oxybutynin chloride ER mg PO primidone orally; 1 tab in the am 3 tabs bedtime 3 months propranolol 60 mg PO BID rosuvastatin 40 mg PO DAILY tamsulosin 0.4 mg PO BEDTIME 90 days Held on 12/12/24. Instructions: Doctor's Order trazodone 50 mg (1/2 x 100 mg) PO BEDTIME 90 days Tobacco use date assessed: 12/12/24 Dental Screening Dental Screen Date: 12/12/24 HPI HPI Comments History of Present Illness Details 74-year-old male with history of hyperte nsion, COPD, venous insufficiency, coronary artery disease, hyperlipidemia, major depressive disorder and anxiety, GERD, DANK presents to the office for follow-up. Orthostatic hypotension-had been reporting significant lightheadedness with position changes, primarily sitting to standing. He was also hypotensive. Tamsulosin and amlodipine were discontinued. Blood pressure is 122/84 today. He reports very occasional positional lightheadedness which is not overly bothersome and is fleeting. He does not feel like he is going to pass out or like his balance is off. He does continue on Imdur 30 mg ER given history of CAD. No chest pain, palpitations, syncope, dyspnea. Orthostatics repeated in the office today: Layin/71-HR 60 Sittin/65-HR 64 (asymptomatic) Standin/60-HR 66 very brief lightheadedness lasting only several sec Major depressive disorder/anxiety-she is taking clonazepam 1 mg t.i.d. as well as propranolol 60 mg b.i.d., and escitalopram 10 mg daily. Discussed with psychiatrist, Dr. Navarro, who does not feel these medications are related to the positional lightheadedness. Reports he refuses changes to his psychiatric medications, including clonazepam. BLE edema- r/t venous insufficiency. He has not yet gotten the compression stockings that were ordered at last visit. He would like to start diuretic if possible ROS: See HPI EXAM: Constitutional - Awake and Alert, No apparent distress Eyes - PERRL Cardiovascular - S1S2, RRR, 2+ edema intact Respiratory - Normal lung expansion, Normal respiratory effort, No respiratory distress, CTA bilaterally Extremities - no calf tenderness bilaterally, no swelling Skin - Warm/Dry . Venous stasis dermatitis bilateral lower extremities Neurological - Alert & oriented x3, CN II-XII Psychological - flat affect [facility] Medical History (Updated 12/18/24 @ 17:38 by GERMAINE Yin) Osteoarthritis of right knee Venous insufficiency Positional lightheadedness Benign essential tremor Post traumatic stress disorder (PTSD) Panic disorder Other and unspecified hyperlipidemia GERD (gastroesophageal reflux disease) Essential hypertension Atherosclerotic cardiovascular disease Surgical History History of colonoscopy (~10/18/23) History of surgery on lower extremity Hx of decompression of ulnar nerve History of hernia repair Stented coronary artery History of cardiac catheterization (~06/19/19) Family History Father Stroke Mother No problems noted. Social History Housing: House Alcohol intake: former Patient Tobacco Use Status: Former Tobacco user (Quite in 2004) e-Cigarette/Vaping Use: Never Used service: Yes Current occupational status: retired Cognitive needs: No Hearing needs: No Vision needs: Yes ([place]) Questionnaire Thrive Questionnaire Date Thrive assessed: 12/12/24 AARON-7 AMB Questionnaire AARON-7 Date AARON - 7 assessed: 12/12/24 Source: Developed by Drs. Chilo Piper, Santa Robbins, Andry Mclaughlin and colleagues, with an educational nadira from [facility]. Physical exam (Primary Care) Vital Signs: Last Vital Signs Temp 97.8 F 12/18/24 16:01 Pulse 68 12/18/24 16:01 Resp 18 12/18/24 16:01 BP 122/84 12/18/24 16:01 Pulse Ox 97 12/18/24 16:01 Oxygen Delivery Method Room Air 12/18/24 16:01 BMI result Body Mass Index 40.0 Tobacco/Smoking Status: Tobacco use Status Tobacco use date assessed 12/12/24 12/18/24 16:05 Patient Tobacco Use Status Former Tobacco user (Quite 12/18/24 16:05 in 2004) e-Cigarette/Vaping Use Never Used 12/18/24 16:05 Thrive Assessment: Date of Thrive Assessment Date Thrive assessed 12/12/24 12/18/24 16:05 Coding Level of Care Code Est Pt Level 4 (00478) Complex EM visit Add On G2211 Diagnoses Positional lightheadedness R42 Venous insufficiency I87.2 Essential hypertension I10 Lower extremity edema R60.0 Assessment & Plan Assessment & Plan (1) Positional lightheadedness: Code(s): R42 - Dizziness and giddiness Category: Medical Plan: Much improved and really not bothersome any longer to the patient. Will continue off of amlodipine as well as tamsulosin. Blood pressure is improved, no ongoing hypotension (2) Venous insufficiency: Code(s): I87.2 - Venous insufficiency (chronic) (peripheral) Category: Medical Plan: Recommend leg elevation, compression stockings reordered. Low-sodium diet (3) Essential hypertension: Code(s): I10 - Essential (primary) hypertension Category: Medical Plan: No ongoing hypotension. May continue Imdur 30 mg daily. Discontinue amlodipine. Continue propranolol (4) Lower extremity edema: Code(s): R60.0 - Localized edema Category: Medical Plan: Related to venous insufficiency as well as morbid obesity. Weight loss efforts recommended. Compression stockings ordered. Will try low-dose furosemide. Discussed that this could cause additional lightheadedness, should this occur, discontinue the Lasix and contact the office. Follow-up in the lab in 1-2 weeks to check renal function electrolyte levels Medications: New furosemide (Lasix) 20 mg PO DAILY 90 tabs 1RF Refilled compr.stocking,knee,long,x-lrg As directed 12 ea 0RF I87.2 - Venous insufficiency (chronic) (peripheral), R60.9 - Edema, unspecified Discontinued tamsulosin Discontinued Reason: Doctor's Order 0.4 mg PO BEDTIME 90 days 90 caps 1RF Patient Instructions: [facility] [employer] [facility] [phone] We will call Ultrasound to see whats going on with the study Check your labs in 1-2 weeks after starting furosemide (water pill)
[2024-12-18 16:01] VITALS: BP 122/84; PULSE 68; RESP 18; TEMP 36.6; O2SAT 97; BMI 40.0
== END 2024-12-18 16:39 | disposition home or self-care (01) ==
LOC: HO.HMCHD 15:43
PROVIDERS: PCP Family Medicine; Visit Provider Physician Assistant
DX: R42 Dizziness and giddiness (principal); I87.2 Venous insufficiency (chronic) (peripheral); I10 Essential (primary) hypertension; R60.0 Localized edema

== ENCOUNTER → 2024-12-18 15:43 | Outpatient (BNVA) | payer MEDICARE, SELFPAY | PROVIDERS: PCP Family Medicine; Visit Provider Physician Assistant | DX: R42 Dizziness and giddiness (principal); I87.2 Venous insufficiency (chronic) (peripheral); I10 Essential (primary) hypertension; R60.0 Localized edema | CPT/HCPCS: 99212 ==

== ENCOUNTER 2025-01-16 13:42 | Outpatient (AMB) | payer MEDICARE, SELFPAY ==
--- NOTE | 2025-01-16 13:50 | MHC.PC.OV ---
Vital Signs 01/16/25 13:56 01/16/25 15:52 01/16/25 15:52 01/16/25 15:52 Height 5 ft 11 in Weight 128.82 kg BMI 39.6 BP 97/59 L 106/62 97/50 L 80/48 L Pulse 65 63 66 67 Pulse Source Pulse Oximeter Temp 97.3 F Temp Source Temporal Artery Scan Pulse Oximetry (%) 94 Intake Visit Reasons: RX Changes/ BP Memory Care Program Director Required: No Accompanied by: Self / Same As Patient Allergies No Known Allergies (No Known Allergies*) Allergy (Verified 01/16/25 15:44) Medication List - Last Reconciled 01/16/25 by GERMAINE Yin alfuzosin ER 10 mg PO DAILY 30 days ammonium lactate 12% 1 appl topical BID aspirin 81 mg PO DAILY cholecalciferol (vitamin D3) 25 mcg PO DAILY clonazepam 1 mg PO TID 30 days compr.stocking,knee,long,x-lrg As directed escitalopram oxalate 10 mg (1/2 x 20 mg) PO DAILY fenofibrate mg PO fesoterodine ER 8 mg PO DAILY 90 days furosemide (Lasix) 20 mg PO DAILY Held on 01/16/25. Instructions: Doctor's Order gabapentin 300 mg PO DAILY isosorbide mononitrate ER 30 mg PO DAILY magnesium oxide 500 mg PO DAILY midodrine 5 mg PO TID nitroglycerin 0.4 mg sublingual Q5M PRN omeprazole 40 mg PO BID oxybutynin chloride ER mg PO primidone orally; 1 tab in the am 3 tabs bedtime 3 months propranolol 30 mg (1/2 x 60 mg) PO BID rosuvastatin 40 mg PO DAILY trazodone 50 mg (1/2 x 100 mg) PO BEDTIME 90 days Tobacco use date assessed: 12/12/24 Dental Screening Dental Screen Date: 12/12/24 HPI HPI Comments History of Present Illness Details 74-year-old male with history of hypertension, COPD, venous insufficiency, coronary artery disease, hyperlipidemia, major depressive disorder and anxiety, GERD, DANK presents to the office for follow-up. He was seen in the office several weeks ago with orthostatic hypotension. He is on multiple medications that could be causing dizziness. He is on clonazepam 1 mg t.i.d.. Discussed this with his psychiatrist, less likely to be causing an orthostatic hypotension. He had not syncopized. Both tamsulosin and amlodipine were discontinued. Blood pressures had stabilized. He was continued on Imdur 30 mg ER given history of CAD. He also continues on propranolol 60 mg twice daily and primidone which he is taking for essential tremor. He is also on Lasix 20 mg daily due to lower extremity edema. No chest pain, palpitations, syncope, dyspnea. He states that currently seated in the chair, he is asymptomatic but as soon as he changes position he becomes lightheaded. He states while waiting for the elevator, he was so lightheaded he felt confused and was unable to push the button and there is transient blurred vision during episodes. He does drink greater than 64 oz of water in a day. No known history of dysrhythmia. Last EKG showed sinus rhythm with PACs, rate 64. No significant ST/T-wave abnormality Orthostatics repeated in the office today: Layin/62 HR 63 Sittin/50 HR 66 Standin/48 HR 67 (symptomatic) Major depressive disorder/anxiety-she is taking clonazepam 1 mg t.i.d. as well as propranolol 60 mg b.i.d., and escitalopram 10 mg daily. Discussed with psychiatrist, Dr. Navarro, who does not feel these medications are related to the positional lightheadedness. Reports he refuses changes to his psychiatric medications, including clonazepam. BLE edema- r/t venous insufficiency. Awaiting prescription for compression stockings. He is on Lasix 20 mg daily. BPH-tamsulosin was discontinued and was started on alfuzosin by Dr. Garcia. Continues on fesoterodine and oxybutynin as well COPD-no recent exacerbation. Not on inhalers Venous insufficiency-on Lasix ROS: see hpi EXAM: Constitutional - Awake and Alert, No apparent distress Eyes - PERRL Cardiovascular - S1S2, RRR, No edema Respiratory - Normal lung expansion, Normal respiratory effort, No respiratory distress, CTA bilaterally Extremities - no calf tenderness bilaterally, no swelling Skin - Warm/Dry Neurological - Alert & oriented x3. CN II-XII in tact Psychological - Appropriate affect [facility] Medical History (Updated 01/16/25 @ 14:25 by GERMAINE Yin) Osteoarthritis of right knee Venous insufficiency Positional lightheadedness Benign essential tremor Post traumatic stress disorder (PTSD) Panic disorder Other and unspecified hyperlipidemia GERD (gastroesophageal reflux disease) Essential hypertension Atherosclerotic cardiovascular disease Surgical History History of colonoscopy (~10/18/23) History of surgery on lower extremity Hx of decompression of ulnar nerve History of hernia repair Stented coronary artery History of cardiac catheterization (~06/19/19) Family History Father Stroke Mother No problems noted. Social History Housing: House Alcohol intake: former Patient Tobacco Use Status: Former Tobacco user (Quite in 2004) e-Cigarette/Vaping Use: Never Used Do you have a plan to hurt others: No Plan service: Yes Current occupational status: retired Cognitive needs: No Hearing needs: No Vision needs: Yes ([place]) Questionnaire Thrive Questionnaire Date Thrive assessed: 12/12/24 AARON-7 AMB Questionnaire AARON-7 Date AARON - 7 assessed: 12/12/24 Source: Developed by Drs. Chilo Piper, Santa Robbins, Andry Mclaughlin and colleagues, with an educational nadira from [employer]. Physical exam (Primary Care) Vital Signs: Last Vital Signs Temp 97.3 F 01/16/25 13:56 Pulse 67 01/16/25 15:52 BP 80/48 L 01/16/25 15:52 Pulse Ox 94 01/16/25 13:56 BMI result Body Mass Index 39.6 Tobacco/Smoking Status: Tobacco use Status Tobacco use date assessed 12/12/24 01/16/25 13:50 Patient Tobacco Use Status Former Tobacco user (Quite 01/16/25 13:50 in 2004) e-Cigarette/Vaping Use Never Used 01/16/25 13:50 Thrive Assessment: Date of Thrive Assessment Date Thrive assessed 12/12/24 01/16/25 13:50 Coding Level of Care Code Est Pt Level 4 (59054) Complex EM visit Add On G2211 Diagnoses Orthostatic hypotension I95.1 Panic disorder F41.0 Essential hypertension I10 Venous insufficiency I87.2 Assessment & Plan Assessment & Plan (1) Orthostatic hypotension: Code(s): I95.1 - Orthostatic hypotension Category: Medical Plan: Present to the ED for IV fluids given ongoing orthostatic hypotension with significant symptoms. Expect a call placed. No syncope. We will also prescribe midodrine to be taken 3 times daily for blood pressure support. Discontinue Lasix. Decrease propranolol to 30 mg twice daily. Question if this is autonomic. Further workup to be completed following hospital visit (2) Panic disorder: Code(s): F41.0 - Panic disorder [episodic paroxysmal anxiety] Category: Medical Plan: Continue to strongly recommend lower dose of clonazepam though this is likely not the cause of an orthostatic hypotension. Continue following with Psychiatry (3) Essential hypertension: Code(s): I10 - Essential (primary) hypertension Category: Medical Plan: Medication changes as above. Continue Imdur, reduced dose of propranolol (4) Venous insufficiency: Code(s): I87.2 - Venous insufficiency (chronic) (peripheral) Category: Medical Plan: Hold Lasix Plan Follow-up in the office for posterior evaluation Medications: New midodrine do not give last dose of day after 6PM or within 4 hrs of bedtime 5 mg PO TID 270 tabs 0RF Changed From propranolol 60 mg PO BID To propranolol 30 mg (1/2 x 60 mg) PO BID 180 tabs 0RF On Hold furosemide (Lasix) Hold Comment: Doctor's Order 20 mg PO DAILY 90 tabs 1RF Patient Instructions: Decrease propranolol to 30mg twice daily (can current pill in half until new supply come in) Now midodrine ordered to be taken 3 times daily to help with the orthostatic hypotension Recommend holding Lasix/water pill for now. Can consider resuming in the future
[2025-01-16 13:56] VITALS: BP 97/59; PULSE 65; TEMP 36.3; O2SAT 94; BMI 39.6
[2025-01-16 15:52] VITALS: BP 106/62; BP 80/48; BP 97/50; PULSE 63; PULSE 66; PULSE 67
== END 2025-01-16 14:47 | disposition home or self-care (01) ==
LOC: HO.HMCHD 13:43
PROVIDERS: PCP Physician Assistant; Visit Provider Physician Assistant
DX: I95.1 Orthostatic hypotension (principal); F41.0 Panic disorder [episodic paroxysmal anxiety]; I10 Essential (primary) hypertension; I87.2 Venous insufficiency (chronic) (peripheral)

== ENCOUNTER → 2025-01-16 13:42 | Outpatient (BNVA) | payer MEDICARE, SELFPAY | PROVIDERS: PCP Physician Assistant; Visit Provider Physician Assistant | DX: I95.1 Orthostatic hypotension (principal); F41.0 Panic disorder [episodic paroxysmal anxiety]; I10 Essential (primary) hypertension; I87.2 Venous insufficiency (chronic) (peripheral); Z87.891 Personal history of nicotine dependence; Z79.899 Other long term (current) drug therapy | CPT/HCPCS: 99212 ==

== ENCOUNTER 2025-01-16 14:55 | Emergency (ER) | payer MEDICARE, SELFPAY ==
[2025-01-16] VITALS (9 sets, daily range): BP systolic 119–158; BP diastolic 58–77; PULSE 46–81; RESP 16–18; TEMP 36.6–36.9; O2SAT 93–99; BMI 39.0
--- NOTE | 2025-01-16 15:45 | ECG_ITS ---
Test Reason : WEAKNESS Blood Pressure : */* mmHG Vent. Rate : 56 BPM Atrial Rate : 56 BPM P-R Int : 174 ms QRS Dur : 84 ms QT Int : 456 ms P-R-T Axes : 10 -24 62 degrees QTcB Int : 440 ms Sinus bradycardia Minimal voltage criteria for LVH, may be normal variant ( R in aVL ) Cannot rule out Anterior infarct , age undetermined Abnormal ECG When compared with ECG of 15-Nov-2024 15:35, Premature atrial complexes are no longer Present Referred By: Janae Saleem Electronically Signed By: RAJESH ROGERS
--- NOTE | 2025-01-16 15:45 | ED.GENADULT ---
HPI - General Adult General Chief complaint: General Medical Stated complaint: low BP Time Seen by Provider: 01/16/25 20:11 Source: patient Mode of arrival: ambulatory Limitations: no limitations History of Present Illness ED Provider: Dr. Bang HPI narrative: 74-year-old male presented hospital today for dizziness and near syncopal episode. Patient stated that this has been going on for was quite some time. He went to his primary care doctor who instruct him come to the ER for further evaluation. Denies any shortness of breath denies any chest pain. Denies any recent illness. Patient stated that when he ambulates he does have these presyncopal episode and he was about to pass out. Patient stated that this is noticeable when he changes position. Related Data Home Medications ?Medication ?Instructions ?Recorded ?Confirmed cholecalciferol (vitamin D3) 25 25 mcg PO DAILY 04/01/20 01/16/25 mcg (1,000 unit) capsule isosorbide mononitrate 30 mg 30 mg PO DAILY 04/01/20 01/16/25 tablet,extended release 24 hr fenofibrate 160 mg tablet mg PO 12/12/23 01/16/25 gabapentin 600 mg tablet 300 mg PO DAILY 11/15/24 01/16/25 oxybutynin chloride 10 mg mg PO 12/12/24 01/16/25 tablet,extended release 24 hr aspirin 81 mg tablet 81 mg PO DAILY 12/18/24 01/16/25 magnesium oxide 500 mg PO DAILY 12/18/24 01/16/25 Previous Rx's ?Medication ?Instructions ?Recorded nitroglycerin 0.4 mg sublingual 0.4 mg sublingual Q5M PRN chest 11/15/22 tablet pain #30 tabs rosuvastatin 40 mg tablet 40 mg PO DAILY #90 tabs 04/20/24 trazodone 100 mg tablet 50 mg (1/2 x 100 mg) PO BEDTIME 90 06/18/24 days #45 tabs clonazepam 1 mg tablet 1 mg PO TID 30 days #90 tabs 10/21/24 escitalopram oxalate 20 mg tablet 10 mg (1/2 x 20 mg) PO DAILY #90 11/15/24 tabs primidone 50 mg tablet See Rx Instructions PO .COMPLEX 3 11/15/24 months #360 tabs omeprazole 40 mg capsule,delayed 40 mg PO BID #60 caps 11/27/24 release ammonium lactate 12 % lotion 1 appl topical BID #400 grams 12/12/24 compr.stocking,knee,long,x-lrg #12 ea 12/18/24 furosemide 20 mg tablet (Lasix) 20 mg PO DAILY #90 tabs 12/18/24 Held on 01/16/25. Instructions: Doctor's Order fesoterodine 8 mg tablet,extended 8 mg PO DAILY 90 days #90 tabs 12/28/24 release 24 hr alfuzosin 10 mg tablet,extended 10 mg PO DAILY 30 days #30 tabs 01/01/25 release 24 hr midodrine 5 mg tablet 5 mg PO TID #270 tabs 01/16/25 propranolol 60 mg tablet 30 mg (1/2 x 60 mg) PO BID #180 01/16/25 tabs fludrocortisone 0.1 mg tablet 0.1 mg PO DAILY 7 days #7 tabs 01/17/25 Allergies Allergy/AdvReac Type Severity Reaction Status Date / Time No Known Allergies (No Known Allergy Verified 01/16/25 15:44 Allergies*) Review of Systems Review of Systems: Pertinent review of systems as mentioned in HPI. All other system otherwise negative. [facility] Past Medical History [facility] Narrative: Medical history as mentioned in [facility] Medical History (Updated 01/17/25 @ 02:43 by Moriah Bang DO) Osteoarthritis of right knee Venous insufficiency Positional lightheadedness Benign essential tremor Post traumatic stress disorder (PTSD) Panic disorder Other and unspecified hyperlipidemia GERD (gastroesophageal reflux disease) Essential hypertension Atherosclerotic cardiovascular disease Surgical History History of colonoscopy (~10/18/23) History of surgery on lower extremity Hx of decompression of ulnar nerve History of hernia repair Stented coronary artery History of cardiac catheterization (~06/19/19) Family History Family History Father Stroke Mother No problems noted. Social History Social History Housing: House Alcohol intake: former Patient Tobacco Use Status: Former Tobacco user (Quite in 2004) Smoked in Last 30 Days: No e-Cigarette/Vaping Use: Never Used Use of substances other than those prescribed or required for medical reasons: No Advance Directives: No Advance Directives Information Provided: No Do you have a plan to hurt others: No Plan service: Yes Current occupational status: retired Cognitive needs: No Hearing needs: No Vision needs: Yes ([place]) Physical Exam ED Exam Exam: General: Pleasant, no distress, interacting appropriately Head: Normacephalic, atraumatic ENT: oral mucosa moist, neck supple, no tracheal deviation Cardiovascular: regular rate, regular rhythm, no murmurs, rubbing, gallops Respiratory: CTAB, no wheeze, rales, rhonchi Gastrointestinal: Soft, non distended, non tender, non guarding Extremities: Pitting edema lower extremities Neurological: Awake and alert, no facial droop noted Skin: Warm and dry Psychiatric: Appropriate mood and thoughts Vital Signs: Vital Signs - 24 hr 01/16/25 15:42 01/16/25 19:52 01/16/25 20:03 Temperature 98.4 F Pulse Rate 60 54 46 L Respiratory Rate 18 16 Blood Pressure 119/58 L 137/72 158/74 H Pulse Oximetry 95 99 Oxygen Delivery Method Room Air Room Air 01/16/25 20:05 01/16/25 20:07 01/16/25 21:33 Temperature Pulse Rate 51 53 50 Respiratory Rate Blood Pressure 141/68 H 130/71 154/74 H Pulse Oximetry Oxygen Delivery Method 01/16/25 21:35 01/16/25 21:37 01/16/25 23:15 Temperature 97.9 F Pulse Rate 70 61 81 Respiratory Rate 16 Blood Pressure 139/62 150/75 H 146/77 H Pulse Oximetry 93 Oxygen Delivery Method Room Air 01/17/25 00:01 01/17/25 00:05 01/17/25 00:08 Temperature Pulse Rate 48 L 50 50 Respiratory Rate Blood Pressure 170/68 H 177/79 H 166/72 H Pulse Oximetry Oxygen Delivery Method 01/17/25 03:21 Temperature 98 F Pulse Rate 48 L Respiratory Rate 16 Blood Pressure 173/73 H Pulse Oximetry 98 Oxygen Delivery Method Room Air BMI result Body Mass Index 39.0 Course Course Course Narrative: This is an RME: Additional HPI, ROS, PE not included below will be deferred to primary provider. RME assessment and note performed by: Janae Saleem PA-C This is a 74-year-old male, with a history of hypertension, orthostatic hypotension, who presents emergency department with concerns of low blood pressure. States that he is ?feeling weird? from sitting to standing. Dizziness is better when he is sitting. No nausea, vomiting, diarrhea, no shortness for breath, no chest pain. Plan: Labs, EKG, orthostatics Medications Administered Discontinued Medications Generic Name Dose Route Start Last Admin Trade Name Bere PRN Reason Stop Dose Admin Fludrocortisone Acetate 0.1 mg 01/16/25 21:40 01/16/25 22:44 Fludrocortisone Acetate 0.1 Mg Tablet PO 01/16/25 21:41 0.1 mg ONCE ONE Administration Lactated Ringer's 1,000 mls @ 999 mls/hr 01/16/25 20:15 01/16/25 21:31 Lr IV 01/16/25 21:15 Infused .Q1H1M GISELA Infusion Lactated Ringer's 1,000 mls @ 999 mls/hr 01/16/25 21:45 01/16/25 23:35 Lr IV 01/16/25 22:45 Infused .Q1H1M GISELA Infusion Medical Decision Making Medical Decision Making [facility] Narrative: This is a 74-year-old male presented hospital today for evaluation of presyncopal episode. . I suspect patient likely has orthostatic hypotension. Plan to give patient IV fluid. A basic lab work will be obtained including troponin. EKG will be obtained. We will plan to reassess patient afterward. EKG shows sinus bradycardia. No sign of heart block. Patient's CBC shows slight anemia at 12.8 no sign of leukocytosis, patient's chemistries unremarkable. Patient's troponin is negative. Patient was given 2 L IV fluid, and a dose of fludrocortisone. Patient was ambulate. He is asymptomatic when ambulating. At this time we will plan to discharge patient home course of fludrocortisone take until he follows with primary care doctor. He agrees and understands this plan all questions were addressed. Differential Diagnosis Differential Diagnoses: The differential diagnosis associated with the presentation includes Orthostasis hypotension, ACS, CAD, cardiac arrhythmia Admission/Observation Consideration of admission/observation: Escalation of care including admission/observation considered Lab Data [facility] Lab Attestation statement: I reviewed the patient's lab results. 01/16/25 16:41 01/16/25 16:41 Labs: Lab Results 01/16/25 Range/Units 16:41 WBC 8.0 (4.8-10.8) X10*3/uL RBC 4.11 L (4.60-5.80) X10*6/uL Hgb 12.8 L (14.0-18.0) g/dl Hct 36.7 L (42.0-52.0) % MCV 89.3 (80.0-98.0) fL MCH 31.1 (27.0-33.0) pg MCHC 34.9 (31.0-36.0) g/dl RDW 12.8 (11.0-16.0) % Plt Count 186 (160-400) X10*3/uL MPV 9.7 (9.4-12.4) fL Immature Gran % (Auto) 0.1 (0.0-0.4) % Neut % (Auto) 60.3 (45-73) % Lymph % (Auto) 26.9 (20-40) % [place] % (Auto) 8.0 (2-11) % Eos % (Auto) 4.3 H (0-4) % Baso % (Auto) 0.4 (0-2) % Lymph # (Auto) 2.2 (1.2-4.9) X10*3/uL [place] # (Auto) 0.6 (0.1-1.2) X10*3/uL Eos # (Auto) 0.3 (0.0-0.4) X10*3/uL Baso # (Auto) 0.0 (0.0-0.2) X10*3/uL Abs Immat Gran (auto) 0.01 (0.00-0.03) X10*3/uL Absolute Neuts (auto) 4.8 (2.0-8.3) x10*3/uL Absolute Nucleated RBC 0.000 (0.0-0.012) X10*3/uL Nucleated RBC % (auto) 0.0 (0.0-0.2) /100WBC Sodium 142 (135-145) mmol/L Potassium 4.2 (3.3-5.1) mmol/L Chloride 110 H (96-108) mmol/L Carbon Dioxide 26 (22-29) mmol/L Anion Gap 10 L (12-20) BUN 15 (9-16) mg/dL Creatinine 1.01 (0.5-1.4) mg/dL Estim Creat Clear Calc 89.7 Estimated GFR > 60 Random Glucose 103 (60-115) mg/dL Calcium 8.8 (8.4-10.2) mg/dL Magnesium 1.8 (1.6-2.6) mg/dL Total Bilirubin 0.3 (0.0-1.0) mg/dL Direct Bilirubin 0.2 (0.0-0.5) mg/dL AST 24 (5-37) U/L ALT 13 (0-40) U/L Alkaline Phosphatase 48 (39-117) U/L Troponin I High Sens < 2.7 (<3.5-35.0) ng/L Total Protein 6.4 L (6.5-8.0) g/dL Albumin 3.7 (3.5-5.0) g/dL Independent Interpretation I performed an independent interpretation of an: EKG Discharge Plan Discharge Clinical Impression: Orthostatic dizziness Patient Disposition: Home, Self-Care Instructions: Near Syncope (ED) Prescriptions: New fludrocortisone 0.1 mg tablet 0.1 mg PO DAILY 7 Days Qty: 7 0RF No Action rosuvastatin 40 mg tablet 40 mg PO DAILY Qty: 90 3RF clonazepam 1 mg tablet 1 mg PO TID 30 Days Qty: 90 2RF omeprazole 40 mg capsule,delayed release(DR/EC) 40 mg PO BID Qty: 60 1RF fesoterodine 8 mg tablet extended release 24 hr 8 mg PO DAILY 90 Days Qty: 90 1RF alfuzosin 10 mg tablet extended release 24 hr 10 mg PO DAILY 30 Days Qty: 30 1RF Rx Instructions: administer after the same meal each day cholecalciferol (vitamin D3) 25 mcg (1,000 unit) capsule 25 mcg PO DAILY isosorbide mononitrate 30 mg tablet extended release 24 hr 30 mg PO DAILY nitroglycerin 0.4 mg tablet, sublingual 0.4 mg sublingual Q5M PRN (Reason: chest pain) Qty: 30 5RF Rx Instructions: do not exceed 3 doses per episode gabapentin 600 mg tablet 300 mg PO DAILY trazodone 100 mg tablet 50 mg PO BEDTIME 90 Days Qty: 45 1RF oxybutynin chloride 10 mg tablet extended release 24hr PO ammonium lactate 12 % lotion 1 appl topical BID Qty: 400 1RF fenofibrate 160 mg tablet PO primidone 50 mg tablet See Rx Instructions PO .COMPLEX 90 Days Qty: 360 1RF Rx Instructions: orally; 1 tab in the am 3 tabs bedtime escitalopram oxalate 20 mg tablet 10 mg PO DAILY Qty: 90 3RF magnesium oxide 500 mg magnesium tablet 500 mg PO DAILY aspirin 81 mg tablet 81 mg PO DAILY furosemide [Lasix] 20 mg tablet 20 mg PO DAILY Qty: 90 1RF (DME) compr.stocking,knee,long,x-lrg Misc See Rx Instructions .Route Qty: 12 0RF Rx Instructions: As directed propranolol 60 mg tablet 30 mg PO BID Qty: 180 0RF midodrine 5 mg tablet 5 mg PO TID Qty: 270 0RF Rx Instructions: do not give last dose of day after 6PM or within 4 hrs of bedtime Interventions: ED Discharge Assessment Last Done: 01/17/25 03:21 Discharge Date/Time: 01/17/25 03:23 Print Language: Marshallese
[2025-01-16 16:48] LABS: MANUAL DIFF FLAG NO
[2025-01-16 16:52] LABS: Hematocrit 36.7 % (42.0-52.0); Hemoglobin 12.8 g/dl (14.0-18.0); Imm Gran Abs Auto 0.01 X10*3/uL (0.00-0.03); Imm Gran Pct Auto 0.1 % (0.0-0.4); Lymphocytes Absolute Auto 2.2 X10*3/uL (1.2-4.9); Mean Corpuscular HGB Conc 34.9 g/dl (31.0-36.0); Mean Corpuscular Hemoglobin 31.1 pg (27.0-33.0); Mean Corpuscular Volume 89.3 fL (80.0-98.0); NRBC Abs Auto 0.000 X10*3/uL (0.0-0.012); NRBC Pct Auto 0.0 /100WBC (0.0-0.2); Platelet Count 186 X10*3/uL (160-400); Red Blood Count 4.11 X10*6/uL (4.60-5.80); White Blood Count 8.0 X10*3/uL (4.8-10.8)
[2025-01-16 17:03] LABS: Alanine Aminotransferase 13 U/L (0-40); Albumin Level 3.7 g/dL (3.5-5.0); Alkaline Phosphatase 48 U/L (39-117); Anion Gap 10 (12-20); Aspartate Amino Transferase 24 U/L (5-37); Blood Urea Nitrogen 15 mg/dL (9-16); Calcium 8.8 mg/dL (8.4-10.2); Carbon Dioxide 26 mmol/L (22-29); Chloride 110 mmol/L (96-108); Creatinine Clr Calc Pharmacy 89.7; Estimated Glomerular Filt Rate > 60; Magnesium 1.8 mg/dL (1.6-2.6); Potassium 4.2 mmol/L (3.3-5.1); Sodium 142 mmol/L (135-145); Total Protein 6.4 g/dL (6.5-8.0)
[2025-01-16 17:11] LABS: Troponin-I High Sensitivity < 2.7 ng/L (<3.5-35.0)
[2025-01-16] MEDS: Lactated Ringers 1,000 ML 999 ML IV ×2 (20:30→22:27)
[2025-01-17 00:01] VITALS: BP 170/68; PULSE 48
[2025-01-17 00:05] VITALS: BP 177/79; PULSE 50
[2025-01-17 00:08] VITALS: BP 166/72; PULSE 50
[2025-01-17 03:21] VITALS: BP 173/73; PULSE 48; RESP 16; TEMP 36.6; O2SAT 98
== END 2025-01-17 03:23 | disposition home or self-care (01) ==
PROVIDERS: Physician Assistant Medical; Emergency Provider Student in an Organized Health Care Education/Training Program; PCP Physician Assistant
DX: R42 Dizziness and giddiness (principal); R00.1 Bradycardia, unspecified; I10 Essential (primary) hypertension; K21.9 Gastro-esophageal reflux disease without esophagitis; Z79.899 Other long term (current) drug therapy
CPT/HCPCS: 36415; 80048; 80076; 83735; 84484; 85025; 93005; 96360; 96361; 99284; 99285; J7120

== ENCOUNTER → 2025-01-16 15:45 | Outpatient (BNV) | payer MEDICARE, SELFPAY | PROVIDERS: Emergency Provider Student in an Organized Health Care Education/Training Program; PCP Physician Assistant; Visit Provider Internal Medicine | DX: R00.1 Bradycardia, unspecified (principal) | CPT/HCPCS: 93010 ==

== ENCOUNTER 2025-01-22 15:03 | Outpatient (AMB) | payer MEDICARE, SELFPAY ==
--- NOTE | 2025-01-22 15:05 | A.OFFVIS_ITS ---
Vital Signs 01/22/25 15:07 Height 5 ft 11 in Weight 289 lb 10.998 oz BMI 40.4 BP 106/60 Blood Pressure Location Lt brachial Position Sitting Pulse 59 Pulse Source Monitor Intake Visit Reasons: 1 year f/up Special Librarian Required: No Accompanied by: Self / Same As Patient Allergies No Known Allergies (No Known Allergies*) Allergy (Verified 01/16/25 15:44) Medication List - Last Reconciled 01/22/25 by Judah Soni MD alfuzosin ER 10 mg PO DAILY 30 days ammonium lactate 12% 1 appl topical BID aspirin 81 mg PO DAILY cholecalciferol (vitamin D3) 25 mcg PO DAILY clonazepam 1 mg PO TID 30 days compr.stocking,knee,long,x-lrg As directed escitalopram oxalate 10 mg (1/2 x 20 mg) PO DAILY fenofibrate mg PO fesoterodine ER 8 mg PO DAILY 90 days fludrocortisone 0.1 mg PO DAILY 7 days furosemide (Lasix) 20 mg PO DAILY Held on 01/16/25. Instructions: Doctor's Order gabapentin 300 mg PO DAILY isosorbide mononitrate ER 30 mg PO DAILY magnesium oxide 500 mg PO DAILY nitroglycerin 0.4 mg sublingual Q5M PRN omeprazole 40 mg PO BID oxybutynin chloride ER mg PO primidone orally; 1 tab in the am 3 tabs bedtime 3 months propranolol 30 mg (1/2 x 60 mg) PO BID rosuvastatin 40 mg PO DAILY trazodone 50 mg (1/2 x 100 mg) PO BEDTIME 90 days HPI Comments Details: Yoshi returns for follow-up regarding coronary disease. In the past, due to symptoms of heartburn, he underwent noninvasive testing with stress testing followed by coronary CT. These were abnormal leading to cardiac catheterization. He underwent stenting of the right coronary artery. He does not have any clear-cut exertional angina or any other concerning symptoms in that regard. It seems he is having orthostatic blood pressure issues and because of that amlodipine has been stopped. PCP notes states midodrine in his started but it seems he came to the ER and now he is on fludrocortisone. Patient himself does not know any other changes made. [facility] Medical History Osteoarthritis of right knee Venous insufficiency Positional lightheadedness Benign essential tremor Post traumatic stress disorder (PTSD) Panic disorder Other and unspecified hyperlipidemia GERD (gastroesophageal reflux disease) Essential hypertension Atherosclerotic cardiovascular disease Surgical History History of colonoscopy (~10/18/23) History of surgery on lower extremity Hx of decompression of ulnar nerve History of hernia repair Stented coronary artery History of cardiac catheterization (~06/19/19) Family History Father Stroke Mother No problems noted. Social History Housing: House Alcohol intake: former Patient Tobacco Use Status: Former Tobacco user (Quite in 2004) e-Cigarette/Vaping Use: Never Used service: Yes Current occupational status: retired Cognitive needs: No Hearing needs: No Vision needs: Yes ([place]) Review of Systems Const Denies chills, Denies fatigue, Denies fever(s), Denies frequent falls, Denies weakness, Denies weight gain and Denies weight loss ENT Denies dizziness Card Denies chest pain, Denies leg edema, Denies lightheadedness, Denies palpitations, Denies dyspnea and Denies dyspnea on exertion Resp Denies cough, Denies dyspnea and Denies dyspnea on exertion GI Denies hematochezia Musc Denies abnormal gait, Denies muscle weakness, Denies numbness, Denies radiating pain into limb and Denies tingling Neuro Denies abnormal gait, Denies dizziness, Denies frequent falls, Denies numbness, Denies tingling and Denies weakness Endo Denies fatigue and Denies palpitations Physical Exam Vital Signs: Last Vital Signs Pulse 59 01/22/25 15:07 BP 106/60 01/22/25 15:07 BMI result Body Mass Index 40.4 Const General: comfortable and no acute distress Orientation/consciousness: patient oriented x3 HEENT Other: Unremarkable Head: Yes normal to inspection Neck Neck: Yes normal visual inspection Chest Chest palpation & inspection: normal inspection of the chest Resp Auscultation: clear to auscultation bilaterally Cardio Palpation: normal PMI Heart sounds: S1 normal heart sound present, S2 normal heart sound present, no gallops, no murmurs and no rubs GI Palpation (GI): Soft to palpation Back/Spine/Pelvis Other: unremarkable Skin General skin exam: no rashes or lesions noted Neuro General: patient oriented x3 Extrem General: Yes normal to inspection Psych Mental Status: mental status grossly normal Office Procedures EKG Details: EKG with sinus bradycardia at 59/Min; no ischemic changes; [place] [id number], Complete Assessment & Plan Assessment & Plan (1) Atherosclerotic cardiovascular disease: Code(s): I25.10 - Atherosclerotic heart disease of [place] coronary artery without angina pectoris Category: Medical (2) Stented coronary artery: Code(s): Z95.5 - Presence of coronary angioplasty implant and graft Category: Surgical (3) Essential hypertension: Code(s): I10 - Essential (primary) hypertension Category: Medical (4) Other and unspecified hyperlipidemia: Code(s): E78.5 - Hyperlipidemia, unspecified Category: Medical (5) Morbid obesity due to excess calories: Code(s): E66.01 - Morbid (severe) obesity due to excess calories Category: Medical Plan Cardiac studies reviewed. Cardiac catheterization from 2019 with moderate distal left main lesion; additional lesions in both the 1st diagonal as well as right coronary artery. He underwent intervention to right coronary artery. Echocardiogram from 2023 with LVEF of 60-65%. Reported severe left ventricular hypertrophy. No significant valvular abnormalities. Myocardial perfusion imaging study shows probable basal inferior infarct pattern with gutierrez-infarct ischemia with components of diaphragmatic attenuation artifact. Overall, treat for stable coronary disease. Med list as aspirin although last note states we will just keep him on Plavix instead due to acid reflux symptoms. Otherwise, he is on nitrates, statins. No further changes made. With regard to the question of orthostatic hypotension, patient does not know any other changes made and hence we will leave it with PCP to avoid any further confusion. Weight itself has been a long-term issue and unlikely to change. Coding Level of Care Code Est Pt Level 4 (56182) Complex EM visit Add On G2211 Diagnoses Atherosclerotic cardiovascular disease I25.10 Stented coronary artery Z95.5 Essential hypertension I10 Other and unspecified hyperlipidemia E78.5 Morbid obesity due to excess calories E66.01 CPT Codes EKG - CPT: 28770-[id number], Complete ([id number])
[2025-01-22 15:07] VITALS: BP 106/60; PULSE 59; BMI 40.4
--- OUTSIDE RECORDS SUMMARY | 2025-01-22 18:18 | XMS_ITS | Patient Health Record ---
Author Organization [facility] Address [address] [place] [address] Care Team Providers Care Hearing Officer Name Role Phone Osorio Delgado MD Primary Care Provider Unavailab Shmuel Leal Unavailable [phone] Reason For Referral No Information Medications Medication [...] Status Risk Notes Problem Acquired hallux rigidus (3956512) Hallux rigidus, left foot (M20.22) Active confirmed Problem Acquired hallux rigidus (2645295) Hallux rigidus, right foot (M20.21) Active confirmed Plan Of Treatment Pending Test Test Name Order Date X ray : Foot, left 3V 03/28/2019 Insurance Providers Payer Name Payer Address Payer Phone Subscriber Number Group Number Insured Name Patient Relationship to Insured Coverage Start Date Coverage End Date Medicare National Govt SvHEROZ [facility] [address] [place] [address] [id number] Yoshi Mackenzie Self - patient is the insured [email or web address] [facility] [address] [place] [address] [id number] Yoshi Mackenzie Self - patient is the insured Medical (General) History Medical History History ICD Code Anxiety Arthritis Back,Hip,and Knee pain CAD (Cholesterol) Hiatal hernia High blood pressure Reflux ( GERD) Chicken pox Surgical History Surgery Date(Month/Year) hernia knee surgery, right Stent put in 07/05
== END 2025-01-22 15:25 | disposition home or self-care (01) ==
LOC: HO.HCS 15:03
PROVIDERS: PCP Family Medicine; Visit Provider Internal Medicine
DX: I25.10 Atherosclerotic heart disease of native coronary artery without angina pectoris (principal); Z95.5 Presence of coronary angioplasty implant and graft; I10 Essential (primary) hypertension; E78.5 Hyperlipidemia, unspecified; E66.01 Morbid (severe) obesity due to excess calories
CPT/HCPCS: 93010; 99214; G2211

== ENCOUNTER → 2025-01-22 15:03 | Outpatient (BNVA) | payer MEDICARE, SELFPAY | PROVIDERS: PCP Family Medicine; Visit Provider Internal Medicine | DX: I25.10 Atherosclerotic heart disease of native coronary artery without angina pectoris (principal); Z95.5 Presence of coronary angioplasty implant and graft; Z87.891 Personal history of nicotine dependence; I10 Essential (primary) hypertension; E78.5 Hyperlipidemia, unspecified; E66.01 Morbid (severe) obesity due to excess calories; Z68.41 Body mass index [BMI] 40.0-44.9, adult; Z79.82 Long term (current) use of aspirin | CPT/HCPCS: 93005; 99212 ==

== ENCOUNTER 2025-01-23 14:51 | Outpatient (AMB) | payer MEDICARE, SELFPAY ==
--- NOTE | 2025-01-23 15:13 | A.OFFPC_ITS ---
Vital Signs 01/23/25 15:15 01/23/25 17:31 Height 5 ft 11 in Weight 131.995 kg BMI 40.6 BP 120/68 128/62 Blood Pressure Location Lt brachial Position Sitting Respiration 16 Pulse 73 Pulse Source Pulse Oximeter Temp 97.7 F Temp Source Temporal Artery Scan Pulse Oximetry (%) 93 Oxygen Delivery Method Room Air Intake Visit Reasons: [facility] D/C Mechanical Adjuster Required: No Accompanied by: Self / Same As Patient Allergies No Known Allergies (No Known Allergies*) Allergy (Verified 01/23/25 15:14) Medication List - Last Reconciled 01/23/25 by GERMAINE Yin ammonium lactate 12% 1 appl topical BID aspirin 81 mg PO DAILY cholecalciferol (vitamin D3) 25 mcg PO DAILY clonazepam 1 mg PO TID 30 days compr.stocking,knee,long,x-lrg As directed escitalopram oxalate 10 mg (1/2 x 20 mg) PO DAILY fenofibrate mg PO .QD fesoterodine ER 8 mg PO DAILY 90 days gabapentin 300 mg PO DAILY magnesium oxide 500 mg PO DAILY nitroglycerin 0.4 mg sublingual Q5M PRN omeprazole 40 mg PO BID oxybutynin chloride ER mg PO .QD primidone orally; 1 tab in the am 3 tabs bedtime 3 months propranolol 30 mg (1/2 x 60 mg) PO BID rosuvastatin 40 mg PO DAILY trazodone 50 mg (1/2 x 100 mg) PO BEDTIME 90 days Tobacco use date assessed: 12/12/24 Dental Screening Dental Screen Date: 12/12/24 HPI HPI Comments History of Present Illness Details 74-year-old male with history of hyperte nsion, COPD, venous insufficiency, coronary artery disease, hyperlipidemia, major depressive disorder and anxiety, GERD, DANK presents to the office for follow-up. He has been seen multiple times in the last 2 weeks due to lightheadedness and orthostatic hypotension. He has had several medications discontinued as a result to attempt to resolve the orthostasis. Amlodipine was discontinued and propranolol was cut in half. Despite this, persisted with orthostatic hypotension. At last visit, systolic pressure in the 80s and was recommended to go to the ED for fluids to help stabilize his blood pressure and symptoms. He was also given a prescription for midodrine to take 3 times daily for blood pressure support. However, on discharge from the ED, he was also given a prescription for fludrocortisone. Cause placed to his mail-in pharmacy as well as local pharmacy. He has been taking the fludrocortisone but did not ever start the midodrine. He does continue on propranolol and isosorbide 30 mg ER. Was seen by Cardiology yesterday as well for coronary artery disease. It is known that isosorbide can cause significant orthostatic hypotension. He states that since the ER and usin g the fludrocortisone he has been feeling much better with only occasional lightheadedness when walking but still much improved. No falls or syncope.\ Patient struggles remembering his medication and has all of his pills lined up on his counter. He does not use a pillbox or bubble pack. We did discuss possibly using a bubble pack. Blood pressure in the office today 120/68 manually and 128/62 mechanically [facility] Medical History Osteoarthritis of right knee Venous insufficiency Positional lightheadedness Benign essential tremor Post traumatic stress disorder (PTSD) Panic disorder Other and unspecified hyperlipidemia GERD (gastroesophageal reflux disease) Essential hypertension Atherosclerotic cardiovascular disease Surgical History History of colonoscopy (~10/18/23) History of surgery on lower extremity Hx of decompression of ulnar nerve History of hernia repair Stented coronary artery History of cardiac catheterization (~06/19/19) Family History Father Stroke Mother No problems noted. Social History Housing: House Alcohol intake: former Patient Tobacco Use Status: Former Tobacco user (Quite in 2004) e-Cigarette/Vaping Use: Never Used service: Yes Current occupational status: retired Cognitive needs: No Hearing needs: No Vision needs: Yes ([place]) Questionnaire Thrive Questionnaire Date Thrive assessed: 12/12/24 AARON-7 AMB Questionnaire AARON-7 Date AARON - 7 assessed: 12/12/24 Source: Developed by Drs. Chilo Piper, Santa Robbins, Andyr Mclaughlin and colleagues, with an educational nadira from [employer]. Physical exam (Primary Care) Vital Signs: Last Vital Signs Temp 97.7 F 01/23/25 15:15 Pulse 73 01/23/25 15:15 Resp 16 01/23/25 15:15 BP 104/70 01/23/25 15:15 Pulse Ox 93 01/23/25 15:15 Oxygen Delivery Method Room Air 01/23/25 15:15 BMI result Body Mass Index 40.6 Tobacco/Smoking Status: Tobacco use Status Tobacco use date assessed 12/12/24 01/23/25 15:23 Patient Tobacco Use Status Former Tobacco user (Quite 01/23/25 15:23 in 2004) e-Cigarette/Vaping Use Never Used 01/23/25 15:23 Thrive Assessment: Date of Thrive Assessment Date Thrive assessed 12/12/24 01/23/25 15:23 Coding Level of Care Code Est Pt Level 4 (19423) Diagnoses Orthostatic hypotension I95.1 Assessment & Plan Assessment & Plan (1) Orthostatic hypotension: Code(s): I95.1 - Orthostatic hypotension Category: Medical Plan: Persists after multiple medication adjustments. Blood pressure has improved with the addition of fludrocortisone as have his symptoms. However, his isosorbide is likely contributing to some extent. While he is using this for coronary artery disease, he has had no recent anginal symptoms whatsoever. Discussed altering dose of isosorbide with wage analyst. Given he is on the lowest dose of the isosorbide, will discontinue. Would favor discontinuation of the offending agent rather than continuing with 2nd medication whether that be midodrine or fludrocortisone to help sustain his blood pressures/manage orthostasis as he is already having difficulty managing his medications. We will also refer him to nursing to have medications placed in bubble packs to help patient manage his medications. He will follow-up in the office in 2 weeks for blood pressure recheck, sooner if needed for ongoing symptoms.
[2025-01-23 15:15] VITALS: BP 120/68; PULSE 73; RESP 16; TEMP 36.5; O2SAT 93; BMI 40.6
[2025-01-23 17:31] VITALS: BP 128/62
== END 2025-01-23 16:02 | disposition home or self-care (01) ==
LOC: HO.HMCHD 14:52
PROVIDERS: PCP Physician Assistant; Visit Provider Physician Assistant
DX: I95.1 Orthostatic hypotension (principal)

== ENCOUNTER → 2025-01-23 14:51 | Outpatient (BNVA) | payer MEDICARE, SELFPAY | PROVIDERS: PCP Physician Assistant; Visit Provider Physician Assistant | DX: I95.1 Orthostatic hypotension (principal) | CPT/HCPCS: 99212 ==

== ENCOUNTER 2025-02-08 15:53 | Outpatient (AMB) | payer MEDICARE, SELFPAY ==
--- OUTSIDE RECORDS SUMMARY | 2023-10-11 09:40 | XMS_ITS ---
Author Organization [facility] Address [address] [place] [address] Care Team Providers Care Branch Coordinator Name Role Phone Danny (RETIRED) , Osorio Primary Care Provider Jono Livingston Jr REASON FOR VISIT screening Encounters Encounter Location Date Provider Diagnosis [facility] [place] [address] [place], [place] [phone] 10/11/2023 Jono Lay Jr Plan Of Treatment No Information Progress Notes * JAK RINALDI ADOB: [birth year] (74 yo M)Acc No.[id number]:10/11/2023 COLON WITH MAC Patient: JAK GUZMÁN Provider: Fritz Lay MD :1950 A ge:73 Y S ex:Male Date:10/11/2023 Address:[address] [place], [place] [id number] Pcp:Osorio Delgado (RETIRED) MD Subjective: * Chief [...] 10/11/2023 Generated for Printi ng/Faxing/eTransmitting on: 1 05:06 PM EDT
--- OUTSIDE RECORDS SUMMARY | 2023-10-18 10:10 | XMS_ITS ---
Author Organization [facility] Address [address] [place] [address] Care Team Providers Care Noteman Name Role Phone Danny (RETIRED) , Osorio Primary Care Provider Unavailable Jono Lay Jr Unavailable REASON FOR VISIT screening Encounters Encounter Location Date Provider Diagnosis [facility] [place] [address] [place] [id number] 10/18/2023 Jono Lay Jr Encounter for screening colonoscopy Z12.11 and Personal history of colonic polyps Z86.010 Assessments Encounter Date Diagnosis (ICD Code) Assessment Notes Treatment Notes Treatment Clinical Notes Section Notes 10/18/2023 Encounter for screening colonoscopy (ICD-10 - Z12.11) 10/18/2023 Personal history of colonic polyps (ICD-10 - Z86.010) Plan Of Treatment No Information Progress Notes * NICMOJAK ADOB: [birth year] (74 yo M)Acc No.[id number]:10/18/2023 COLON WITH MAC Patient: JAK GUZMÁN Provider: Fritz Lay MD :1950 A ge:73 Y S ex:Male Date:10/18/2023 Address:[address] [place] [address] [id number] Pcp:Osorio Delgado (RETIRED) MD Subjective: * Chief Complaints: * 1 . Screening. * Medical History: Objective: * Vitals: Assessment: * Assessment: 1. E ncounter for screening colonoscopy - Z12.11 (Primary) 2 . P ersonal history of colonic polyps - Z86.010 Plan: * Treatment: * Procedure Codes: G 0105 COLOREC CANCR SCR; COLNSCPY HI RISK, 18217 DIAGNOSTIC COLONOSCOPY, Modifiers: 53 , 0529F INTRVL [...] 0 10/18/2023 Generated for Nanci carter/Elo/Rowenaitting on: 05:06 PM EDT
[2025-02-08 15:40] VITALS: BP 132/61; PULSE 61; TEMP 36.9; O2SAT 96; BMI 26.2
--- NOTE | 2025-02-08 15:40 | A.OFFPC_ITS ---
Vital Signs 02/08/25 15:40 Height 5 ft 11 in Weight 85.275 kg BMI 26.2 BP 132/61 Blood Pressure Location Lt brachial Position Sitting Pulse 61 Pulse Source Pulse Oximeter Temp 98.4 F Temp Source Temporal Artery Scan Pulse Oximetry (%) 96 Oxygen Delivery Method Room Air Intake Visit Reasons: 2 week BP f/u Solar Installation Supervisor Required: No Accompanied by: Self / Same As Patient Allergies No Known Allergies (No Known Allergies*) Allergy (Verified 02/08/25 15:40) Medication List - Last Reconciled 02/08/25 by GERMAINE Yin ammonium lactate 12% 1 appl topical BID aspirin 81 mg PO DAILY cholecalciferol (vitamin D3) 25 mcg PO DAILY clonazepam 1 mg PO TID 30 days compr.stocking,knee,long,x-lrg As directed escitalopram oxalate 20 mg PO DAILY fenofibrate 160 mg PO DAILY fesoterodine ER 8 mg PO DAILY 90 days Held on 02/08/25. Instructions: Doctor's Order gabapentin 300 mg (1/2 x 600 mg) PO DAILY magnesium oxide 500 mg PO DAILY nitroglycerin 0.4 mg sublingual Q5M PRN omeprazole 40 mg PO BID oxybutynin chloride ER 10 mg PO DAILY Held on 02/08/25. Instructions: Doctor's Order primidone orally; 1 tab in the am 3 tabs bedtime 3 months rosuvastatin 40 mg PO DAILY trazodone 50 mg (1/2 x 100 mg) PO BEDTIME 90 days Tobacco use date assessed: 02/08/25 Fall risk assessment: No Falls in past year Last assessed Fall Risk: 02/08/25 Dental Screening Dental Screen Date: 02/08/25 Did you have a dental visit in the last 12 months?: No Did you have a dental problem in the last 6 months where you did not have access to dental care?: No HPI HPI Comments History of Present Illness Details 74-year-old male with history of hyperte nsion, COPD, venous insufficiency, coronary artery disease, hyperlipidemia, major depressive disorder and anxiety, GERD, DANK presents to the office for follow-up. He has been seen multiple times in the last 2 weeks due to lightheadedness and orthostatic hypotension. He has had several medications discontinued as a result to attempt to resolve the orthostasis. Amlodipine was discontinued and propranolol was cut in half. At last visit, isosorbide was discontinued-diff discuss with Cardiology. Despite this, persisted with orthostatic hypotension. He still continues to have intermittent episodes of positional lightheadedness. Fludrocortisone and midodrine has been discontinued. Orthostatic vital signs performed-upon standing blood pressure drops to 81/42. No increase in HR ROS: ROS: General: No fevers, malaise, unintentional weight loss HEENT: No blurred vision, diplopia. No sore throat, nasal congestion, rhinorrhea, sinus pain, ear pain Cardiovascular: No chest pain, palpitations, or leg edema Respiratory: No shortness of breath, wheezing, cough GI: No abdominal pain, nausea, vomiting, diarrhea, constipation, melena, hematochezia : No dysuria, hematuria, increased urinary frequency, decreased urinary output MSK: No myalgia, back pain Neuro: No headaches, weakness, paresthesias. see hpi Skin: No rashes or lesions EXAM: Constitutional - Awake and Alert, No apparent distress Eyes - PERRL Cardiovascular - S1S2, RRR, No edema Respiratory - Normal lung expansion, Normal respiratory effort, No respiratory distress, CTA bilaterally Extremities - no calf tenderness bilaterally, no swelling Skin - Warm/Dry Neurological - Alert & oriented x3 Psychological - Appropriate affect PFSH Medical History Osteoarthritis of right knee Venous insufficiency Positional lightheadedness Benign essential tremor Post traumatic stress disorder (PTSD) Panic disorder Other and unspecified hyperlipidemia GERD (gastroesophageal reflux disease) Essential hypertension Atherosclerotic cardiovascular disease Surgical History History of colonoscopy (~10/18/23) History of surgery on lower extremity Hx of decompression of ulnar nerve History of hernia repair Stented coronary artery History of cardiac catheterization (~06/19/19) Family History (Updated 02/08/25 @ 16:12 by Ashley Caldwell MA) Father Stroke Mother No problems noted. Social History Housing: House Alcohol intake: former Patient Tobacco Use Status: Former Tobacco user (Quite in 2004) e-Cigarette/Vaping Use: Never Used service: Yes Current occupational status: retired Cognitive needs: No Hearing needs: No Vision needs: Yes ([place]) Questionnaire PHQ-9 Over the last 2 weeks, how often have you been bothered by any of the following problems? 1. Little interest or pleasure in doing things: not at all 2. Feeling down, depressed, or hopeless: not at all 3. Trouble falling or staying asleep, or sleeping too much: not at all 4. Feeling tired or having little energy: not at all 5. Poor appetite or overeating: not at all 6. Feeling bad about yourself - or that you are a failure or have let yourself or your family down: not at all 7. Trouble concentrating on things, such as reading the newspaper or watching television: not at all 8. Moving or speaking so slowly that other people could have noticed. Or the opposite - being so fidgety or restless that you have been moving around a lot more than usual: not at all 9. Thoughts that you would be better off or of hurting yourself in some way: not at all Total score: 0 Source: Developed by Drs. Chilo Piper, Santa Robbins, Andry Mclaughlin and colleagues, with an educational nadira from [employer]. Thrive Questionnaire Date Thrive assessed: 02/08/25 I am a: Patient Within the past 12 months, did the food you bought not last and you didn't have the money to get more?: Never true Within the past 12 months, did you worry whether your food would run out before you got money to buy more?: Never true Do you have trouble paying for medicines?: No Do you have trouble getting transportation to medical appointments?: No Do you have trouble paying your heating and electricity bill?: No Do you have trouble taking care of your child, family member or friend?: No Do you have trouble with day-to-day activities such as bathing, preparing meals, shopping, managing finances, etc.?: No Are you currently unemployed and looking for a job?: No Are you interested in more education?: No THRIVE Score: 0 AUDIT C Alcohol Use Questionnaire (AUDIT-C) 1. How often do you have a drink containing alcohol?: Never 3. How often do you have six or more drinks on one occasion?: Never Total Score: 0 AARON-7 AMB Questionnaire AARON-7 Date AARON - 7 assessed: 02/08/25 Feeling nervous, anxious, or on edge: 0 = Not at all Not being able to stop or control worryin = Not at all Worrying too much about different things: 0 = Not at all Trouble relaxin = Not at all Being so restless that it is hard to sit still: 0 = Not at all Becoming easily annoyed or irritable: 0 = Not at all Feeling afraid as if something awful might happen: 0 = Not at all Total AARON-7 score (0-4 normal; 5-9 mild; 10-14 moderate; 15-21 severe): 0 Source: Developed by Drs. Chilo Piper, Santa Robbins, Andry Mclaughlin and colleagues, with an educational nadira from [employer]. Physical exam (Primary Care) Vital Signs: Last Vital Signs Temp 98.4 F 02/08/25 15:40 Pulse 61 02/08/25 15:40 BP 132/61 02/08/25 15:40 Pulse Ox 96 02/08/25 15:40 Oxygen Delivery Method Room Air 02/08/25 15:40 BMI result Body Mass Index 26.2 Tobacco/Smoking Status: Tobacco use Status Tobacco use date assessed 02/08/25 02/08/25 15:41 Patient Tobacco Use Status Former Tobacco user (Quite 02/08/25 15:41 in 2004) e-Cigarette/Vaping Use Never Used 02/08/25 15:41 PHQ-9: PHQ-9 Score PHQ-9: Total score 0 02/08/25 16:47 Thrive Assessment: Date of Thrive Assessment Date Thrive assessed 02/08/25 02/08/25 15:41 Coding Level of Care Code Est Pt Level 4 (06764) Diagnoses Orthostatic hypotension I95.1 Assessment & Plan Assessment & Plan (1) Orthostatic hypotension: Code(s): I95.1 - Orthostatic hypotension Category: Medical Plan: Hold cetirizine, oxybutynin. Continue with adequate fluid intake. Recommend compression stockings as ordered. Fasting cortisol and testosterone levels ordered. Discontinue propranolol Plan Follow-up as scheduled. Reach out to the office if symptoms persist after holding medications Orders: Orders Cortisol Random Today E29.1 - Testicular hypofunction, F11.20 - Opioid dependence, uncomplicated, I95.1 - Orthostatic hypotension Testosterone, Total Today E29.1 - Testicular hypofunction, F11.20 - Opioid dependence, uncomplicated, I95.1 - Orthostatic hypotension Medications: Discontinued propranolol Discontinued Reason: Doctor's Order 30 mg (1/2 x 60 mg) PO BID 180 tabs 0RF On Hold fesoterodine ER Hold Comment: Doctor's Order 8 mg PO DAILY 90 days 90 tabs 1RF R39.15 - Urgency of urination oxybutynin chloride ER Hold Comment: Doctor's Order 10 mg PO DAILY 90 tabs 1RF
--- OUTSIDE RECORDS SUMMARY | 2025-02-08 17:06 | XMS_ITS | Patient Health Record ---
Author Organization [facility] Address [address] [place] [address] Care Team Providers Care Orthotist Or Prosthetist Name Role Phone Osorio Delgado MD Primary Care Provider Unavailab Shmuel Leal Unavailable [phone] Reason For Referral No Information Medications Medication [...] Status Risk Notes Problem Acquired hallux rigidus (8255751) Hallux rigidus, left foot (M20.22) Active confirmed Problem Acquired hallux rigidus (6004279) Hallux rigidus, right foot (M20.21) Active confirmed Plan Of Treatment Pending Test Test Name Order Date X ray : Foot, left 3V 03/28/2019 Insurance Providers Payer Name Payer Address Payer Phone Subscriber Number Group Number Insured Name Patient Relationship to Insured Coverage Start Date Coverage End Date Medicare National Govt [employer] [facility] [address] [place] [address] [id number] Yoshi Mackenzie Self - patient is the insured [employer] [facility] [address] [place] [address] [id number] Yoshi Mackenzie Self - patient is the insured Medical (General) History Medical History History ICD Code Anxiety Arthritis Back,Hip,and Knee pain CAD (Cholesterol) Hiatal hernia High blood pressure Reflux ( GERD) Chicken pox Surgical History Surgery Date(Month/Year) hernia knee surgery, right Stent put in 07/05
--- OUTSIDE RECORDS SUMMARY | 2025-02-08 17:06 | XMS_ITS | Patient Health Record ---
Author Organization [facility] Address [address] [place] [address] Care Team Providers Care Brake Holder Name Role Phone Danny (RETIRED) Osorio BENSON Primary Care Provider Unavailable Jono Lay Jr Unavailable Allergies No Known Allergies Reason For Referral No Information Medications Medication SIG (Take, Route, Frequency, Duration) Notes Start Date End Date Status MiraLax (colon prep) 17 GM/SCOOP mixed with Gatorade or Crystal Light Orally begin at 5:00 p.m. the day before the procedure; Duration: 1 day 09/29/2023 Active Clopidogrel Bisulfate 75 MG Oral; Duration: 90 Active Rosuvastatin Calcium 40 MG 1 tablet Oral ly Once a day Active amLODIPine Besylate 5 MG Oral; Duration: 90 Active Zinc Active Isosorbide Mononitrate ER 30 MG Oral; Duration: 90 Active Vitamin C Active Escitalopram Oxalate 20 MG Oral; Duration: 90 Active Vitamin D3 Active Fenofibrate 160 MG Oral; Duration: 90 Active Gabapentin 600 MG Oral; Duration: 90 Active Magnesium 250 MG 1 tablet with a meal Orally Once a day; Duration: 30 day(s) Active traZODone HCl 100 MG Oral; Duration: 90 Active Aspir-81 81mg Active Propranolol HCl 60 MG Oral; Duration: 90 Active clonazePAM 1 MG Oral; Duration: 30 Active Metoprolol Tartrate 50 MG Oral; Duration: 90 Active Omeprazole 40 MG 1 capsule 30 minutes before morning meal Orally Once a day; Duration: 30 day(s) Active LORazepam 1 MG Oral; Duration: 30 Active Nitroglycerin Active Immunizations Vaccine Route Administration Date Status Comme nts Influenza Unknown 02/16/2017 Administered Influenza Unknown 01/16/2022 Administered Problems Problem Type SNOMED Code ICD Code Onset Dates Problem Status W/U Status Risk Notes Problem Colon cancer screening (529743360) Colon cancer screening (Z12.11) Active confirmed Problem History of polyp of colon (situation) (266113118) Personal history of colonic polyps (Z86.010) Active confirmed Problem Gastroesophageal reflux disease (891200860) Gastroesophageal reflux disease (K21.9) Active confirmed Problem Gastroesophageal reflux disease without esophagitis (034288503) Gastroesophageal reflux disease without esophagitis (K21.9) Active confirmed Problem Long-term current use of antiplatelet drug (703877459385895) Long-term use of aspirin therapy (Z79.82) Active confirmed Problem Constipation (57990333) Constipation, unspecified constipation type (K59.00) Active confirmed Plan Of Treatment Future Test Test Name Order Date COLONOSCOPY 09/16/2011 UPPER GI ENDOSCOPY 09/29/2017 COLONOSCOPY 09/29/2017 UPPER GI ENDOSCOPY 05/20/2022 COLONOSCOPY 05/20/2022 COLONOSCOPY 09/29/2023 Insurance Providers Payer Name Payer Address Payer Phone Subscriber Number Group Number Insured Name Patient Relationship to Insured Coverage Start Date Coverage End Date MEDICARE OF [place] [address] [place] [phone] [id number] JAK RINALDI Self - patient is the insured [employer] ATT[employer] CLAIMS [address] [place] [address] [id number] JAK RINALDI Self - patient is the [...]
== END 2025-02-08 17:09 | disposition home or self-care (01) ==
LOC: HO.HMCHD 15:54
PROVIDERS: PCP Physician Assistant; Visit Provider Physician Assistant
DX: I95.1 Orthostatic hypotension (principal)

== ENCOUNTER → 2025-02-08 15:53 | Outpatient (BNVA) | payer MEDICARE, SELFPAY | PROVIDERS: PCP Physician Assistant; Visit Provider Physician Assistant | DX: I95.1 Orthostatic hypotension (principal); I10 Essential (primary) hypertension; J44.9 Chronic obstructive pulmonary disease, unspecified; I25.10 Atherosclerotic heart disease of native coronary artery without angina pectoris; Z13.39 Encounter for screening examination for other mental health and behavioral disorders; Z13.30 Encounter for screening examination for mental health and behavioral disorders, unspecified | CPT/HCPCS: 96127; 99212 ==

== ENCOUNTER 2025-02-11 07:30 | Outpatient (REF) | payer MEDICARE, SELFPAY ==
--- OUTSIDE RECORDS SUMMARY | 2023-10-11 09:40 | XMS_ITS ---
Author Organization [facility] Address [address] [place] [address] Care Team Providers Care Computer Support Specialist Name Role Phone Danny (RETIRED) , Osorio Primary Care Provider Jnoo Livingston Jr [phone] REASON FOR VISIT screening Encounters Encounter Location Date Provider Diagnosis [facility] [address] [place], [place] [phone] 10/11/2023 Jono Lay Jr Plan Of Treatment No Information Progress Notes * JAK RINALDI ADOB: [birth year] (74 yo M)Acc No.[id number]:10/11/2023 COLON WITH MAC Patient: JAK GUZMÁN Provider: Fritz Lay MD :1950 A ge:73 Y S ex:Male Date:10/11/2023 Address:[address] [place], [place] [phone] Pcp:Osorio Delgado (RETIRED) MD Subjective: * Chief [...] 10/11/2023 Generated for Printi ng/Faxing/eTransmitting on: 1 07:33 AM EDT
--- OUTSIDE RECORDS SUMMARY | 2023-10-18 10:10 | XMS_ITS ---
Author Organization [facility] Address [address] [place] [address] Care Team Providers Care Forms Analyst Name Role Phone Danny (RETIRED) , Osorio Primary Care Provider Unavailable Jono Lay Jr Unavailable REASON FOR VISIT screening Encounters Encounter Location Date Provider Diagnosis [facility] [place] Outpatient [address] [place] [id number] 10/18/2023 Jono Lay Jr Encounter for screening colonoscopy Z12.11 and Personal history of colonic polyps Z86.010 Assessments Encounter Date Diagnosis (ICD Code) Assessment Notes Treatment Notes Treatment Clinical Notes Section Notes 10/18/2023 Encounter for screening colonoscopy (ICD-10 - Z12.11) 10/18/2023 Personal history of colonic polyps (ICD-10 - Z86.010) Plan Of Treatment No Information Progress Notes * NIMCOJAK ADOB: [birth year] (74 yo M)Acc No.[id number]:10/18/2023 COLON WITH MAC Patient: JAK GUZMÁN Provider: Fritz Lay MD :1950 A ge:73 Y S ex:Male Date:10/18/2023 Address:[address] [place] [address] [id number] Pcp:Osorio Delgado (RETIRED) MD Subjective: * Chief Complaints: * 1 . Screening. * Medical History: Objective: * Vitals: Assessment: * Assessment: 1. E ncounter for screening colonoscopy - Z12.11 (Primary) 2 . P ersonal history of colonic polyps - Z86.010 Plan: * Treatment: * Procedure Codes: G 0105 COLOREC CANCR SCR; COLNSCPY HI RISK, [address]015 DIAGNOSTIC COLONOSCOPY, Modifiers: 53 , 0529F INTRVL [...] 0 10/18/2023 Generated for Nanci carter/Elo/Rowenaitting on: 07:33 AM EDT
--- OUTSIDE RECORDS SUMMARY | 2025-02-11 07:33 | XMS_ITS | Patient Health Record ---
Author Organization [facility] Address [address] [place] [address] Care Team Providers Care Data Steward Name Role Phone Danny (RETIRED) Osorio BENSON Primary Care Provider Unavailable Jono Lay Jr Unavailable [phone] Allergies No Known Allergies Reason For Referral [...] Status Risk Notes Problem Colon cancer screening (254099853) Colon cancer screening (Z12.11) Active confirmed Problem History of polyp of colon (situation) (791189931) Personal history of colonic polyps (Z86.010) Active confirmed Problem Gastroesophageal reflux disease (693163747) Gastroesophageal reflux disease (K21.9) Active confirmed Problem Gastroesophageal reflux disease without esophagitis (079365523) Gastroesophageal reflux disease without esophagitis (K21.9) Active confirmed Problem Long-term current use of antiplatelet drug (436583417462632) Long-term use of aspirin therapy (Z79.82) Active confirmed Problem Constipation (85193638) Constipation, unspecified constipation type (K59.00) Active confirmed [...] OF [place] [address] [place] [phone] [id number] JAK RINALDI Self - patient is the insured MED[employer] ATTN CLAIMS [address] [place] [address] [id number] JAK RINALDI Self - patient is the [...]
--- OUTSIDE RECORDS SUMMARY | 2025-02-11 07:33 | XMS_ITS | Patient Health Record ---
Author Organization [facility] Address [address] [address] Care Team Providers Care Curtain Stitcher Name Role Phone Osorio Delgado MD Primary Care Provider Unavailab Shmuel Leal Unavailable [phone] Reason For Referral No Information Medications Medication [...] Status Risk Notes Problem Acquired hallux rigidus (0985576) Hallux rigidus, left foot (M20.22) Active confirmed Problem Acquired hallux rigidus (5403547) Hallux rigidus, right foot (M20.21) Active confirmed Plan Of Treatment Pending Test Test Name Order Date X ray : Foot, left 3V 03/28/2019 Insurance Providers Payer Name Payer Address Payer Phone Subscriber Number Group Number Insured Name Patient Relationship to Insured Coverage Start Date Coverage End Date Medicare National Govt [id number] [facility] [address] [place] [address] [id number] Yoshi Mackenzie Self - patient is the insured [employer] [facility] [address] [place] [address] [phone] [id number] Yoshi Mackenzie Self - patient is the insured Medical (General) History Medical History History ICD Code Anxiety Arthritis Back,Hip,and Knee pain CAD (Cholesterol) Hiatal hernia High blood pressure Reflux ( GERD) Chicken pox Surgical History Surgery Date(Month/Year) hernia knee surgery, right Stent put in 07/05
== END 2025-02-11 07:31 | disposition home or self-care (01) ==
LOC: HO.LAB 07:30
PROVIDERS: PCP Physician Assistant; Visit Provider Physician Assistant
DX: E29.1 Testicular hypofunction (principal); F11.20 Opioid dependence, uncomplicated; I95.1 Orthostatic hypotension
CPT/HCPCS: 36415; 82533; 84403

== ENCOUNTER 2025-02-26 13:28 | Outpatient (REF) | payer MEDICARE, SELFPAY ==
--- OUTSIDE RECORDS SUMMARY | 2023-10-11 08:40 | XMS_ITS ---
Author Organization [facility] Address [address] [place] [address] Care Team Providers Care Assistant Professor Of Dietetics Name Role Phone Danny (RETIRED) , Osorio Primary Care Provider Jono Livingston Jr REASON FOR VISIT screening Encounters Encounter Location Date Provider Diagnosis [facility] [place] [address] [place], [place] [phone] 10/11/2023 Jono Lay Jr Plan Of Treatment No Information Progress Notes * JAK RINALDI ADOB: [birth year] (74 yo M)Acc No.[id number]:10/11/2023 COLON WITH MAC Patient: JAK GUZMÁN Provider: Fritz Lay MD :1950 A ge:73 Y S ex:Male Date:10/11/2023 Address:[address] [place], [place] [phone] Pcp:Osorio Delgado (RETIRED) MD Subjective: * Chief Complaints: * 1 . Screening. * Medical History: Objective: * Vitals: Assessment: Plan: * Treatment: * * The named appointment provid er may or may not be the originator of this progress note, and it is not deemed complete until electronically signed by the appointment provider. Sign off status: Pending * Provider: Fritz Lay MD Date: 0 10/11/2023 Generated for Printi ng/Faxing/eTransmitting on: 1 04/28/2024 03:04 PM EST
--- OUTSIDE RECORDS SUMMARY | 2023-10-18 09:10 | XMS_ITS ---
Author Organization [facility] Address [address] [place] [address] Care Team Providers Care Aerobics Teacher Name Role Phone Danny (RETIRED) , Osorio Primary Care Provider Unavailable Jono Lay Jr Unavailable REASON FOR VISIT screening Encounters Encounter Location Date Provider Diagnosis [facility] Outpatient [address] [place] [phone] 10/18/2023 Jono Lay Jr Encounter for screening colonoscopy Z12.11 and Personal history of colonic polyps Z86.010 Assessments Encounter Date Diagnosis (ICD Code) Assessment Notes Treatment Notes Treatment Clinical Notes Section Notes 10/18/2023 Encounter for screening colonoscopy (ICD-10 - Z12.11) 10/18/2023 Personal history of colonic polyps (ICD-10 - Z86.010) Plan Of Treatment No Information Progress Notes * NIMCO, JAK ADOB: [birth year] (74 yo M)Acc No.[id number]:10/18/2023 COLON WITH MAC Patient: JAK GUZMÁN Provider: Fritz Lay MD :1950 A ge:73 Y S ex:Male Date:10/18/2023 Address:[address] [place] [address] [id number] Pcp:Osorio Delgado (RETIRED) MD Subjective: * Chief Complaints: * 1 . Screening. * Medical History: Objective: * Vitals: Assessment: * Assessment: 1. E ncounter for screening colonoscopy - Z12.11 (Primary) 2 . P ersonal history of colonic polyps - Z86.010 Plan: * Treatment: * Procedure Codes: G 0105 COLOREC CANCR SCR; COLNSCPY HI RISK, 61356 DIAGNOSTIC COLONOSCOPY, Modifiers: 53 , 0529F INTRVL 3+YRS PTS CLNSCP DOCD, Modifiers: 1P * Preventive Medicine: GISSEL Screening: C olonoscopy W as interval between colonoscopies three years or more? N o due to Medical Reason, W as last colonoscopy performed three or more years ago??No due to Medical Reason. * * The named appointment provid er may or may not be the originator of this progress note, and it is not deemed complete until electronically signed by the appointment provider. Sign off status: Pending * Provider: Fritz Lay MD Date: 0 10/18/2023 Generated for Nanci carter/Elo/Rowenaitting on: 04/28/2024 03:04 PM EST
--- NOTE | ~2025-02-26 | US_ITS ---
EXAMINATION: US LOWER EXTREMITY VENOUS (REFLUX EXAM), BILATERAL CLINICAL INFORMATION: M79.604 - Pain in right leg COMPARISON: None. TECHNIQUE: Color flow triplex imaging and compression Doppler was performed to evaluate both the deep and the superficial systems bilaterally. To evaluate the superficial system, the examination was performed in the upright position. Color-flow Doppler ultrasound and compression ultrasound were utilized. In addition, maneuvers were utilized to demonstrate reflux. FINDINGS: 1. DEEP VENOUS ULTRASOUND OF THE RIGHT LOWER EXTREMITY: Common Femoral Vein: Compressible, normal respiratory variation and augmented flow. Femoral Vein: Compressible, normal color flow and augmentation. Popliteal Vein: Compressible, normal augmentation. Deep Reflux: There is no evidence of reflux in the deep system in either the common femoral vein, superficial femoral or the popliteal vein. 2. SUPERFICIAL ULTRASOUND WITH DOPPLER OF RIGHT LOWER EXTREMITY: GREAT SAPHENOUS VEIN: Saphenofemoral Junction: 0.8 cm; Reflux: 0 ms Proximal Thigh: 0.4 cm; Reflux: 0 ms Mid Thigh: Not visualized Distal Thigh: Not visualized At Knee: Not visualized Below Knee/Proximal Calf: Not visualized Mid Calf: 0.4 cm; Reflux: >2150 ms Ankle/Distal Calf: 0.4 cm; Reflux: 1200 ms Medial accessory GREAT SAPHENOUS VEIN: Saphenofemoral Junction: 0.4 cm; Reflux: 0 ms SMALL SAPHENOUS VEIN: Drainage: Popliteal vein Saphenopopliteal Junction: 0.3 cm; Reflux: 0 ms Mid calf: 0.2 cm; Reflux: 0 ms Distal: 0.2 cm; Reflux: 0 ms VEIN OF GIACOMINI: Size: NA cm Reflux: NA ms PERFORATORS: Location: Small saphenous vein, mid Size: 0.2 cm Reflux: 0 ms Location: Greater saphenous vein, mid calf Size: 0.4 cm Reflux: 0 ms VARICOSITIES > 3mm: Location: Great saphenous vein, mid calf Size: 0.3 cm Reflux: 0 ms 3. DEEP VENOUS ULTRASOUND OF THE LEFT LOWER EXTREMITY: Common Femoral Vein: Compressible, normal respiratory variation and augmented flow. Femoral Vein: Compressible, normal color flow and augmentation. Popliteal Vein: Compressible, normal augmentation. Deep Reflux: There is no evidence of reflux in the deep system in either the common femoral vein, superficial femoral or the popliteal vein. 4. SUPERFICIAL ULTRASOUND WITH DOPPLER OF LEFT LOWER EXTREMITY: GREAT SAPHENOUS VEIN: Saphenofemoral Junction: 0.6 cm; Reflux: 0 ms Proximal Thigh: 0.5 cm; Reflux: 0 ms Mid Thigh: 0.1 cm; Reflux: 0 ms Distal Thigh: Not visualized At Knee: Not visualized Below Knee/Proximl calf: Not visualized Mid Calf: Not visualized Distal Calf/Ankle: 0.3 cm; Reflux: 1700 ms Medial accessory GREAT SAPHENOUS VEIN: Saphenofemoral Junction: 0.3 cm; Reflux: 0 ms SMALL SAPHENOUS VEIN: Drainage: Gastrocnemius Saphenopopliteal Junction: 0.2 cm; Reflux: 0 ms Mid calf: Not visualized Distal calf: 0.1 cm; Reflux: 0 ms VEIN OF GIACOMINI: Size: NA Reflux: NA PERFORATORS: Location: Greater saphenous vein, mid thigh Size: 0.1 cm Reflux: 0 ms Location: Greater saphenous vein, distal calf Size: 0.4 cm Reflux: 0 ms VARICOSITIES > 3mm: Location: None Imaged US/US venous duplex LE BI IMPRESSION: Right: Great saphenous vein is not visualized between the thigh to below the knee. There is reflux/incompetence in the mid calf and ankle region. Left: Great saphenous vein is not visualized from above the knee to the mid calf. At the level of the ankle joint, incompetence is demonstrated. Electronically signed by: Kristian Payne MD 02/26/2025 03:20 PM EST
--- OUTSIDE RECORDS SUMMARY | 2025-02-26 15:04 | XMS_ITS | Patient Health Record ---
Author Organization [facility] [place] Address [address] [place] [address] Care Team Providers Care Ela Teacher Name Role Phone Osorio Delgado MD Primary Care Provider Unavailab Shmuel Lela Unavailable [phone] Reason For Referral No Information Medications Medication [...] Status Risk Notes Problem Acquired hallux rigidus (9912512) Hallux rigidus, left foot (M20.22) Active confirmed Problem Acquired hallux rigidus (0228354) Hallux rigidus, right foot (M20.21) Active confirmed Plan Of Treatment Pending Test Test Name Order Date X ray : Foot, left 3V 03/28/2019 Insurance Providers Payer Name Payer Address Payer Phone Subscriber Number Group Number Insured Name Patient Relationship to Insured Coverage Start Date Coverage End Date Medicare National Govt SvTravelZeeky [facility] [address] [place] [address] [id number] Yoshi Mackenzie Self - patient is the insured [employer] [facility] [address] [place] [address] [phone] [id number] Yoshi Mackenzie Self - patient is the insured Medical (General) History Medical History History ICD Code Anxiety Arthritis Back,Hip,and Knee pain CAD (Cholesterol) Hiatal hernia High blood pressure Reflux ( GERD) Chicken pox Surgical History Surgery Date(Month/Year) hernia knee surgery, right Stent put in 07/05
--- OUTSIDE RECORDS SUMMARY | 2025-02-26 15:04 | XMS_ITS | Patient Health Record ---
Author Organization [facility] Address [address] [place] [id number] Care Team Providers Care Director Of Investigations Name Role Phone Danny (RETIRED) Osorio BENSON [...] Status Risk Notes Problem Colon cancer screening (043128455) Colon cancer screening (Z12.11) Active confirmed Problem History of polyp of colon (situation) (782704770) Personal history of colonic polyps (Z86.010) Active confirmed Problem Gastroesophageal reflux disease (743051585) Gastroesophageal reflux disease (K21.9) Active confirmed Problem Gastroesophageal reflux disease without esophagitis (594666465) Gastroesophageal reflux disease without esophagitis (K21.9) Active confirmed Problem Long-term current use of antiplatelet drug (093302713704342) Long-term use of aspirin therapy (Z79.82) Active confirmed Problem Constipation (80291323) Constipation, unspecified constipation type (K59.00) Active confirmed Plan Of Treatment Future Test Test Name Order Date COLONOSCOPY 09/16/2011 UPPER GI ENDOSCOPY 09/29/2017 COLONOSCOPY 09/29/2017 UPPER GI ENDOSCOPY 05/20/2022 COLONOSCOPY 05/20/2022 COLONOSCOPY 09/29/2023 Insurance Providers Payer Name Payer Address Payer Phone Subscriber Number Group Number Insured Name Patient Relationship to Insured Coverage Start Date Coverage End Date MEDICARE OF [place] [address] [facility] [place] [address] [phone] [id number] JAK RINALDI Self - patient is the insured [employer] CLAIMS [address] [place] [phone] [id number] JAK RINALDI Self - patient is the [...]
== END 2025-02-26 13:29 | disposition home or self-care (01) ==
LOC: HO.US 13:28
PROVIDERS: PCP Physician Assistant; Visit Provider Physician Assistant
DX: M79.604 Pain in right leg (principal); M79.605 Pain in left leg
CPT/HCPCS: 93970

== ENCOUNTER → 2025-02-26 13:30 | Outpatient (BNV) | payer MEDICARE, SELFPAY | PROVIDERS: PCP Physician Assistant; Visit Provider Radiology Diagnostic Radiology | DX: M79.604 Pain in right leg (principal) | CPT/HCPCS: 93970 ==

== ENCOUNTER 2025-03-21 14:34 | Outpatient (AMB) | payer MEDICARE, SELFPAY ==
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
== END 2025-03-21 15:32 | disposition home or self-care (01) ==
LOC: HO.HOP 14:34
PROVIDERS: PCP Physician Assistant; Visit Provider Psychiatry & Neurology Psychiatry
DX: F41.1 Generalized anxiety disorder (principal); F43.10 Post-traumatic stress disorder, unspecified; F41.0 Panic disorder [episodic paroxysmal anxiety]
CPT/HCPCS: 99214

== ENCOUNTER → 2025-03-21 14:34 | Outpatient (BNVA) | payer MEDICARE, SELFPAY | PROVIDERS: PCP Physician Assistant; Visit Provider Psychiatry & Neurology Psychiatry | DX: F41.1 Generalized anxiety disorder (principal); F43.10 Post-traumatic stress disorder, unspecified; F41.0 Panic disorder [episodic paroxysmal anxiety] | CPT/HCPCS: 99212 ==